=== PATIENT | male | born 1950 | race Caucasian/White ===

== ENCOUNTER 2017-05-02 15:27 | Outpatient (CLI) | payer MEDICARE ==
[2017-05-02] MEDS ORDERED: Iopamidol 370 76% 100 ML VIAL ONE (16:03)
--- NOTE | 2017-05-02 17:13 | CT ---
CT OF THE NECK SOFT TISSUES WITH CONTRAST 05/02/17 COMPARISON: None. HISTORY: Left neck mass and scratchy throat for three weeks. Oral ulceration. TECHNIQUE: Multiple contiguous axial images were obtained in a CT of the neck with contrast. Sagittal and coron al reformats were performed. FINDINGS: There is soft tissue fullness of the palatine tonsils, left greater than right. This soft tissue pro minence appears to touch the uvula. The left parapharyngeal space is slightly displaced laterally. T here are mildly enlarged round left zone 2 lymph nodes in the neck. The largest measures 1.7 cm in g reatest dimension and is slightly decreased in density compared to the others. No enlarged right cer vical lymph nodes are seen. Postsurgical changes are seen from left carotid endarterectomy. Moderate atherosclerotic disease is seen surrounding the right carotid bifurcation with greater than 50% stenosis of the proximal internal sales engineer al carotid artery on the right. Soft tissue swelling is seen in the posterior aspect of the right nasopharynx with opacification of the right ethmoid air cells. The left ethmoid air cells and left nasopharynx are unremarkable. There is mucosal thickening in the right maxillary sinus. The other paranasal sinuses are well aerated. T he mastoid air cells are well aerated. No mucosal abnormality is seen in the subglottic region. The thyroid is unremarkable. The salivary glands are symmetric without focal abnormality. IMPRESSION: 1. Left cervical adenopathy. 2. Soft tissue fullness in the region of the palatine tonsils. Correlate with physical examinat ion. 3. Soft tissue density in the posterior right nasopharynx with opacification of the right masto id air cells. A mass in this location cannot be excluded. Correlate with direct visualization. POS: [facility]
== END 2017-05-02 15:28 | disposition home or self-care (01) ==
LOC: CT 15:27
PROVIDERS: ATTEND Specialist
DX: R22.1 Localized swelling, mass and lump, neck (principal); R59.0 Localized enlarged lymph nodes; J35.8 Other chronic diseases of tonsils and adenoids
CPT/HCPCS: 70491

== ENCOUNTER 2017-05-17 08:39 | Outpatient (CLI) | payer MEDICARE ==
--- NOTE | 2017-05-19 16:33 | PET ---
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 COMPARISON: CT neck soft tissues dated 05/02/17. TECHNIQUE: PET CT performed after the intravenous administration of 12.[address] performed for attenuation purposes only. FINDINGS: At the left palatine tonsil is a mass which is hypermetabolic with central ulceration. This has max SUV of 24.08. There are a total of four (4) abnormal lymph nodes in the left neck. One lymph node in Level IIA has SUV max of 4.95 and measures 7.0 x 12.0 mm. There are two separate lymph nodes in Level IIB which a re abnormal, which are closely approximated. These have a SUV max of 6.78. The more anterior of the lymph nodes measures 1.1 x 1.0 cm and the more posterior lymph node measures 0.9 x 1.0 cm. There is another abnormal Level IIA lymph node with partial loss of the fatty hilum measuring 1.7 x 1.3 cm wi th SUV max 8.45. There is some encephalomalacia in the left HSE MANAGER territory with decreased metabolism. No evidence for distal hypermetabolic metastatic disease. No evidence for contralateral cervical esther nopathy. There is extensive mucosal sinus disease right ethmoids with some high density material which may re present fungal disease versus inspissated secretions. Moderate atherosclerotic plaque of the aorta. Appendix is normal. No dilated loops of large or small bowel. IMPRESSION: 1. FDG-avid malignancy left palatine tonsil with left cervical Level IIA and IIB metastatic lymph n odes, a total of four lymph nodes. Measurements and SUV values are given above. 2. 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 POS: [facility]
== END 2017-05-17 08:40 | disposition home or self-care (01) ==
LOC: PET 08:39
PROVIDERS: ATTEND Radiology Radiation Oncology
DX: C09.8 Malignant neoplasm of overlapping sites of tonsil (principal)
CPT/HCPCS: 78815; A9552

== ENCOUNTER 2017-08-25 08:00 | Outpatient (CLI) | payer MEDICARE ==
--- NOTE | 2017-08-25 09:47 | CT ---
CT NECK WITH CONTRAST: Date: 08/25/17 HISTORY: 66-year-old male with left tonsillar cancer, status post chemotherapy. Restaging. COMPARISON: None. FINDINGS: No evidence of osteonecrosis. The nonspecific mild asymmetric effacement of the left side of the orop haryngeal airway. Otherwise, no evidence of recurrent neoplasm in the region of the palatine tonsils. No other abnormality of pharyngeal mucosal space. Heavy atherosclerotic calcification of right proxi mal internal carotid artery and carotid bulb. Multiple surgical clips in the left carotid space. The retropharyngeal, posterior cervical, submandibular, parotid, directory clerk, and perivertebral space are unremarkable. There is no cervical lymphadenopathy. IMPRESSION: 1. No convincing evidence of recurrent or residual malignant neoplasm. 2. Carotid atherosclertosis. 3. status post neck surgery, either carotid endarterectomy or lymph node dissection. POS: [facility]
[2017-08-25] MEDS ORDERED: Iopamidol 370 76% 100 ML VIAL ONE (13:39)
== END 2017-08-25 08:01 | disposition home or self-care (01) ==
LOC: CT 08:00
PROVIDERS: ATTEND Radiology Radiation Oncology
DX: C09.8 Malignant neoplasm of overlapping sites of tonsil (principal); I65.29 Occlusion and stenosis of unspecified carotid artery
CPT/HCPCS: 70491

== ENCOUNTER 2017-12-31 12:56 | Outpatient (CLI) | payer MEDICARE ==
--- NOTE | 2017-12-31 13:47 | RAD ---
PA AND LATERAL CHEST: HISTORY: Chest pain. FINDINGS: Heart size is within normal limits. There are postop sternotomy changes. The lungs are clear of inf iltrates. Arthritic changes of the spine are noted. IMPRESSION: No active intrathoracic disease. POS: [facility]
== END 2017-12-31 12:57 | disposition home or self-care (01) ==
LOC: RAD 12:56
PROVIDERS: ATTEND Thoracic Surgery (Cardiothoracic Vascular Surgery)
DX: I25.110 Atherosclerotic heart disease of native coronary artery with unstable angina pectoris (principal)
CPT/HCPCS: 71046

== ENCOUNTER 2018-02-12 15:55 | Inpatient (IN) | payer MEDICARE ==
[2018-02-12 16:25] LABS: Hemoglobin 10.5 g/dL (14.0-18.0); Mean Corpuscular HGB CONC 33.9 g/dL (32.0-36.0); Mean Corpuscular Volume 91.3 fL (78.0-98.0); Mean Platelet Volume 6.6 fL (7.4-10.4); Platelet Count 299 thou/uL (130-400); RBC Distribution Width 11.4 % (11.5-14.5); White Blood Cell (WBC) Count 13.5 thou/uL (4.8-10.8)
[2018-02-12 16:45] LABS: ALT (SGPT) 86 U/L (8-55); AST (SGOT) 92 U/L (5-34); Albumin 3.1 g/dL (3.4-4.8); Alkaline Phosphatase 233 U/L (40-150); Anion Gap 13 mmol/L (10-20); BUN (Urea Nitrogen) 62 mg/dL (8.4-25.7); Bilirubin, Total 0.5 mg/dL (0.2-1.2); Calc. Creatinine Clearance 0 mL/min (70-130); Carbon Dioxide 32 mmol/L (23-31); Chloride 97 mmol/L (98-107); Estimated GFR-MDRD 33; Globulin 3.7 g/dL (2.4-3.5); Glucose 120 mg/dL (80-115); Potassium 4.3 mmol/L (3.5-5.1); Protein, Total 6.8 g/dL (5.8-8.1); Sodium 138 mmol/L (136-145)
[2018-02-12 16:49] LABS: CKMB 0.7 ng/mL (0-6.6); Troponin I 0.024 ng/mL (< 0.028)
[2018-02-12 16:50] LABS: Eosinophils 7 % (0-10); Lymphocytes 6 % (21-51); MDiff Complete? YES; Monocytes 11 % (0-10); Neutrophil 74 % (42-75); Ovalocytes SLIGHT = 2-5 cells (100X) (0-1/hpf); PLT Morphology Comment Appears Adequate; Polychromasia SLIGHT = 2-3 cells (100X) (0-2/hpf)
[2018-02-12 16:51] LABS: Calcium 15.9 mg/dL (7.8-10.44)
[2018-02-12 17:36] LABS: Bilirubin Negative (Negative); Blood, Urine Negative (Negative); Clarity CLEAR (Clear); Glucose, Urine (Dipstick) Negative (Negative); Leukocyte Small (Negative); Nitrite Negative (Negative); Protein, Urine (Dipstick) Negative (Neg-Trace); Specific Gravity, Urine 1.017 (1.002-1.036); Urobilinogen 0.2 mg/dL (0.2-1.0)
[2018-02-12 17:38] LABS: Bacteria/HPF None Seen HPF (None Seen); Hyaline Casts/LPF 0-3 HYALINE CAST LPF (0-3 Hyaline); Pathc Cast-AUWi Flag 0.72 (0-2.49); Squamous Epithelial 0-3 HPF (0-3)
[2018-02-12 17:52] LABS: RBC/HPF 0-3 HPF (0-3)
[2018-02-12 17:53] LABS: Crystals/HPF 1+ CA OXALATE HPF (Negative)
[2018-02-12] MEDS ORDERED: Sodium Chloride 0.9% 0 ML ONE (18:00)
[2018-02-12] MEDS ORDERED: cefTRIAXone\\ROCEPHIN 1 GM VIAL ONE (18:00)
--- NOTE | 2018-02-12 18:20 | CT ---
NONCONTRAST CT HEAD: 02/12/18 HISTORY: Altered mental status. COMPARISON: None available. FINDINGS: There is encephalomalacia seen within the left parieto-occipital lobe which may represent remote area of infarction. Small area of encephalomalacia is seen within the left frontal lobe superiorly, also likely related to prior ischemic event. There is no evidence of an acute cortical infarction, hemorrh age, mass effect or midline shift. There is mild ex vacuo dilatation of the occipital horn left later al ventricle. Mild cerebral volume loss is noted. There is minimal mucosal thickening in each maxillary antrum, right sphenoid sinus, and a few ethmoid al air cells bilaterally. The mastoid air cells are clear. calvarial structures are intact. IMPRESSION: 1. No acute intracranial abnormality is demonstrated. 2. Areas of encephalomalacia in the left frontal lobe as well as involving the left parieto-occi pital lobe which are likely related to remote areas of infarction. 3. Mild sinus disease. POS: [facility]
--- NOTE | 2018-02-12 18:35 | RAD ---
CHEST ONE VIEW: 02/12/18 HISTORY: Weakness. COMPARISON: Chest radiograph 12/31/17. FINDINGS: There is a new moderate sized layering right pleural effusion. Heart size is mildly enlarged. Mild pu lmonary venous congestion. Compressive atelectasis right lung base. IMPRESSION: Large right new pleural effusion. POS: [facility]
[2018-02-12] MEDS ORDERED: Sodium Chloride 0.9% 1,000 ML IV SCH (20:36)
[2018-02-12 22:37] LABS: Calcium 14.9 mg/dL (7.8-10.44)
[2018-02-13 00:04] LABS: Anion Gap 15 mmol/L (10-20); BUN (Urea Nitrogen) 60 mg/dL (8.4-25.7); Calc. Creatinine Clearance 42 mL/min (70-130); Carbon Dioxide 26 mmol/L (23-31); Chloride 99 mmol/L (98-107); Estimated GFR-MDRD 35; Glucose 121 mg/dL (80-115); Sodium 136 mmol/L (136-145)
[2018-02-13] MEDS: Sodium Chloride 0.9% 1,000 ML IV SCH ×6 (02:00→22:55)
[2018-02-13] MEDS ORDERED: Ondansetron HCl/PF 4 MG/2 ML Vial IVP PRN (03:05)
[2018-02-13] MEDS ORDERED: Calcium Carbonate 500 MG ChewTAB PO PRN (03:05)
[2018-02-13] MEDS ORDERED: Bisacodyl 10 MG SUPP PR PRN (03:05)
[2018-02-13] MEDS ORDERED: Mag-Al 1200 mg/1200 mg/30 ML UDCUP PO PRN (03:05)
[2018-02-13] MEDS ORDERED: Ondansetron ODT 4 MG TAB PO PRN (03:05)
[2018-02-13] MEDS ORDERED: Nitroglycerin 0.4 MG TAB (25 Tab Bottle) PO PRN (03:17)
[2018-02-13] MEDS ORDERED: hydrALAZINE 20 MG/ML VIAL SLOW IVP PRN (03:18)
[2018-02-13] MEDS ORDERED: Calcitonin,Salmon,Synthetic 200 UNITS/ML SC SCH (04:00)
[2018-02-13 05:42] LABS: Albumin 2.7 g/dL (3.4-4.8); Anion Gap 13 mmol/L (10-20); BUN (Urea Nitrogen) 59 mg/dL (8.4-25.7); BUN/Creatinine Ratio 32.24; Calc. Creatinine Clearance 44 mL/min (70-130); Carbon Dioxide 29 mmol/L (23-31); Chloride 101 mmol/L (98-107); Estimated GFR-MDRD 37; Glucose 90 mg/dL (80-115); Phosphorus 3.8 mg/dL (2.3-4.7); Potassium 4.1 mmol/L (3.5-5.1); Sodium 139 mmol/L (136-145)
[2018-02-13 05:44] LABS: Calcium 14.8 mg/dL (7.8-10.44)
[2018-02-13 05:47] LABS: LDH 419 U/L (125-220); Lipase 11 U/L (8-78)
[2018-02-13 06:05] LABS: Thyroid Stimulating Hormone 0.8303 uIU/mL (0.35-4.94); Vitamin D, 25 Hydroxy 34.3 ng/ml (> 30.0)
[2018-02-13 06:46] LABS: Vitamin B12 Greater than 2000 pg/mL (211-911)
--- NOTE | 2018-02-13 09:00 | HP ---
DATE OF ADMISSION: 02/12/2018 The patient was seen and examined on 02/12/2018. PRIMARY CARE PHYSICIAN: Shun Cunningham M.D. PRIMARY DIRECTOR ACUTE: Dr. Pinzon. PRIMARY ONCOLOGIST: Dr. Mederos. CHIEF COMPLAINT: Generalized weakness and loss of appetite. HISTORY OF PRESENT ILLNESS: The patient is a 67-year-old white male with a tonsillar cancer, diagnos ed last year; coronary artery disease, status post non-ST elevation [place], last admission; hypertension; hyperlipidemia; and peripheral vascular disease; was brought in to the emergency room by family with above complaints. The patient was evaluated by his PCP 3 days ago for similar complaint. 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 He completed radiation and chemotherapy. He was evaluated by Dr. Mederos 2 months ago. Over the past 2 months, the patient has been progressively declining. He has lost approximately 3 pounds in the last week. His weakness got worse over the last 24 hours to the extent that he was unable to get up from the commode. He gets short of breath on mild to moderate exertion. He had some diarrhea th at has resolved. No vomiting reported. PAST MEDICAL HISTORY: 1. Tonsillar cancer, invasive poorly differentiated, diagnosed last year, completed chemotherapy and radiation. 2. Coronary artery disease, status post non-ST elevation [place] as well as CABG. 3. Peripheral vascular disease. 4. Hypertension. 5. Hyperlipidemia. 6. Left carotid artery stenosis, status post angioplasty. 7. Former smoker. PAST SURGICAL HISTORY: 1. Hernia repair. 2. Bilateral lower extremity angioplasty. 3. Coronary artery bypass grafting. 4. Left carotid endarterectomy. ALLERGIES: No known drug allergies. CURRENT HOME MEDICATIONS: Aspirin 81 mg daily, Coreg 6.25 mg b.i.d., vitamin B12 of 1000 mcg daily, iron daily, lisinopril 5 mg at bedtime. The patient also takes Aleve on a daily basis which helps hi m to sleep. SOCIAL HISTORY: The patient currently lives at home with his . He is retired from [employer]. He is a former smoker. No alcohol or drug use. He makes his own decisions with the help of his family. FULL CODE. FAMILY HISTORY: Mother with coronary artery disease. REVIEW OF SYSTEMS: The following complete review of systems was negative, unless otherwise mentioned in the HPI or below: Constitutional: Weight loss or gain, ability to conduct usual activities. Sk in: Rash, itching. Eyes: Double vision, pain. ENT/Mouth: Nose bleeding, neck stiffness, pain, te nderness. Cardiovascular: Palpitations, dyspnea on exertion, orthopnea. Respiratory: Shortness of breath, wheezing, cough, hemoptysis, fever or night sweats. Gastrointestinal: Poor appetite, abdom inal pain, heartburn, nausea, vomiting, constipation, or diarrhea. Genitourinary: Urgency, frequenc y, dysuria, nocturia. Musculoskeletal: Pain, swelling. Neurologic/Psychiatric: Anxiety, depressio n. Allergy/Immunologic: Skin rash, bleeding tendency. PHYSICAL EXAMINATION: VITAL SIGNS: In the emergency room, temperature 98.5, respirations 16, pulse 94, blood pressure 145/ 79 with O2 saturation 100% on room air. GENERAL: A 67-year-old male, ill-appearing with generalized weakness. HEENT: Head atraumatic, normocephalic. Sclerae are anicteric. Dry mucous membranes. No oral lesio n. NECK: Supple, no JVD appreciated. No carotid bruit. LUNGS: Showed diminished air entry at right base with scattered rhonchi. Lungs were symmetrical. N o wheezing appreciated. HEART: S1, S2 present. Regular rate and rhythm. No murmur, rubs, or gallops appreciated. ABDOMEN: Soft, bowel sounds present. No rebound, guarding, no costovertebral angle tenderness. EXTREMITIES: No edema or calf tenderness. NEUROLOGIC: Grossly nonfocal, moves all four extremities. PSYCHIATRIC: Alert, awake, oriented x3. Slow to respond. PERIPHERAL VASCULAR: Radial pulses palpable bilaterally. MUSCULOSKELETAL: No joint swelling or tenderness. LABORATORY AND X-RAY FINDINGS: 1. CT scan of the brain was negative for acute findings. 2. Chest x-ray by my review showed large right-sided new pleural effusion. 3. Calcium of 15.9 with creatinine 2.0, BUN 62. His creatinine in June was 1.11. 4. Alkaline phosphatase 233, AST 92, ALT 86, albumin 3.1. BNP 137. Sodium 138, potassium 4.3, chlo ride 97, bicarbonate 32. 5. WBC was 13.5 with hemoglobin 10.5, hematocrit 31, platelet 299 without significant left shift. 6. EKG by my review showed sinus rhythm with nonspecific ST-T wave changes in the lateral leads. IMPRESSION: 1. Generalized weakness, multifactorial. 2. Severe hypercalcemia. 3. Acute kidney injury on chronic kidney disease, stage 2. 4. Dehydration. 5. Abnormal liver function tests of unclear etiology. 6. Moderate protein calorie malnutrition. 7. Coronary artery disease, status post coronary artery bypass grafting and myocardial infarction in the past. 8. Peripheral vascular disease. 9. Hypertension. 10. New right-sided pleural effusion. 11. Former smoker. 12. Hyperlipidemia. 13. Pyuria, rule out urinary tract infection. PLAN: The patient will be monitored on the telemetry unit. We will continue aggressive IV hydration for hypercalcemia. We will repeat labs to confirm hypercalcemia. We will check phosphorus and para thyroid hormone level. We will consult Oncology and Nephrology. We will consult dietitian for poor appetite. He was advised to discontinue nonsteroidal anti-inflammatory drugs. Echocardiogram will b e obtained. We will also get right upper quadrant ultrasound due to abnormal liver function tests. We will check cortisol, TSH, vitamin B12, folic acid. Check LDH in a.m. PT, OT will be consulted. If the patient does not respond to IV hydration, we will consider zoledronic acid. Plan of care was discussed with the patient and the family at the bedside. They stated understanding .
[2018-02-13] MEDS: Carvedilol 6.25 MG TAB PO SCH ×2 (09:11→16:34)
[2018-02-13] MEDS: Folic Acid 1 MG TAB PO SCH ×2 (09:11→20:19)
[2018-02-13] MEDS: Famotidine 20 MG TAB PO SCH (09:11)
[2018-02-13] MEDS: Senokot S 8.6-50 MG TAB PO SCH ×2 (09:12→20:19)
[2018-02-13] MEDS: Polyethylene Glycol 3350 17 GM Packet PO SCH ×2 (09:12→20:19)
--- NOTE | 2018-02-13 10:51 | ULT ---
RIGHT UPPER QUADRANT ULTRASOUND: History: Abnormal liver function test. There is a history of esophageal cancer. FINDINGS: Gallbladder is poorly distended. There are numerous echogenic foci seen along the gallbladder which c ould represent polyps or nonshadowing gallstones. There is echogenic sludge/gravel within the gallbla dder. Gallbladder wall is mildly prominent, accentuated by the mild contraction of the gallbladder. Common bile duct is normal caliber measured at 3 mm. The liver is mildly heterogeneous. There are two hypoechoic nodular masses seen in the liver, one in the right lobe measuring 1 to 1.5 cm and another in the left lobe measuring approximately 1.5 cm. Small amount of ascites is seen along the liver margin. There is a right pleural effusion identified. The right kidney measures 11.6 cm in length and appears unremarkable. The pancreas is obscured. IMPRESSION: 1. Numerous gallbladder polyps and/or nonshadowing gallstones along the gallbladder wall. The gallbla dder is mildly contracted. Dense sludge/gravel is seen layering dependently in the gallbladder. 2. The liver is heterogenous. There are at least two hypoechoic masses seen which are concerning for metastatic lesions. Recommend further evaluation of the abdomen with CT scan with and without contras t. POS: [facility]
--- NOTE | 2018-02-13 11:04 | ULT ---
RENAL SONOGRAM: 02/13/2018 HISTORY: Acute renal insufficiency. FINDINGS: The kidneys demonstrate a normal sonographic appearance bilaterally without evidence of a renal mass, a renal calculus, or hydronephrosis. The right kidney measures 11.6 cm x 5.4 cm with the left kidne y measuring 11.1 cm x 6.9 cm. The urinary bladder is incompletely distended but has a normal sonographic appearance. Color-flow ev aluation does demonstrate ureteral jets bilaterally on color-flow evaluation. The prostate gland is slightly heterogeneous and mildly prominent. IMPRESSION: Normal appearing bilateral kidneys without evidence of hydronephrosis. POS: [facility]
[2018-02-13] MEDS ORDERED: Lidocaine 1% (PF) 30 ML VIAL ONE (11:22)
[2018-02-13 11:54] LABS: Anion Gap 12 mmol/L (10-20); BUN (Urea Nitrogen) 55 mg/dL (8.4-25.7); Calc. Creatinine Clearance 42 mL/min (70-130); Carbon Dioxide 27 mmol/L (23-31); Estimated GFR-MDRD 35; Glucose 113 mg/dL (80-115); Potassium 4.1 mmol/L (3.5-5.1); Sodium 139 mmol/L (136-145)
--- NOTE | 2018-02-13 11:58 | CON ---
DATE OF CONSULTATION: 02/13/2018 HISTORY OF PRESENT ILLNESS: Mr. Villalobos is a 67-year-old white male who was admitted for generalized w eakness and decreased appetite. He is complaining of these signs and symptoms for the last 3 weeks. He did see his PCP. He was noted to be anemic/low iron and was given supplemental iron. Due to the persistent generalized malaise and weakness the patient was admitted for further management. During the initial evaluation, he was noted to have acute kidney injury with hypercalcemia. Her initial ca lcium was noted to be more than 15. He received calcitonin. He also is receiving normal saline at 2 00 mL per hour. We are now being consulted for further management of his acute kidney injury. REVIEW OF SYSTEMS: Positive for generalized malaise. No nausea, decreased appetite. No joint pains , no syncopal episode, no productive cough, no fever or chills, no shortness of breath, no gross tracie turia, no dysuria, no urinary frequency. Decreased energy level. No new skin rash, no diplopia, no headache, no dysuria, no urine frequency. MEDICATIONS: Status post calcitonin, aspirin 81 mg every day, Tums 1000 mg p.r.n., Coreg 6.25 mg b.i .d., Pepcid 20 mg once a day, Folvite 1 mg p.o. b.i.d., Zofran 4 mg IV q.6 hours, normal saline at 20 0 mL an hour. PAST MEDICAL HISTORY: Shows history of coronary artery disease, tonsillar cancer, invasive poorly di fferentiated, diagnosed last year, status post chemotherapy and radiation, peripheral vascular diseas e, hypertension, hyperlipidemia. History of left carotid artery stenosis. PAST SURGICAL HISTORY: 1. Status post tonsillar biopsy. 2. Status post hernia repair. 3. Status post bilateral lower extremity angioplasty. 4. Status post angioplasty of left carotid artery stenosis. 5. Status post cardiac catheterization. 6. Status post CABG. ALLERGIES: None. TRAUMA: None. IMMUNIZATIONS: Up to date. HOSPITALIZATIONS: Please see past medical history. SOCIAL HISTORY: The patient is , retired production maintenance technician. One child. He lives in [facility]. He used to smoke heavily, 2 packs per day for about 30 years. Moderate alcohol drinker, but no a lcohol in the last 3 weeks. Education: High school. No IV drug abuse. No blood transfusion. FAMILY HISTORY: No family history of ESRD. PHYSICAL EXAMINATION: VITAL SIGNS: Blood pressure 180/89, heart rate 68, respiratory rate 18, temperature 97.7, pulse ox 9 5%. GENERAL: Noted to be awake, alert, comfortable, not in overt distress. SKIN: Adequate turgor. HEENT: He has pinkish conjunctivae, anicteric sclerae. NECK: No neck mass, no carotid bruits, no JVD. CHEST: No deformities. LUNGS: Clear breath sounds, no wheezing, no crackles. HEART: Normal sinus rhythm. No murmur, no gallops or rubs. ABDOMEN: Globular, soft, nontender, no masses. EXTREMITIES: No edema, no deformities. LABORATORY: 02/12/2018 - White count 13.5, hemoglobin 10.5. Sodium 139, potassium 4.1, chloride 101 , carbon dioxide 29, BUN 59, creatinine 1.83, calcium of 14.8, phosphorus 3.8, albumin 2.7, PTH is 8. 2. TSH 0.8. Further review of his serum calcium shows 02/12/2018 15.9. Urinalysis; specific gravity 1.017, positive for calcium oxalate, WBCs 7-10, RBCs, 0-3, no protein. Chest x-ray of 02/12/2018 shows right new pleural effusion. CT scan of the brain, no acute intracranial abnormality. Renal ultrasound pending. ASSESSMENT AND PLAN: 1. Acute kidney injury - this could be a hemodynamically mediated renal dysfunction in a background of decreased p.o. intake and decreased appetite. He has also been receiving lisinopril at home. The plan is aggressive volume repletion with this patient. Hold off lisinopril. No indication for any dialytic intervention. 2. Hypercalcemia. With the decrease PTH I am concerned of malignancy related hypercalcemia, especia lly in a background of tonsillar carcinoma. Hematology has been consulted. Please note the patient is status post calcitonin. No significant improvement in the hypercalcemia, consider zoledronic acid 4 mg IV over 15 minutes. I would at least check a PTH related protein with this patient, 125 hydrox yvitamin and 25 hydroxyvitamin D. 3. Acute kidney injury. The acute kidney injury hopefully will improve over time with aggressive volume repletion. Overall, prognosis remains guarded.
[2018-02-13 12:11] LABS: Chloride 104 mmol/L (98-107)
[2018-02-13 12:40] LABS: Fluid, Triglycerides 28 mg/dL (Not Available); Pleural Fluid, Amylase Less than 30 U/L (Not Available); Pleural Fluid, Glucose 93 mg/dL; Pleural Fluid, LDH 419 U/L (Not Available); Pleural Fluid, Protein 3.5 g/dL
[2018-02-13 13:14] LABS: BF Color Yellow; Body Fluid Source PLEURAL FLUID; Clarity Hazy (Clear); Tube # EDTA; WBC/NonHematic-Auto 766 /cumm
[2018-02-13 13:15] LABS: BF RBC Count - Manual 3475 /cumm
--- NOTE | 2018-02-13 13:27 | CON ---
DATE OF CONSULTATION: 02/13/2018 HISTORY: This is a 67-year-old gentleman who presented to the hospital with marked weakness. He saw Dr. Mederos, his oncologist, 2 weeks ago who said his cancer was apparently well controlled. He rec eived chemo and radiation for a tonsillar cancer. He denies any chest pain, though his said he is coughing, but no shortness of breath, fever or c hills. X-ray shows a large right pleural effusion. He has smoked in the past, quit smoking at the time when he had his coronary bypass graft surgery don e several years ago. Denies any previous history of TB, pneumonia or bronchitis. PAST MEDICAL HISTORY: Coronary artery disease, peripheral vascular disease, hypertension, history of tonsillar cancer, squamous cell, radiation and chemo. PAST SURGICAL HISTORY: Coronary bypass graft, left carotid endarterectomy, radiation and chemo to hi s left tonsillar area. Apparently some kind of a lower extremity vascular disease. HOME MEDICATIONS: His medicine from home includes Coreg 6.25, B12, aspirin, Zestril 5. SOCIAL HISTORY: He owned a business. REVIEW OF SYSTEMS: Otherwise, pertinent for significant weight loss. PHYSICAL EXAMINATION: GENERAL: He is in no distress. VITAL SIGNS: Blood pressure is 180/80, temperature 97, sats 100%, respiratory rate of 18. CHEST: Chest revealed decreased breath sounds in the right lung. Left lung unremarkable. CARDIAC: Normal S1, S2, no gallops. ABDOMEN: Soft. No masses. LABORATORY: Creatinine 1.83, calcium is 14.8. White count 13,000, hemoglobin and hematocrit 10 and 31, platelet count is normal. IMPRESSION: 1. Marked hypercalcemia. 2. Renal failure. 3. Squamous cell carcinoma. 4. Right pleural effusion. PLAN: Aggressive hydration. A diagnostic tap is being made, further recommendation after above. We will follow. This is a consultation note, 70 minutes, 50% spent in direct patient care.
[2018-02-13 13:30] LABS: BF Segmented Neutrophils 37 %; Cell Count Non Hematic 28 %; Eosinophils 22 %; Lymphocytes 12 %
--- NOTE | 2018-02-13 13:33 | OP ---
DATE OF PROCEDURE: 02/13/2018 SURGEON: Dr. Stan Cline PROCEDURE: Thoracentesis. PROCEDURE IN DETAIL: After informed consent, the patient is supine in bed. The right posterior thor ax was cleaned with chlorhexidine and 1% Xylocaine infiltrated into the right 9th intercostal space a nd midscapular and pleural cavity was entered, 20 mL of turbid yellow fluid was removed. Thereafter, using an 8 Malagasy catheter, a total of 2000 mL 2 liters was removed without difficulty. He did coug h during the procedure. There appears to be some additional fluid, but the procedure was terminated because of his coughing. Fluid will be sent for appropriate studies including cytology and culture.
--- NOTE | 2018-02-13 13:42 | RAD ---
1 VIEW CHEST: Date: 02/13/18 COMPARISON: 02/12/18. HISTORY: Status post thoracentesis. FINDINGS: Improved aeration of the right lung. Small amount of pleural and parenchymal changes in the right marycarmen g base do remain. Stable aeration of the left lung. Sternotomy wires are again noted. Stable configur ation of the cardiac silhouette. No definite pneumothorax. IMPRESSION: Improved aeration of the right lung. Residual pleural and parenchymal changes do remain. No pneumotho rax. POS: [facility]
[2018-02-13 14:30] LABS: Reference Lab Name LABCORP
[2018-02-13 14:31] LABS: Ref Lab Test Ordered PTH RELATED PEPTIDE
[2018-02-13] MEDS: Heparin 5,000 UNITS/ML VIAL SC SCH (20:20)
--- NOTE | 2018-02-13 23:47 | CON ---
DATE OF CONSULTATION: 02/13/2018 REASON FOR CONSULTATION: Hypercalcemia. HISTORY OF PRESENT ILLNESS: Mr. 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 He was treated with radiation and chemotherapy, which was completed in 06/2017. There was no evidence of disease on endoscopy in November by Dr. Costa. He presented to his primary care 2 weeks ago with acute onset of bilateral lower extremity weakness with numbness and tingling. He also had trouble eating and lost approximately 20 pounds. CBC done at his primary care's office on 2017 showed a white count of 8.6 with a hemoglobin of 9.8 and platelet count 226 ,000. He had a serum iron of 21. He was started on IV iron. He presented to my clinic day before yesterday for workup for his anemia. He was alert and oriented, but continued to have difficulty ambulating. He had numbness and tingling that started his foot and extended up to his mid thigh bilaterally. The CBC showed a hemoglobin of 9.6. His chemistry provided from his primary care 2 weeks prior did show no elevation of calcium. He was given a B12 injection and instructed to follow up for possible CT scans of his spine. Yesterday they called our office, he was more confused and was instructed to come to the emergency room for further evaluation. A chest x-ray performed showed a large right pleural effusion. Brain CT showed no acute process. Dr. Cline was consulted and performed a thoracentesis with removal of 2000 mL of turbid yellow fluid and was sent for cytology and culture. The patient's calcium on admission was 14.8. He was given calcitonin and started on IV fluids as PTH is 8.2. His liver enzymes were mildly elevated. He had an abdominal ultrasound performed which showed a gallbladder polyps and sludge. His liver was heterogeneous with 2 hypoechoic masses that were concerning for metastatic lesions. His kidney function was compromised with a creatinine of 2.04. He has received IV fluids. Dr. Francois is managing his kidney function. He does feel somewhat better since arrival. PAST MEDICAL HISTORY: 1. Squamous cell carcinoma of the left tonsil, status post chemoradiation in . 2. Hypertension. 3. Hyperlipidemia. 4. Coronary artery disease. 5. Peripheral vascular disease. 6. Carotid stenosis. 7. Chronic tobacco use. 8. Questionable CVA in 2016. PAST SURGICAL HISTORY: 1. Hernia repair. 2. Carotid endarterectomy. 3. Bilateral angioplasty. 4. Coronary artery bypass grafting. ALLERGIES: No known drug allergies. HOME MEDICATIONS: 1. Aspirin 81 mg daily. 2. Coreg 6.25 mg b.i.d. 3. B12 daily. 4. Iron b.i.d. 5. Lisinopril 5 mg daily. FAMILY HISTORY: No known history of malignancy. SOCIAL HISTORY: He is and has 3 children, lives with his spouse. He is a former smoker, quit in 2014. No alcohol or illicit drug use. REVIEW OF SYSTEMS: Constitutional: No fever, chills, night sweats. Eyes: No blurred or double vision. ENT: No pain, hoarseness, sore throat, dysphagia. Cardiovascular: No chest pain, palpitations, syncope. Respiratory: No shortness of breath, dyspnea on exertion. Gastrointestinal: Positive for nausea, no vomiting, constipation or abdominal pain. Genitourinary: No dysuria or hematuria. Musculoskeletal: Positive for back pain and bilateral lower extremity weakness. Skin: No rash. Hematologic: No bleeding, bruising or clotting. Neurologic: Positive for weakness, numbness and tingling. No headache or seizure disorder. Psychiatric: No anxiety or depression. PHYSICAL EXAMINATION: VITAL SIGNS: Temperature is 98.2, pulse is 83, respiratory rate 20, blood pressure is 170/84. GENERAL: Well-developed, well-nourished male, in no acute distress. HEENT: Normocephalic, atraumatic. Pupils are equal and reactive to light. NECK: Supple. CARDIOVASCULAR: Regular rate and rhythm. LUNGS: Clear. ABDOMEN: Soft, nontender, bowel sounds are positive. EXTREMITIES: No clubbing, cyanosis or edema. SKIN: No rash. HEMATOLOGIC: No petechia or purpura. NEUROLOGICAL: Nonfocal. PSYCHIATRIC: The patient is alert and oriented and appropriate. PERTINENT LABORATORY AND X-RAYS: Current WBCs are 13.5, hemoglobin 10.5, hematocrit 31, platelet count is 299,000, 74% neutrophils, 6% lymphocytes, 11% monocytes. Sodium is 136, potassium 4.0, chloride 99, CO2 is 26, BUN is 60, creatinine 1.92, calcium is 14.7, phosphorus 3.7, bilirubin is 0.5, AST is 92, ALT is 86, alkaline phosphatase is 233, CK-MB is 0.7, troponin is 0.024, BNP is 137, serum total protein is 6.8, albumin 3.1, globulin 3.7. PTH is 8.2. Urine is negative for bacteria. ASSESSMENT: 1. Hypercalcemia. 2. Right pleural effusion. 3. Acute kidney injury. 4. History of squamous cell carcinoma of the left tonsil. DISCUSSION: The patient is on IV fluids. Calcitonin has been given. We will consider Zometa in few days if his calcium does not improve. We will await cytology on the pleural fluid. The patient needs a CT scan of his chest, abdomen, and pelvis once his kidneys have improved. The case was discussed with Dr. Francis who is currently salesperson corsets this weekend. Thank you for the consult. FELTON
[2018-02-14] MEDS: Sodium Chloride 0.9% 1,000 ML IV SCH ×4 (04:27→21:02)
[2018-02-14 05:12] LABS: Albumin 2.4 g/dL (3.4-4.8); Anion Gap 12 mmol/L (10-20); BUN (Urea Nitrogen) 56 mg/dL (8.4-25.7); BUN/Creatinine Ratio 30.27; Calc. Creatinine Clearance 44 mL/min (70-130); Carbon Dioxide 25 mmol/L (23-31); Chloride 107 mmol/L (98-107); Estimated GFR-MDRD 37; Glucose 87 mg/dL (80-115); Phosphorus 3.5 mg/dL (2.3-4.7); Potassium 3.7 mmol/L (3.5-5.1); Sodium 140 mmol/L (136-145)
[2018-02-14 05:43] LABS: Band 6 % (5-11); Eosinophils 1 % (0-10); Hemoglobin 8.7 g/dL (14.0-18.0); Hypochromia SLIGHT = 6-15 cells (100X) (0-5/hpf); Lymphocytes 1 % (21-51); MDiff Complete? YES; Mean Corpuscular HGB CONC 33.9 g/dL (32.0-36.0); Mean Corpuscular Hemoglobin 31.2 pg (27.0-31.0); Mean Corpuscular Volume 92.3 fL (78.0-98.0); Mean Platelet Volume 6.6 fL (7.4-10.4); Monocytes 11 % (0-10); Neutrophil 81 % (42-75); PLT Morphology Comment Appears Adequate; Platelet Count 225 thou/uL (130-400); RBC Distribution Width 11.5 % (11.5-14.5); Red Blood Cell (RBC) Count 2.78 mill/uL (4.70-6.10); White Blood Cell (WBC) Count 11.7 thou/uL (4.8-10.8)
[2018-02-14] MEDS: Senokot S 8.6-50 MG TAB PO SCH ×2 (09:24→21:02)
[2018-02-14] MEDS: Folic Acid 1 MG TAB PO SCH ×2 (09:24→21:02)
[2018-02-14] MEDS: Famotidine 20 MG TAB PO SCH (09:24)
[2018-02-14] MEDS: Carvedilol 6.25 MG TAB PO SCH ×2 (09:24→18:38)
[2018-02-14] MEDS: Heparin 5,000 UNITS/ML VIAL SC SCH ×2 (09:25→21:01)
[2018-02-14] MEDS: Polyethylene Glycol 3350 17 GM Packet PO SCH (09:28)
--- NOTE | 2018-02-14 11:29 | PRG ---
DATE OF SERVICE: 02/12/2018 SERVICE: Renal Medicine. SUBJECTIVE: Mr. Villalobos is a 67-year-old white male who was seen for his acute kidney injury as well a s hypercalcemia. He has received calcitonin and currently undergoing IV hydration. Renal function h as remained stable in the last 24 hours. He is continuing to receive normal saline. In the interim, he had thoracentesis done with 2 liters of fluid removed. He was evaluated by Dr. Sanchez in. Cytology was sent. No complaints of chest pain or shortness of breath. OBJECTIVE: VITAL SIGNS: Blood pressure is 168/74, heart rate 85, respiratory rate 22, temperature 98.8, pulse o x 94%. GENERAL: Noted to be awake, alert, comfortable, not in distress. SKIN: Adequate turgor. HEENT: Pinkish conjunctivae, anicteric sclerae. NECK: No neck mass, no carotid bruits, no JVD. CHEST: No deformities. LUNGS: Decreased breath sounds. HEART: Normal sinus rhythm. No murmur, no gallops, no rubs. ABDOMEN: Globular, soft, nontender, no masses. EXTREMITIES: No edema, no deformities. MEDICATIONS: Medications of 02/14/2018 was reviewed. LABORATORY DATA: Laboratories of 02/14/2018, sodium 140, potassium 3.7, chloride 107, carbon dioxide 25, BUN 56, creatinine 1.85, GFR 37 mL per minute. Calcium is 13, phosphorus 3.5, albumin 2.4. White count 11.7, hemoglobin 8.7. ASSESSMENT AND PLAN: 1. Hypercalcemia -- most likely related to his underlying malignancy. Being worked up for possible mets. 2. Acute kidney injury. This most likely is a hemodynamically mediated renal dysfunction. Currentl y receiving normal saline 200 mL per hour to help improve the hypercalcemia as well as improve the re nal perfusion. He is off his diuretics. 3. Tonsillar carcinoma -- Oncology consulted. Continue supportive care.
--- NOTE | 2018-02-14 11:57 | EKG ---
Test Reason : Blood Pressure : / mmHG Vent. Rate : 094 BPM Atrial Rate : 094 BPM P-R Int : 132 ms QRS Dur : 082 ms QT Int : 332 ms P-R-T Axes : 000 027 -01 degrees QTc Int : 415 ms Normal sinus rhythm Cannot rule out Inferior infarct , age undetermined Abnormal ECG Confirmed by RAFA HUTCHISN ([id number]), technical editor FERN VÁZQUEZ ([id number]) on 02/14/2018 11:57:30 AM Referred By: CUONG Confirmed By:RAFA HUTCHINS
--- NOTE | 2018-02-14 17:40 | PRG ---
DATE OF SERVICE: 02/14/2018 SUBJECTIVE: This morning, he is confused, agitated, less short of breath. His echo showed that his EF was normal. Pleural effusion was an exudate. PHYSICAL EXAMINATION: VITAL SIGNS: Blood pressure is 160/74, sats are 98% on room air, respiration 22, temperature 98. CHEST: Decreased breath sounds in right. Left lung unremarkable. CARDIAC: Normal S1 and S2. No gallops. ABDOMEN: Soft. LABORATORY DATA: Calcium is 13.1. BUN and creatinine are 56 and 1.85. IMPRESSION: 1. Hypercalcemia. 2. Right pleural effusion, awaiting cytology. 3. Head and neck cancer. PLAN: The question whether the hypercalcemia needs to be treated aggressively more so . Puljuana charlton will follow, concerned about his psychosis.
[2018-02-14] MEDS ORDERED: Acetaminophen 325 MG TAB PO SCH (18:45)
[2018-02-15] MEDS: Polyethylene Glycol 3350 17 GM Packet PO SCH ×3 (01:24→21:09)
[2018-02-15] MEDS: Sodium Chloride 0.9% 1,000 ML IV SCH ×6 (02:32→12:54)
[2018-02-15] MEDS: Acetaminophen 500 MG TAB PO PRN ×2 (09:06→21:05)
[2018-02-15] MEDS: Heparin 5,000 UNITS/ML VIAL SC SCH ×2 (09:06→21:05)
[2018-02-15] MEDS: Folic Acid 1 MG TAB PO SCH ×2 (09:06→21:05)
[2018-02-15] MEDS: Famotidine 20 MG TAB PO SCH (09:06)
[2018-02-15] MEDS: Carvedilol 6.25 MG TAB PO SCH ×2 (09:06→17:59)
[2018-02-15] MEDS: Senokot S 8.6-50 MG TAB PO SCH ×2 (09:08→21:05)
[2018-02-15 10:38] LABS: Anion Gap 13 mmol/L (10-20); BUN (Urea Nitrogen) 49 mg/dL (8.4-25.7); Calc. Creatinine Clearance 41 mL/min (70-130); Carbon Dioxide 23 mmol/L (23-31); Chloride 108 mmol/L (98-107); Estimated GFR-MDRD 33; Glucose 102 mg/dL (80-115); Potassium 3.5 mmol/L (3.5-5.1); Sodium 140 mmol/L (136-145)
[2018-02-15 10:50] LABS: Calcium 12.9 mg/dL (7.8-10.44)
[2018-02-15] MEDS ORDERED: Zoledronic Acid 3 MG in Sodium Chloride 0.9% 100 ML IVPB SCH (11:45)
[2018-02-15] MEDS: Albumin 25% 25 GM/100 ML BOT IVPB SCH ×2 (12:51→17:59)
--- NOTE | 2018-02-15 12:55 | PRG ---
DATE OF SERVICE: 02/15/2018 SUBJECTIVE: Mr. Villalobos is a 67-year-old white male with known history of tonsillar carcinoma and was admitted for acute kidney injury with hypercalcemia. He received calcitonin. However, serum calcium is still noted to be elevated, but did improve. Most recent calcium is now 12.9. His renal functio n remains unimproved. He most likely has seen a hemodynamically mediated renal dysfunction secondary to the hypercalcemia. He has been receiving normal saline at 200 mL per hour. His urine output caleb ewhat decreased. My plan is to decrease the normal saline to 150 mL per hour. I have decided to pro ceed with Zometa and adjusted for the renal dose. He did have a significant pleural effusion and a t horacentesis has been done where it was sent for cytology. Oncology still is following. No new comp laints today. The patient is still sleepy. OBJECTIVE: VITAL SIGNS: Blood pressure is 167/81, heart rate 91, respiratory rate 16, temperature 99.5, pulse o x 93%. GENERAL: Noted to be sleepy, but arousable, comfortable, not in overt distress SKIN: Adequate turgor. HEENT: He has slightly pale conjunctivae, anicteric sclerae. NECK: No neck mass, no carotid bruits, no JVD. CHEST: No deformities. LUNGS: Decreased breath sounds. HEART: Normal sinus rhythm. No murmur, no gallops, no rubs. ABDOMEN: Globular, soft, nontender. EXTREMITIES: No edema. MEDICATIONS: Of 02/15/2018 was reviewed. LABORATORY DATA: Of 02/14/2018, white count 11.7, hemoglobin 8.7. On 02/15/2018, sodium 140, potass ium 3.5, chloride 108, carbon dioxide 23, BUN 49, creatinine 2.0. Calcium is 12.9. On 02/14/2018, a lbumin 2.4. ASSESSMENT AND PLAN: 1. Acute kidney injury, consider hemodynamically mediated renal dysfunction secondary to the hyperca lcemia. Urine output has been decreasing. We will decrease normal saline to 150 mL per hour. We wi ll also add salt poor albumin 25 grams IV q.6 hours with this patient. 2. Hypercalcemia, most recent calcium is still 12.9 - that is fully resolved. Start Zometa 3 mg IV to run over 15 minutes. This is adjusted for renal dosing. 3. Tonsillar carcinoma, status post radiation and chemotherapy ? - most likely the source of the hyp ercalcemia. The plan is to work him up for metastatic lesion. Oncology is following. Overall, prognosis remains guarded.
--- NOTE | 2018-02-15 14:34 | PRG ---
DATE OF SERVICE: 02/15/2018 PHYSICAL EXAMINATION: VITAL SIGNS: This morning, his sats are 93% on room air, respiration 16, blood pressure is 167/81, t emperature 99. GENERAL APPEARANCE: Still confused. CHEST: Decreased breath sounds, no wheezing. CARDIAC: Normal S1, S2, no gallops. ABDOMEN: Soft. No masses. LABORATORY DATA: Creatinine is 2. Calcium was decreased to 12.9. IMPRESSION: 1. Hypercalcemia, probably secondary to metastatic disease. 2. Renal failure, improving. 3. Right pleural effusion. PLAN: Awaiting cytology. Continue supportive care. Await cytology. We will follow.
--- NOTE | 2018-02-15 15:16 | PDOC.PN ---
- Subjective Encounter Start Date: 02/15/18 Encounter Start Time: 13:10 Pt a little slower today than yesterday, speech a little more slured. less agitated overnight, no F/C, no N/V/d/c. Cr up, UOP down, albumin, increased IV fluids and zometa added by Dr Francois with nephrology Family at bedside and updated all systems reviewed adn neg x as above - Objective Resuscitation Status: Resuscitation Status FULL:Full Resuscitation Vital Signs & Weight: Vital Signs (12 hours) Temp Pulse Resp BP BP Pulse Ox 02/15/18 09:06 167/81 H 02/15/18 07:05 99.5 F 91 16 93 L 02/15/18 07:00 99.5 F 91 16 167/81 H 93 L 02/15/18 04:00 98.4 F 111 H 13 177/85 H 94 L Weight Admit Weight 179 lb 6.4 oz Weight 180 lb 3.2 oz I&O: 02/14/18 02/15/18 02/16/18 06:59 06:59 06:59 Intake Total 5416 2400 Output Total 1800 750 Balance 3616 1650 Result Diagrams: 02/14/18 04:39 02/15/18 10:00 Radiology Reviewed by me: Yes Phys Exam - Physical Examination Constitutional: NAD HEENT: PERRLA, moist MMs, sclera anicteric, oral pharynx no lesions Neck: no nodes, no JVD, supple, full ROM Respiratory: no wheezing, no rales, no rhonchi, clear to auscultation bilateral Cardiovascular: RRR, no significant murmur, no rub Gastrointestinal: soft, non-tender, no distention, positive bowel sounds Musculoskeletal: pulses present, edema present Neurological: non-focal, normal sensation, moves all 4 limbs Lymphatic: no nodes Psychiatric: normal affect, A&O x 3 Skin: no rash, normal turgor, cap refill <2 seconds Dx/Plan (1) Hypercalcemia Code(s): E83.52 - HYPERCALCEMIA Status: Acute Comment: down barely to 12.9. increased IVF and albumin plus zometa added (2) History of malignant neoplasm of tonsil Code(s): Z85.818 - PRSNL HX OF MALIG NEOPLM OF SITE OF LIP, ORAL CAV, & PHARYNX Status: Chronic Comment: suspect paraneoplastic process. PET planned (3) LIZETH (acute kidney injury) Code(s): N17.9 - ACUTE KIDNEY FAILURE, UNSPECIFIED Status: Acute Comment: Cr up to 2.00 (4) CAD (coronary artery disease) Code(s): I25.10 - ATHSCL HEART DISEASE OF [place] CORONARY ARTERY W/O ANG PCTRS Status: Chronic Qualifiers: Coronary Disease-Associated Artery/Lesion type: [place] artery [place] vs. transplanted heart: [place] heart Associated angina: without angina Qualified Code(s): I25.10 - Atherosclerotic heart disease of [place] coronary artery without angina pectoris (5) Carotid stenosis, left Code(s): I65.22 - OCCLUSION AND STENOSIS OF LEFT CAROTID ARTERY Status: Chronic Comment: s/p angioplasty, stable (6) HLD (hyperlipidemia) Code(s): E78.5 - HYPERLIPIDEMIA, UNSPECIFIED Status: Chronic Comment: Lipitor 40mg HS (7) HTN (hypertension) Code(s): I10 - ESSENTIAL (PRIMARY) HYPERTENSION Status: Chronic Qualifiers: Hypertension type: essential hypertension Qualified Code(s): I10 - Essential (primary) hypertension Comment: stable, (8) PAD (peripheral artery disease) Code(s): I73.9 - PERIPHERAL VASCULAR DISEASE, UNSPECIFIED Status: Chronic Comment: s/p angioplasty in past, stable - Plan cont current plan of care, plan discussed w/ family, psychologist social, respiratory therapy * .
[2018-02-15] MEDS: Cefdinir 300 MG CAP PO SCH (21:05)
[2018-02-16] MEDS: Albumin 25% 25 GM/100 ML BOT IVPB SCH ×4 (00:48→18:15)
[2018-02-16] MEDS: Sodium Chloride 0.9% 1,000 ML IV SCH ×2 (01:02→12:57)
[2018-02-16 05:47] LABS: ALT (SGPT) 42 U/L (8-55); AST (SGOT) 59 U/L (5-34); Albumin 3.1 g/dL (3.4-4.8); Alkaline Phosphatase 177 U/L (40-150); Anion Gap 13 mmol/L (10-20); BUN (Urea Nitrogen) 49 mg/dL (8.4-25.7); Bilirubin, Total 0.6 mg/dL (0.2-1.2); Calc. Creatinine Clearance 36 mL/min (70-130); Carbon Dioxide 23 mmol/L (23-31); Chloride 108 mmol/L (98-107); Estimated GFR-MDRD 29; Glucose 81 mg/dL (80-115); Protein, Total 5.1 g/dL (5.8-8.1); Sodium 141 mmol/L (136-145)
[2018-02-16 05:54] LABS: #Eosinphils 0.2 thou/uL (0.0-0.7); #Lymphocytes 0.3 thou/uL (1.20-3.40); #Neutrophils 8.2 thou/uL (1.40-6.50); %Basophils 0.2 % (0.0-1.0); %Eosinophils 2.4 % (0.0-10.0); %Lymphocytes 3.5 % (21.0-51.0); %Monocytes 9.8 % (0.0-10.0); %Neutrophils 84.1 % (42.0-75.0); Hemoglobin 7.5 g/dL (14.0-18.0); Mean Corpuscular HGB CONC 33.6 g/dL (32.0-36.0); Mean Corpuscular Hemoglobin 30.9 pg (27.0-31.0); Mean Corpuscular Volume 92.2 fL (78.0-98.0); Mean Platelet Volume 7.3 fL (7.4-10.4); Platelet Count 187 thou/uL (130-400); RBC Distribution Width 11.6 % (11.5-14.5); Red Blood Cell (RBC) Count 2.42 mill/uL (4.70-6.10); White Blood Cell (WBC) Count 9.7 thou/uL (4.8-10.8)
[2018-02-16 05:57] LABS: Calcium 13.2 mg/dL (7.8-10.44); Magnesium 0.9 mg/dL (1.6-2.6)
[2018-02-16] MEDS ORDERED: Magnesium Sulfate 2 GM, Admixture Fee 1 EACH in Sodium Chloride 0.9% 100 ML IVPB SCH (08:15)
--- NOTE | 2018-02-16 08:58 | PRG ---
DATE OF SERVICE: 02/16/2018 SUBJECTIVE: Mr. Villalobos is a 67-year-old white male who has history of tonsillar carcinoma, status pos t radiation therapy, status post chemotherapy and was seen for his acute kidney injury. He was also noted to be significantly hypercalcemic. Initially volume repletion was given as well as calcitonin. Some improvement of the calcium was noted. Yesterday we initiated Zometa at 3 mg IV x1 dose. Valdivia pinky, this morning, calcium still remains unimproved. It is actually a little higher at 13.2 and yest erday this was 12.9. In addition, renal function is worsening. The patient was also complaining of some mild shortness of breath. For this reason, we will disconti nue the IV fluid with this patient. A repeat chest x-ray has been done. PHYSICAL EXAMINATION: VITAL SIGNS: Blood pressure 156/79, heart rate 100, respiratory rate 24, temperature 99.5, pulse ox 93%. GENERAL: Noted to be awake, supine, comfortable, not in overt distress SKIN: Adequate turgor. HEENT: Slightly pale conjunctivae, anicteric sclerae. NECK: No neck mass, no carotid bruits, no JVD. CHEST: No deformities. LUNGS: Decreased breath sounds. HEART: Normal sinus rhythm. No murmur, no gallops, no rubs. ABDOMEN: Globular, soft, nontender. EXTREMITIES: Trace edema. MEDICATIONS: 02/16/2018 - Reviewed. LABORATORY DATA: 02/16/2018 - Sodium 141, potassium 3, chloride 108, carbon dioxide 23, BUN 49, crea tinine 2.26, GFR 29 mL per minute, glucose 81, calcium 13.2, AST is 59, ALT 42, albumin 3.1. Chest x-ray currently pending. Pleural fluid cytology pending. ASSESSMENT AND PLAN: 1. Acute kidney injury - unimproved renal function in spite of aggressive volume repletion. We felt that this also was aggravated by his hypercalcemia. Due to complaints of shortness of breath and de creased urine output we will place the patient's IV fluid to Hep-Lock. There may be a superimposed a cute tubular necrosis with this patient. I reviewed the renal ultrasound a few days ago and there is no evidence of obstruction. Continue supportive care. He is currently stage 4 chronic renal failur e. 2. Anemia; p.r.n. blood transfusion. 3. Hypercalcemia - unimproved. Please note he is status post calcitonin. He was given Zometa 3 mg IV x1 dose yesterday. 4. Pleural effusion - currently awaiting cytology. The concern with this patient is with a history of cancer, hypercalcemia that he may have underlying metastatic disease. Overall, prognosis remains guarded. Recheck base met and CBC in a.m.
[2018-02-16] MEDS: Heparin 5,000 UNITS/ML VIAL SC SCH ×2 (09:21→20:47)
[2018-02-16] MEDS: Potassium Chloride 20 MEQ in Premix Bag 1 BAG IVPB SCH ×2 (09:24→12:56)
[2018-02-16] MEDS: Cefdinir 300 MG CAP PO SCH ×2 (09:25→20:46)
[2018-02-16] MEDS: Carvedilol 6.25 MG TAB PO SCH ×2 (09:25→18:14)
[2018-02-16] MEDS: Acetaminophen 500 MG TAB PO PRN (09:25)
[2018-02-16] MEDS: Polyethylene Glycol 3350 17 GM Packet PO SCH ×2 (09:25→20:46)
[2018-02-16] MEDS: Folic Acid 1 MG TAB PO SCH ×2 (09:25→20:47)
[2018-02-16] MEDS: Senokot S 8.6-50 MG TAB PO SCH ×2 (09:25→20:46)
[2018-02-16] MEDS: Famotidine 20 MG TAB PO SCH (09:25)
--- NOTE | 2018-02-16 10:06 | RAD ---
CHEST ONE VIEW: History: Dyspnea. Pleural fluid. Comparison: 02-13-18 FINDINGS: Cardiac silhouette is magnified and more obscured on the right by increasing right pleural fluid and basilar atelectasis. Pulmonary vasculature is more engorged. Mediastinum remains midline. No evidence of pneumothorax. IMPRESSION: Worsening pulmonary vascular congestion and right pleural fluid. POS: [facility]
--- NOTE | 2018-02-16 10:41 | PRG ---
DATE OF SERVICE: 02/16/2018 This morning he is better, less short of breath, less encephalopathic. PHYSICAL EXAMINATION: VITAL SIGNS: Sats are 90% on room air, blood pressure is 156/79, temperature 99, respiration 24. CHEST: Chest reveals decreased breath sounds in the right lung. Left lung unremarkable. CARDIAC: Normal S1, S2, no gallops. ABDOMEN: Soft, no masses. LABORATORY DATA: Creatinine 2.6. His calcium is 13.2, H&H is 7 and 23. IMPRESSION: 1. Right pleural effusion, exudate. 2. Hypercalcemia. 3. Renal failure. PLAN: Awaiting cytology results. Pleural effusion appears to be larger. If cytology is negative, c onsider thoracoscopy and pleural biopsy. We will follow.
[2018-02-16] MEDS ORDERED: Furosemide 40 MG/4 ML VIAL SLOW IVP SCH (11:30)
--- NOTE | 2018-02-16 14:04 | RAD ---
MODIFIED BARIUM SWALLOW WITH SPEECH THERPIST: Date: 01/27/18 HISTORY: 67-year-old male with history of unspecified dysphagia with feeding difficulties, with concern for as piration. FLUOROSCOPY TIME: 3.7 minutes with a dose of 1.276 Gy*cm^2. TECHNIQUE/FINDINGS: Patient was given numerous consistencies in the upright position. No evidence for aspiration. IMPRESSION: No evidence for aspiration. Please see speech therapy report for additional findings and recommendati ons. POS: [facility]
--- NOTE | 2018-02-16 15:09 | PDOC.PN ---
- Subjective Encounter Start Date: 02/16/18 Encounter Start Time: 15:08 Subjective: feels poorly,eating minimal.drinking ensure though -: weak and somnolent.care discussed w & sister at bedside - Objective Resuscitation Status: Resuscitation Status FULL:Full Resuscitation MAR Reviewed: Yes Vital Signs & Weight: Vital Signs (12 hours) Temp Pulse Pulse Pulse Resp BP BP 02/16/18 14:17 99 101 H 196/89 H 02/16/18 09:25 156/79 H 02/16/18 07:15 99.5 F 100 24 H 02/16/18 07:05 99.5 F 100 24 H 02/16/18 06:04 98.7 F 02/16/18 04:32 98.4 F 99 19 BP BP Pulse Ox 02/16/18 14:17 189/91 H 02/16/18 09:25 02/16/18 07:15 93 L 02/16/18 07:05 156/79 H 93 L 02/16/18 06:04 02/16/18 04:32 168/81 H 92 L Weight Admit Weight 179 lb 6.4 oz Weight 180 lb 9 oz I&O: 02/15/18 02/16/18 02/17/18 06:59 06:59 06:59 Intake Total 2400 1300 Output Total 750 750 Balance 1650 550 Result Diagrams: 02/16/18 04:44 02/16/18 04:44 Additional Labs: Microbiology 02/13/18 12:13 Pleural fluid Acid Fast Bacilli Smear - Final 02/12/18 17:17 Urine voided Urine Culture - Final NO GROWTH AT 36 HOURS 02/13/18 12:13 Pleural fluid Body Fluid Culture - Preliminary 02/12/18 17:52 Venous blood - Right Foot Blood Culture - Preliminary NO GROWTH AT 48 HOURS 02/12/18 17:38 Venous blood - Left Arm Blood Culture - Preliminary NO GROWTH AT 48 HOURS Laboratory Tests 02/12/18 02/12/18 02/12/18 16:19 16:19 22:06 Hgb 10.5 L Calcium 15.9 H* 14.9 H* AST 92 H ALT 86 H 02/13/18 02/13/18 02/14/18 04:24 11:16 04:39 Hgb Calcium 14.8 H* 14.0 H* 13.0 H* AST ALT 02/14/18 02/15/18 02/16/18 04:39 10:00 04:44 Hgb 8.7 L Calcium 12.9 H* 13.2 H* AST 59 H ALT 42 02/16/18 04:44 Hgb 7.5 L Calcium AST ALT labs reviewed Laboratory Tests 02/12/18 02/13/18 02/13/18 22:06 04:24 11:15 25-OH Vitamin D Total 34.3 38.0 TSH 3rd Generation 0.8303 PTH Intact 8.2 L Radiology Reviewed by me: Yes (CXR-pulm vascular congestion,Pleural effusion) Dx/Plan (1) LIZETH (acute kidney injury) Code(s): N17.9 - ACUTE KIDNEY FAILURE, UNSPECIFIED Status: Acute Comment: worsening (2) Hypercalcemia Code(s): E83.52 - HYPERCALCEMIA Status: Acute Comment: s/p calcitonin,IVF and Zometa X1.Discussed w Dr. guerra.PTH low. PTHrP pending.Vit D levels Normal (3) Hypomagnesemia Code(s): E83.42 - HYPOMAGNESEMIA Status: Acute (4) Hypokalemia Code(s): E87.6 - HYPOKALEMIA Status: Acute (5) Pleural effusion Code(s): J90 - PLEURAL EFFUSION, NOT ELSEWHERE CLASSIFIED Status: Acute Comment: s/p R Thoracentesis.Cx negative so far (6) History of malignant neoplasm of tonsil Code(s): Z85.818 - PRSNL HX OF MALIG NEOPLM OF SITE OF LIP, ORAL CAV, & PHARYNX Status: Chronic Comment: s/p Chemo and XRT ,finished in 06/2017. (7) Fever Code(s): R50.9 - FEVER, UNSPECIFIED Status: Acute Qualifiers: Fever type: unspecified Qualified Code(s): R50.9 - Fever, unspecified (8) S/P CABG x 3 Code(s): Z95.1 - PRESENCE OF AORTOCORONARY BYPASS GRAFT Status: Chronic (9) HLD (hyperlipidemia) Code(s): E78.5 - HYPERLIPIDEMIA, UNSPECIFIED Status: Chronic Comment: Lipitor 40mg HS (10) HTN (hypertension) Code(s): I10 - ESSENTIAL (PRIMARY) HYPERTENSION Status: Chronic Qualifiers: Hypertension type: essential hypertension Qualified Code(s): I10 - Essential (primary) hypertension Comment: stable, (11) PAD (peripheral artery disease) Code(s): I73.9 - PERIPHERAL VASCULAR DISEASE, UNSPECIFIED Status: Chronic Comment: s/p angioplasty in past, stable (12) Chronic diastolic CHF (congestive heart failure) Code(s): I50.32 - CHRONIC DIASTOLIC (CONGESTIVE) HEART FAILURE Status: Chronic - Plan plan discussed w/ family, continue antibiotics, PT/OT, respiratory therapy, incentive spirometry, out of bed/ambulate, DVT proph w/SCDs DC IVF given pulm edema. one dose lasix.ECHO shows esposito dysfunction. -: Omnicef added.repeat Blood and urine Cx.previous neg so far -: may need repeat thoracentesis for palliative reasons.follow Cx/pathology -: BP uncontrolled.Lisinopril held due to LIZETH.start Hydralazine & titrate -: am labs. NM bone scan today to r/o mets. * . poor prognosis Review of Systems - Review of Systems Other: can not be obtained reliably due to encephalopthy - Medications/Allergies Allergies/Adverse Reactions: Allergies Allergy/AdvReac Type Severity Reaction Status Date / Time No Known Allergies Allergy Verified 02/12/18 20:47 Medications: Current Medications Acetaminophen (Tylenol) 1,000 mg PO Q6H PRN PRN Reason: Headache/Fever or Pain Last Admin: 02/16/18 09:25 Dose: 1,000 mg Al Hydroxide/Mg Hydroxide (Maalox) 30 ml PO Q6H PRN PRN Reason: Heartburn or Indigestion Albumin Human (Albumin 25%) 25 gm IVPB Q6HR [facility] Stop: 02/18/18 12:01 Last Admin: 02/16/18 12:56 Dose: 25 gm Aspirin (Aspirin Chewable) 81 mg PO DAILY [facility] Last Admin: 02/16/18 09:25 Dose: 81 mg Bisacodyl (Dulcolax) 10 mg MS Q24H PRN PRN Reason: Constipation Carvedilol (Coreg) 6.25 mg PO BID-[facility] Last Admin: 02/16/18 09:25 Dose: 6.25 mg Cefdinir (Omnicef) 300 mg PO BID [facility] Last Admin: 02/16/18 09:25 Dose: 300 mg Famotidine (Pepcid) 20 mg PO DAILY [facility] Last Admin: 02/16/18 09:25 Dose: 20 mg Folic Acid (Folvite) 1 mg PO BID [facility] Last Admin: 02/16/18 09:25 Dose: 1 mg Heparin Sodium (Porcine) (Heparin) 5,000 units SC BID [facility] Last Admin: 02/16/18 09:21 Dose: Not Given Hydralazine HCl (Apresoline) 10 mg SLOW IVP Q4H PRN PRN Reason: SBP Greater Than 180 Sodium Chloride (Normal Saline 0.9%) 1,000 mls @ 100 mls/hr IV .Q10H [facility] Last Admin: 02/16/18 12:57 Dose: Not Given Nitroglycerin (Nitrostat) 0.4 mg PO Q5MIN PRN PRN Reason: Chest Pain Ondansetron HCl (Zofran Odt) 4 mg PO Q6H PRN PRN Reason: Nausea/Vomiting Ondansetron HCl (Zofran) 4 mg IVP Q6H PRN PRN Reason: Nausea/Vomiting Polyethylene Glycol (Miralax) 17 gm PO BID [facility] Last Admin: 02/16/18 09:25 Dose: 17 gm Senna/Docusate Sodium (Senokot S) 1 tab PO BID [facility] Last Admin: 02/16/18 09:25 Dose: 1 tab Sodium Chloride (Flush - Normal Saline) 10 ml IVF Q12HR [facility] Last Admin: 02/16/18 09:26 Dose: Not Given Sodium Chloride (Flush - Normal Saline) 10 ml IVF PRN PRN PRN Reason: Saline Flush
[2018-02-16] MEDS ORDERED: hydrALAZINE 25 MG TAB PO SCH (15:30)
[2018-02-16 16:30] LABS: Bilirubin Negative (Negative); Blood, Urine Trace (Negative); Clarity CLEAR (Clear); Glucose, Urine (Dipstick) Negative (Negative); Leukocyte Negative (Negative); Nitrite Negative (Negative); Protein, Urine (Dipstick) Negative (Neg-Trace); Specific Gravity, Urine 1.008 (1.002-1.036); Urobilinogen 0.2 mg/dL (0.2-1.0); pH, Urine 6.5 (5.0-9.0)
[2018-02-16 16:33] LABS: Bacteria/HPF None Seen HPF (None Seen); Hyaline Casts/LPF 0-3 HYALINE CAST LPF (0-3 Hyaline); Pathc Cast-AUWi Flag 0.29 (0-2.49); Squamous Epithelial 0-3 HPF (0-3); WBC/HPF 0-3 HPF (0-3)
[2018-02-16 16:34] LABS: Yeast-AUWi Flag 92.4 (0-25.0)
[2018-02-16 16:42] LABS: RBC/HPF 0-3 HPF (0-3)
[2018-02-16 16:43] LABS: Crystals/HPF RARE AMORPH URATES HPF (Negative); Yeast-All Forms None Seen HPF (None Seen)
[2018-02-16] MEDS: hydrALAZINE 25 MG TAB PO SCH (20:46)
[2018-02-17] MEDS: Albumin 25% 25 GM/100 ML BOT IVPB SCH ×3 (00:03→11:24)
[2018-02-17 05:51] LABS: Band 10 % (5-11); Eosinophils 2 % (0-10); Hemoglobin 8.8 g/dL (14.0-18.0); Lymphocytes 4 % (21-51); MDiff Complete? YES; Mean Corpuscular HGB CONC 34.6 g/dL (32.0-36.0); Mean Corpuscular Volume 89.7 fL (78.0-98.0); Mean Platelet Volume 6.7 fL (7.4-10.4); Metamyelocyte 1 % (0-0); Monocytes 5 % (0-10); Neutrophil 78 % (42-75); PLT Morphology Comment Appears Adequate; Platelet Count 186 thou/uL (130-400); RBC Distribution Width 12.2 % (11.5-14.5); Red Blood Cell (RBC) Count 2.82 mill/uL (4.70-6.10); White Blood Cell (WBC) Count 12.6 thou/uL (4.8-10.8)
[2018-02-17 05:55] LABS: Anion Gap 15 mmol/L (10-20); BUN (Urea Nitrogen) 49 mg/dL (8.4-25.7); Calc. Creatinine Clearance 36 mL/min (70-130); Carbon Dioxide 26 mmol/L (23-31); Chloride 105 mmol/L (98-107); Estimated GFR-MDRD 29; Glucose 96 mg/dL (80-115); Sodium 143 mmol/L (136-145)
[2018-02-17 05:57] LABS: Calcium 13.1 mg/dL (7.8-10.44)
[2018-02-17] MEDS: Carvedilol 6.25 MG TAB PO SCH ×2 (08:59→17:13)
[2018-02-17] MEDS: Famotidine 20 MG TAB PO SCH (08:59)
[2018-02-17] MEDS: Heparin 5,000 UNITS/ML VIAL SC SCH ×2 (08:59→20:44)
[2018-02-17] MEDS: hydrALAZINE 25 MG TAB PO SCH ×2 (08:59→21:00)
[2018-02-17] MEDS: Senokot S 8.6-50 MG TAB PO SCH ×2 (08:59→20:48)
[2018-02-17] MEDS: Folic Acid 1 MG TAB PO SCH ×2 (08:59→20:44)
[2018-02-17] MEDS: Cefdinir 300 MG CAP PO SCH (08:59)
[2018-02-17] MEDS: Polyethylene Glycol 3350 17 GM Packet PO SCH ×2 (09:00→20:46)
--- NOTE | 2018-02-17 10:00 | PRG ---
DATE OF SERVICE: 02/17/2018 This morning he remains encephalopathic. PHYSICAL EXAMINATION: VITAL SIGNS: Blood pressure 178/92, pulse 114, temperature 98. Pleural effusion is now showing squamous cell carcinoma. Oncology feels this is a head and neck meta static disease. His calcium is ____. He started getting Zometa. CHEST: Chest reveals decreased breath sounds, no wheezing. CARDIAC: Normal S1-S2. No gallops. ABDOMEN: Soft, no masses. IMPRESSION: 1. Recurrent right pleural effusion. 2. Metastatic squamous cell carcinoma. 3. Renal failure. 4. Hypercalcemia. PLAN: He may be redosed with Zometa as per Oncology. Otherwise, we are going to address his pleural effusion. I will follow.
[2018-02-17] MEDS: Potassium Chloride 20 MEQ in Premix Bag 1 BAG IVPB SCH ×2 (11:00→13:49)
[2018-02-17] MEDS ORDERED: Lorazepam 2 MG/ML VIAL SLOW IVP SCH (14:00)
[2018-02-17] MEDS ORDERED: Furosemide 40 MG/4 ML VIAL SLOW IVP SCH (14:45)
[2018-02-17] MEDS ORDERED: Propofol 1,000 MG/100 ML VIAL IV ONE (15:04)
[2018-02-17] MEDS ORDERED: Labetalol HCl 100 MG/20 ML VIAL SLOW IVP PRN (15:10)
[2018-02-17] MEDS ORDERED: Ventilator Sedation Protocol 1 EACH FS SCH (15:15)
[2018-02-17 15:28] LABS: Actual Bicarbonate (HCO3a) 23.7 mEq/L (22-28); Base Excess (BEa) 0.4 mEq/L (-2.0 to +3.0); CO2 Tension 33.3 mmHg (35.0-45.0); Hemoglobin (Hb) 9.1 g/dL (14.0-18.0); O2 Tension (PaO2) 67.4 mmHg (> 80.0); pH, Arterial 7.47 (7.35-7.45)
[2018-02-17 15:29] LABS: Calcium, Ionized 1.5 mmol/L (1.12-1.30); Puncture Site RRA
[2018-02-17 15:30] LABS: ALV-art Gradient 247.475 (0-20)
[2018-02-17] MEDS ORDERED: Propofol 1,000 MG/100 ML VIAL IV PRN (15:40)
[2018-02-17] MEDS ORDERED: Fentanyl CADD 250 ML IVPB SCH (15:40)
[2018-02-17] MEDS ORDERED: fentaNYL Citrate/PF 2,000 MCG in Sodium Chloride 0.9% 60 ML IV SCH (15:40)
[2018-02-17] MEDS ORDERED: Fentanyl BOLUS 250 ML IVPB PRN (15:40)
[2018-02-17] MEDS ORDERED: Propofol BOLUS 1,000 MG/100 ML VIAL IV PRN (15:40)
[2018-02-17] MEDS ORDERED: DISCONTINUE PREVIOUS NARCOTIC PAIN MEDICATIONS AND BENZODIAZEPINES FS SCH (15:40)
--- NOTE | 2018-02-17 16:20 | PDOC.PN ---
- Subjective Encounter Start Date: 02/17/18 Encounter Start Time: 16:17 (late entry/seen before code blue) Subjective: seen & examined earlier & was awake & alert -: had a code Blue later for dyspnea & hypoxia -: aspirated on water and become SOB.Intubated & transfered to CCU now - Objective Resuscitation Status: Resuscitation Status FULL:Full Resuscitation MAR Reviewed: Yes Vital Signs & Weight: Vital Signs (12 hours) Temp Pulse Resp BP BP Pulse Ox 02/17/18 14:59 120 H 02/17/18 12:36 97.6 F 106 H 24 H 167/70 H 91 L 02/17/18 08:59 114 H 178/92 H 02/17/18 08:54 98.3 F 114 H 24 H 178/92 H 92 L 02/17/18 08:30 98.4 F 114 H 22 H 92 L 02/17/18 05:02 117 H Weight Admit Weight 179 lb 6.4 oz Weight 181 lb 1.6 oz I&O: 02/16/18 02/17/18 02/18/18 06:59 06:59 06:59 Intake Total 1300 2620 Output Total 750 3500 Balance 550 -880 Result Diagrams: 02/17/18 05:10 02/17/18 05:10 Additional Labs: Microbiology 02/13/18 12:13 Pleural fluid Acid Fast Bacilli Smear - Final 02/12/18 17:17 Urine voided Urine Culture - Final NO GROWTH AT 36 HOURS 02/16/18 14:55 Urine fleming catheter Urine Culture - Preliminary NO GROWTH AT 24 HOURS 02/16/18 11:47 Venous blood - Left Arm Blood Culture - Preliminary Specimen has been received and culture in progress. No Growth to date. 02/16/18 11:40 Venous blood - Right Arm Blood Culture - Preliminary Specimen has been received and culture in progress. No Growth to date. 02/13/18 12:13 Pleural fluid Body Fluid Culture - Preliminary 02/12/18 17:52 Venous blood - Right Foot Blood Culture - Preliminary NO GROWTH AT 48 HOURS 02/12/18 17:38 Venous blood - Left Arm Blood Culture - Preliminary NO GROWTH AT 48 HOURS labs reviewed Phys Exam - Physical Examination Constitutional: NAD HEENT: PERRLA, sclera anicteric, oral pharynx no lesions dry mucosa Neck: no nodes, no JVD, supple, full ROM Respiratory: no wheezing, no rales, no rhonchi, clear to auscultation bilateral Cardiovascular: RRR, no significant murmur Gastrointestinal: soft, non-tender, no distention, positive bowel sounds Musculoskeletal: no edema, pulses present Neurological: non-focal, normal sensation, moves all 4 limbs Psychiatric: normal affect, A&O x 3 Skin: no rash Dx/Plan (1) Acute respiratory failure with hypoxia Code(s): J96.01 - ACUTE RESPIRATORY FAILURE WITH HYPOXIA Status: Acute (2) Aspiration pneumonia due to regurgitated food Code(s): J69.0 - PNEUMONITIS DUE TO INHALATION OF FOOD AND VOMIT Status: Acute (3) LIZETH (acute kidney injury) Code(s): N17.9 - ACUTE KIDNEY FAILURE, UNSPECIFIED Status: Acute Comment: worsening (4) Hypercalcemia Code(s): E83.52 - HYPERCALCEMIA Status: Acute Comment: s/p calcitonin,IVF and Zometa X1.Discussed w Dr. guerra.PTH low. PTHrP pending.Vit D levels Normal (5) Hypomagnesemia Code(s): E83.42 - HYPOMAGNESEMIA Status: Acute (6) Hypokalemia Code(s): E87.6 - HYPOKALEMIA Status: Acute (7) Pleural effusion Code(s): J90 - PLEURAL EFFUSION, NOT ELSEWHERE CLASSIFIED Status: Acute Comment: s/p R Thoracentesis.Cx negative so far.Pathology +ve for Metastatic Cancer (8) History of malignant neoplasm of tonsil Code(s): Z85.818 - PRSNL HX OF MALIG NEOPLM OF SITE OF LIP, ORAL CAV, & PHARYNX Status: Chronic Comment: s/p Chemo and XRT ,finished in 06/2017. (9) Fever Code(s): R50.9 - FEVER, UNSPECIFIED Status: Acute Qualifiers: Fever type: unspecified Qualified Code(s): R50.9 - Fever, unspecified (10) S/P CABG x 3 Code(s): Z95.1 - PRESENCE OF AORTOCORONARY BYPASS GRAFT Status: Chronic (11) HLD (hyperlipidemia) Code(s): E78.5 - HYPERLIPIDEMIA, UNSPECIFIED Status: Chronic Comment: Lipitor 40mg HS (12) HTN (hypertension) Code(s): I10 - ESSENTIAL (PRIMARY) HYPERTENSION Status: Chronic Qualifiers: Hypertension type: essential hypertension Qualified Code(s): I10 - Essential (primary) hypertension Comment: stable, (13) PAD (peripheral artery disease) Code(s): I73.9 - PERIPHERAL VASCULAR DISEASE, UNSPECIFIED Status: Chronic Comment: s/p angioplasty in past, stable (14) Chronic diastolic CHF (congestive heart failure) Code(s): I50.32 - CHRONIC DIASTOLIC (CONGESTIVE) HEART FAILURE Status: Chronic - Plan plan discussed w/ family, continue antibiotics, PT/OT, respiratory therapy, incentive spirometry, DVT proph w/SCDs CCU trasnsfer. empiric IV ABx.plan discussed w family -: discussed w Oncology.may benefir from rx for mets. -: Renal Fx and Ca worse again . IVF on hold d/t fluid overload. -: replace Potassium & magnesium.recheck.CCU lyte protocol -: poor prognosis.. discussed with family.cont supportive care * . Review of Systems - Review of Systems Constitutional: weakness, malaise. negative: fever, chills, sweats, other Respiratory: Cough Cardiovascular: negative: chest pain, palpitations, orthopnea, paroxysmal nocturnal dyspnea, edema, light headedness, other Gastrointestinal: Nausea Other: can not be reliably obtained due to some somnolence - Medications/Allergies Allergies/Adverse Reactions: Allergies Allergy/AdvReac Type Severity Reaction Status Date / Time No Known Allergies Allergy Verified 02/12/18 20:47 Medications: Current Medications Acetaminophen (Tylenol) 1,000 mg PO Q6H PRN PRN Reason: Headache/Fever or Pain Last Admin: 02/16/18 09:25 Dose: 1,000 mg Al Hydroxide/Mg Hydroxide (Maalox) 30 ml PO Q6H PRN PRN Reason: Heartburn or Indigestion Albuterol/Ipratropium (Duoneb) 3 ml NEB [id number] [facility] Aspirin (Aspirin Chewable) 81 mg PO DAILY [facility] Last Admin: 02/17/18 08:59 Dose: 81 mg Bisacodyl (Dulcolax) 10 mg IN Q24H PRN PRN Reason: Constipation Carvedilol (Coreg) 6.25 mg PO BID-[facility] Last Admin: 02/17/18 08:59 Dose: 6.25 mg Famotidine (Pepcid) 20 mg PO DAILY [facility] Last Admin: 02/17/18 08:59 Dose: 20 mg Folic Acid (Folvite) 1 mg PO BID [facility] Last Admin: 02/17/18 08:59 Dose: 1 mg Furosemide (Lasix) 40 mg SLOW IVP NOW [facility] Stop: 02/17/18 16:45 Heparin Sodium (Porcine) (Heparin) 5,000 units SC BID [facility] Last Admin: 02/17/18 08:59 Dose: 5,000 units Hydralazine HCl (Apresoline) 10 mg SLOW IVP Q4H PRN PRN Reason: SBP Greater Than 180 Last Admin: 02/17/18 05:02 Dose: 10 mg Hydralazine HCl (Apresoline) 25 mg PO BID [facility] Last Admin: 02/17/18 08:59 Dose: 25 mg Sodium Chloride (1/2 Normal Saline) 1,000 mls @ 75 mls/hr IV .[id number] [facility] Ceftriaxone Sodium 1 gm/ (Sodium Chloride) 100 mls @ 200 mls/hr IVPB 1800 [facility] Fentanyl (Fentanyl Cadd) 250 mls @ 0 mls/hr IVPB INF [facility]; Titrate PRN Reason: Protocol Stop: 03/19/18 15:40 Fentanyl Citrate 2,000 mcg/ (Sodium Chloride) 100 mls @ 0 mls/hr IV INF [facility]; Per Protocol PRN Reason: Protocol Stop: 03/19/18 15:40 Fentanyl Citrate (Fentanyl Bolus) 250 mls @ 0 mls/hr IVPB PRN PRN; As Directed PRN Reason: Breakthrough pain/agitation Stop: 03/19/18 15:40 Magnesium Sulfate 2 gm/ Sodium (Chloride) 104 mls @ 100 mls/hr IVPB ONE [facility] Labetalol HCl (Normodyne) 10 mg SLOW IVP Q4H PRN PRN Reason: SBP Greater Than 180 Lorazepam (Ativan) 2 mg SLOW IVP Q1H PRN PRN Reason: Breakthrough agitation Stop: 03/19/18 15:40 Methylprednisolone Sodium Succinate (Solu-Medrol) 40 mg IVP BID [facility] Morphine Sulfate (Morphine Sulfate) 2 mg SLOW IVP Q1H PRN PRN Reason: BREAKTHROUGH PAIN/AGITATION Stop: 03/19/18 15:40 Nitroglycerin (Nitrostat) 0.4 mg PO Q5MIN PRN PRN Reason: Chest Pain Discontinue Previous Narcotic Pain Medications And Benzodiazepines 1 each FS .ONE [facility] Stop: 03/19/18 15:40 Ondansetron HCl (Zofran Odt) 4 mg PO Q6H PRN PRN Reason: Nausea/Vomiting Ondansetron HCl (Zofran) 4 mg IVP Q6H PRN PRN Reason: Nausea/Vomiting Polyethylene Glycol (Miralax) 17 gm PO BID [facility] Last Admin: 02/17/18 09:00 Dose: 17 gm Propofol (Diprivan) 1,000 mg IV INF PRN; Protocol PRN Reason: TO ACHIEVE GOAL RASS Stop: 03/19/18 15:40 Propofol (Diprivan Bolus) 20 mg IV Q5MIN PRN PRN Reason: BREAKTHROUGH AGITATION Stop: 03/19/18 15:40 Senna/Docusate Sodium (Senokot S) 1 tab PO BID [facility] Last Admin: 02/17/18 08:59 Dose: 1 tab Sodium Chloride (Flush - Normal Saline) 10 ml IVF Q12HR [facility] Last Admin: 02/17/18 09:00 Dose: 10 ml Sodium Chloride (Flush - Normal Saline) 10 ml IVF PRN PRN PRN Reason: Saline Flush
[2018-02-17] MEDS ORDERED: CCU Electrolyte Replacement 1 EACH FS ONE (16:31)
[2018-02-17] MEDS ORDERED: CCU ELECTROLYTE REPLACEMENT PROTOCOL FS PRN (16:39)
[2018-02-17] MEDS ORDERED: Potassium Chloride 20 MEQ TAB PO PRN (16:39)
[2018-02-17] MEDS ORDERED: Potassium Phosphate 15 MMOL in Sodium Chloride 0.9% 250 ML 250 ML IV PRN (16:39)
[2018-02-17] MEDS ORDERED: Potassium Chloride 40 MEQ in Premix Bag 1 BAG IVPB PRN (16:39)
[2018-02-17] MEDS ORDERED: Magnesium Oxide 400 MG TAB PO PRN ×2 (16:39)
[2018-02-17] MEDS ORDERED: Potassium Chloride 40 MEQ in Sodium Chloride 0.9% 250 ML 250 ML IVPB PRN (16:39)
[2018-02-17] MEDS ORDERED: Magnesium 2 GM/NS 0.9% 100 ML 2 GM in Premix Bag 1 BAG IVPB PRN (16:39)
[2018-02-17] MEDS ORDERED: Potassium Phosphate 9 MMOL in Sodium Chloride 0.9% 100 ML IVPB PRN (16:39)
[2018-02-17] MEDS ORDERED: Potassium Phosphate 12 MMOL in Sodium Chloride 0.9% 250 ML 250 ML IV PRN (16:39)
[2018-02-17] MEDS ORDERED: Magnesium Sulfate 2 GM in Sodium Chloride 0.9% 100 ML IVPB SCH (17:00)
--- NOTE | 2018-02-17 17:00 | RAD ---
FRONTAL RADIOGRAPH CHEST: 02/17/18 COMPARISON: 02/16/18 HISTORY: Congestive heart failure. FINDINGS: Endotracheal tube noted. Distal tip terminating in the region of the clavicular heads. Midline sterno laurel wires are present. There is stable prominence of the cardiac silhouette. No pneumothorax is evidence on either side. There is pulmonary vascular congestion with bilateral per ihilar interstitial prominence, right greater than left. There is right sided perihilar air space dis ease with persistent dense pleural and parenchymal opacity involving the inferior half of the right h emithorax. IMPRESSION: No significant interval change aside from interval intubation. POS: [facility]
--- NOTE | 2018-02-17 18:10 | PRG ---
DATE OF SERVICE: 02/17/2018 SUBJECTIVE: Mr. Villalobos is a 67-year-old white male, who was seen by the Renal Service for his acute k idney injury/hypercalcemia. He has been empirically volume repleted without significant improvement of the renal function. In addition, he has received calcitonin as well as Zometa. Calcium remains s till about the same. Early this morning, he developed acute respiratory failure. He was noted to diaz ve aspirated. He is now transferred to ICU currently intubated on ventilator support. OBJECTIVE: VITAL SIGNS: Blood pressure is 178/92, heart rate 85, respiratory rate 16, and pulse ox 96%. GENERAL: Sedated and intubated on ventilator support. SKIN: Adequate turgor. HEENT: Slightly pale conjunctivae, anicteric sclerae. NECK: No neck mass, no carotid bruits, no JVD. CHEST: No deformities. LUNGS: Decreased breath sounds. HEART: Normal sinus rhythm. No murmur, no gallops, no rubs. ABDOMEN: Globular, soft, nontender, no masses. EXTREMITIES: No edema, no deformities. IMAGING DATA: Chest x-ray of 02/17/2018, increased lung markings/CHF. LABORATORY DATA: On 02/17/2018 - white count 12.6, hemoglobin 8.8. Sodium 143, potassium 3, chlorid e 105, carbon dioxide 26, BUN 49, creatinine 2.29, calcium is 13.1. Pleural fluid cytology shows positive for malignancy cells consistent with metastatic carcinoma. ASSESSMENT AND PLAN: 1. Hypercalcemia, status post Zometa and calcitonin. We will evaluate tomorrow to see if he will ne ed further Zometa. 2. Acute respiratory failure secondary to possible aspiration/congestive heart failure. Currently i ntubated on ventilator support. We will give a 1 time dose of Lasix at 80 mg IV. We will then maint ain him on 40 mg IV q. 12 hours. 3. Anemia - Continue to observe. 4. Acute kidney injury. I suspect that this patient most likely have underlying acute tubular necro sis since he has been responsive with aggressive volume repletion. 5. Tonsillar carcinoma - most likely has metastatic lesion suggested by the cell cytology of the ple ural effusion. Oncology is following.
[2018-02-17] MEDS: cefTRIAXone\\ROCEPHIN 1 GM in Sodium Chloride 0.9% 100 ML IVPB SCH (18:30)
--- NOTE | 2018-02-17 18:35 | PRG ---
DATE OF SERVICE: 02/17/2018 Mr. Villalobos was drinking a liquid and coughed and suddenly developed respiratory distress. Code green and then a code blue was called. He still had spontaneous respirations, but was poorly responsive wi th an easily palpable pulse. I elected to intubate him. This was done successfully under direct vis ualization with a blade. Good color change was noted. Equal breath sounds and fogging of the endotr acheal tube was noted once he was mechanically ventilated. He never lost pulse during the entire patrica nt. His sats did drop in the 70s transiently. He has been transferred to Critical Care Unit for further care.
--- NOTE | 2018-02-17 20:31 | CON ---
DATE OF CONSULTATION: 02/17/2018 HISTORY OF PRESENT ILLNESS: A 67-year-old gentleman with a diagnosis of tonsillar cancer made about 1 year ago. He underwent radiation and chemotherapy. He was recently fatigued, felt to be dehydrate d and disoriented and brought to the hospital where found to have a calcium of 13 and a right pleural effusion. Thoracentesis of 2 liters revealed squamous cell carcinoma, malignancy in the pleural flu id. The fluid has now reaccumulated after about 5 days and the patient does have dyspnea. Mental st atus remains depressed due to elevated calcium levels. PAST HISTORY: Significant for coronary artery disease, having undergone coronary bypass grafting and he has also had previous left carotid endarterectomy and angioplasty of a right superficial femoral artery. He has had a remote hernia repair. MEDICATIONS: Prior to admission include Coreg, lisinopril, atorvastatin, and aspirin. SOCIAL HISTORY: The patient is a former smoker. PHYSICAL EXAMINATION: VITAL SIGNS: Heart rate 66, blood pressure 120/60. GENERAL: Ill-appearing gentleman, slightly pale and yellow tent to his skin. He is confused but shipley s make eye contact and try and speak, although not comprehending what he is trying to say. LUNGS: Anteriorly, has breath sounds bilaterally. CARDIAC: Regular rate and rhythm. No murmurs. ABDOMEN: Nontender. EXTREMITIES: No edema. Chest x-ray reviewed and has a right pleural effusion and I have discussed placement of a PleurX cath eter with the patient's family as well as discussed with Oncology and Pulmonary. Plan on this tomorr ow.
[2018-02-17] MEDS: methylPREDNISolone Sod Succ/PF 125 MG/2 ML VIAL IVP SCH (20:43)
[2018-02-17] MEDS: Lorazepam 2 MG/ML VIAL SLOW IVP PRN (20:43)
[2018-02-17] MEDS: Sodium Chloride 0.45% 1,000 ML IV SCH (21:50)
[2018-02-18] MEDS: Lorazepam 2 MG/ML VIAL SLOW IVP PRN (00:15)
[2018-02-18 05:32] LABS: Anion Gap 19 mmol/L (10-20); BUN (Urea Nitrogen) 55 mg/dL (8.4-25.7); Calc. Creatinine Clearance 34 mL/min (70-130); Calcium 11.6 mg/dL (7.8-10.44); Carbon Dioxide 21 mmol/L (23-31); Chloride 106 mmol/L (98-107); Estimated GFR-MDRD 27; Glucose 119 mg/dL (80-115); Potassium 3.4 mmol/L (3.5-5.1); Sodium 143 mmol/L (136-145)
[2018-02-18] MEDS: Furosemide 40 MG/4 ML VIAL SLOW IVP SCH ×2 (06:00→14:45)
[2018-02-18 06:14] LABS: Band 1 % (5-11); Hypochromia SLIGHT = 6-15 cells (100X) (0-5/hpf); MDiff Complete? YES; Mean Corpuscular HGB CONC 33.6 g/dL (32.0-36.0); Mean Corpuscular Hemoglobin 30.3 pg (27.0-31.0); Mean Platelet Volume 7.1 fL (7.4-10.4); Monocytes 5 % (0-10); Neutrophil 94 % (42-75); PLT Morphology Comment Appears Adequate; Platelet Count 169 thou/uL (130-400); RBC Distribution Width 12.5 % (11.5-14.5); Red Blood Cell (RBC) Count 2.63 mill/uL (4.70-6.10); White Blood Cell (WBC) Count 10.5 thou/uL (4.8-10.8)
[2018-02-18] MEDS ORDERED: Phenylephrine HCL 10 MG/ML VIAL ONE (06:27)
[2018-02-18] MEDS ORDERED: Fentanyl 250 MCG/5 ML VIAL ONE (06:27)
[2018-02-18 06:41] LABS: Actual Bicarbonate (HCO3a) 25.4 mEq/L (22-28); Base Excess (BEa) 2.3 mEq/L (-2.0 to +3.0); CO2 Tension 32.8 mmHg (35.0-45.0); Calcium, Ionized 1.4 mmol/L (1.12-1.30); Hemoglobin (Hb) 8.2 g/dL (14.0-18.0); O2 Tension (PaO2) 98.9 mmHg (> 80.0); Puncture Site RR; pH, Arterial 7.51 (7.35-7.45)
[2018-02-18] MEDS ORDERED: Lidocaine 1% (PF) 30 ML VIAL ONE (06:54)
--- NOTE | 2018-02-18 08:13 | PRG ---
DATE OF SERVICE: 02/17/2018 SUBJECTIVE: Griselda was scheduled to go for bone scan when apparently he choked on some water. Dr. Hinton works with me was there in room, intubated him and transferred over here. Stat chest x-ray shows unchanged x-ray right pleural effusion. Left lung is otherwise unremarkable. He is presently agitated on the vent. OBJECTIVE: VITAL SIGNS: Blood pressure 200/100, pulse 100, respiratory rate 20. He is being sedated with Diprivan. NEUROLOGIC: He is unresponsive. CHEST: Decreased breath sounds, bilateral rhonchi. CARDIAC:normal s1 and s2. ABDOMEN: Soft. LABORATORY DATA: His calcium was 13.1. Creatinine 2.29. White count 12,000, H &H 8 and 25. IMPRESSION: 1. Respiratory failure, status post aspiration. 2. Hypercalcemia. 3. Metastatic squamous cell carcinoma. PLAN: 1. The patient is scheduled for a bone scan, which probably will be hold today. 2. Scheduled for right pleural catheter to be inserted by tomorrow. This may also be on hold. I have started empiric steroids, neb treatments, supportive care. I will discuss with his . Prognosis is guarded. One-half hour critical care time. [facility]
--- NOTE | 2018-02-18 08:49 | RAD ---
CHEST ONE VIEW: HISTORY: Dyspnea. Followup. COMPARISON: 02/17/2018 FINDINGS: The cardiac silhouette is magnified and partially obscured by dense right basilar infiltrate and pleu ral fluid. The mediastinum remains midline with postoperative changes. Endotracheal catheter remain s in place. Nasogastric tube now descends to the stomach. No evidence of pneumothorax. IMPRESSION: 1. Interval placement, nasogastric tube. 2. Right basilar infiltrate, pleural fluid, and other findings are otherwise stable. POS: [facility]
--- NOTE | 2018-02-18 09:45 | PRG ---
DATE OF SERVICE: 02/18/2018 This morning, status post small bore chest tube on the right side for recurrent right pleural effusio n. Unfortunately, the x-ray now shows a left-sided pleural effusion. PHYSICAL EXAMINATION: VITAL SIGNS: Pulse is 60, blood pressure is 140/77, sats are 96% on room air, respiration rate 18. His has made him a DNR. More than likely he has got metastatic disease. NEURO: Neurologically he is sedated. CHEST: Chest reveals decreased breath sounds, no wheezing. CARDIAC: Normal S1, S2. No gallops. ABDOMEN: Soft, no masses. LABORATORY: PO2 is 98, pCO2 of 32%, 5 on a rate of 14. His calcium has decreased to 9.6, glucose 11 9, creatinine 2.3. IMPRESSION: 1. Renal failure. 2. Respiratory failure. 3. Bilateral pleural effusion. 4. Metastatic squamous cell carcinoma. PLAN: Empiric antibiotics, neb treatments, supportive care, diuretics. We will start nutrition. He is a DNR. We will wean as tolerated. Comfort care. One-half hour critical care time.
--- NOTE | 2018-02-18 10:15 | OP ---
DATE OF PROCEDURE: 02/18/2018 PREOPERATIVE DIAGNOSIS: Malignant right effusion. POSTOPERATIVE DIAGNOSIS: Malignant right effusion. PROCEDURE: Right PleurX catheter. SURGEON: Aguila Bassett M.D. ANESTHESIA: 1% lidocaine with IV sedation. PROCEDURE: After prepping and draping the right anterior lateral chest, lidocaine was infiltrated an d a needle was inserted into the pleura, the anterior axillary line and clear fluid was obtained and the Angiocath advanced. A wire was placed, but would only advance about 4 inches in. Stopping the v entilation did not seem to help with this. Following this, the peel-away sheath was placed and then the PleurX catheter advanced through the PleurX sheath after it had been placed through its tunnel. 500 mL of clear fluid was then removed. Wounds were closed and dressing applied.
--- NOTE | 2018-02-18 10:22 | RAD ---
UPRIGHT CHEST ONE VIEW: History: 67-year-old male with history of respiratory insuffiency, right sided pleural catheter. FINDINGS: Post underlying sternotomy. Endotracheal tube in position. There is an NG tube in place with the tip extending into the region of the stomach. Right sided pleural catheter with some persistent parenchym al changes in the right lower lobe and right costophrenic angle blunting. There is some left sided va scular congestion and left sided pleural effusion. IMPRESSION: Placement of a right lower chest pleural catheter with some decrease in the amount of pleural density with some persistent prominent confluent parenchymal change in the right lower lobe and right costop hrenic angle blunting. Progressive left vascular congestion with some interstitial edema and pleural effusion changes. Continued short term follow up. POS: ANNE
[2018-02-18] MEDS: Carvedilol 6.25 MG TAB PO SCH ×2 (10:26→18:18)
[2018-02-18] MEDS: methylPREDNISolone Sod Succ/PF 125 MG/2 ML VIAL IVP SCH ×2 (10:27→20:25)
[2018-02-18] MEDS: Folic Acid 1 MG TAB PO SCH ×2 (10:27→20:25)
[2018-02-18] MEDS: Famotidine 20 MG TAB PO SCH (10:27)
[2018-02-18] MEDS: hydrALAZINE 25 MG TAB PO SCH ×2 (10:27→20:25)
[2018-02-18] MEDS: Heparin 5,000 UNITS/ML VIAL SC SCH ×2 (10:27→20:25)
[2018-02-18] MEDS: Polyethylene Glycol 3350 17 GM Packet PO SCH ×2 (10:28→19:51)
[2018-02-18] MEDS: Senokot S 8.6-50 MG TAB PO SCH ×2 (10:28→19:51)
[2018-02-18] MEDS: Sodium Chloride 0.45% 1,000 ML IV SCH (10:29)
--- NOTE | 2018-02-18 12:10 | PRG ---
DATE OF SERVICE: 02/18/2018 RENAL MEDICINE SUBJECTIVE: Mr. Villalobos is a 67-year-old white male who was seen for his hypercalcemia and acute kidne y injury. This patient most likely has a superimposed acute tubular necrosis. He remains ____ in sp ite of volume repletion. Yesterday, he went into acute respiratory failure from possible aspiration. He has recurrence of his pleural effusion and a chest tube has been placed by Dr. Bassett. His x-ray this morning has further worsened with development of a right pleural fluid and infiltrate. His hyp ercalcemia slightly improved. I have started him on diuretics yesterday. OBJECTIVE: VITAL SIGNS: Blood pressure is 130/57, heart rate is 71, respiratory rate 24, O2 sat is 98%. GENERAL: The patient is sedated, intubated, on ventilator support. SKIN: Adequate turgor. HEENT: He has slightly pale conjunctivae, anicteric sclerae. NECK: No neck mass, no carotid bruits, no JVD. CHEST: No deformities. Positive for chest tube. LUNGS: Decreased breath sounds. HEART: Normal sinus rhythm. No murmurs, no gallops, no rubs. ABDOMEN: Globular, soft, nontender, no masses. EXTREMITIES: No edema, no deformities. MEDICATIONS: Medications of 02/18/2018 reviewed. LABORATORY DATA: Laboratories of 02/18/2018; white count 8.5, hemoglobin 10. Sodium 143, potassium 3.4, chloride 106, carbon dioxide 21, BUN ____, creatinine 2.39, calcium is 11.6, glucose 119, magnes ium 2.0. ASSESSMENT AND PLAN: 1. Acute kidney injury - most likely from superimposed acute tubular necrosis. Continue supportive care, continue diuretics. 2. Congestive heart failure - IV Lasix 40 mg IV q.12 hours. 3. Hypercalcemia secondary to metastatic carcinoma, slightly improved calcium at 11.6. Patient is s tatus post Zometa and calcitonin treatment. 4. 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 Continue supportive care. Please note the patient's family has requested DNR. They might contemplat e hospice.
--- NOTE | 2018-02-18 14:24 | PDOC.PN ---
- Subjective Encounter Start Date: 02/18/18 Encounter Start Time: 14:22 Subjective: remains intubated.care discussed w sister at bedside.qs answered -: Changed to DNR per family wishes. -: s/p r Pleural catheter today.off of sedation - Objective Resuscitation Status: Resuscitation Status DNR:Do Not Resuscitate MAR Reviewed: Yes Vital Signs & Weight: Vital Signs (12 hours) Temp Pulse Resp BP Pulse Ox 02/18/18 14:04 70 119/53 L 02/18/18 14:00 21 H 02/18/18 12:00 96.5 F L 18 02/18/18 10:59 67 157/73 H 02/18/18 10:27 66 148/80 H 02/18/18 10:26 148/80 H 02/18/18 10:00 16 02/18/18 08:30 97.5 F L 63 18 96 02/18/18 07:14 66 129/61 02/18/18 07:00 97.5 F L 02/18/18 06:00 16 02/18/18 04:13 82 02/18/18 04:00 99.3 F 18 Weight Admit Weight 179 lb 7.3 oz Weight 180 lb 8.937 oz Most Recent Monitor Data Heart Rate from ECG 67 NIBP 119/53 NIBP BP-Mean 75 Respiration from ECG 18 SpO2 96 I&O: 02/17/18 02/18/18 02/19/18 06:59 06:59 06:59 Intake Total 2620 1138 120 Output Total 3500 900 1210 Balance -880 238 -1090 Result Diagrams: 02/18/18 04:56 02/18/18 04:56 Additional Labs: Microbiology 02/13/18 12:13 Pleural fluid Acid Fast Bacilli Smear - Final 02/12/18 17:52 Venous blood - Right Foot Blood Culture - Final NO GROWTH IN 5 DAYS 02/12/18 17:38 Venous blood - Left Arm Blood Culture - Final NO GROWTH IN 5 DAYS 02/12/18 17:17 Urine voided Urine Culture - Final NO GROWTH AT 36 HOURS 02/16/18 14:55 Urine fleming catheter Urine Culture - Preliminary NO GROWTH AT 24 HOURS 02/16/18 11:47 Venous blood - Left Arm Blood Culture - Preliminary Specimen has been received and culture in progress. No Growth to date. 02/16/18 11:40 Venous blood - Right Arm Blood Culture - Preliminary Specimen has been received and culture in progress. No Growth to date. 02/13/18 12:13 Pleural fluid Body Fluid Culture - Preliminary Laboratory Tests 02/12/18 02/12/18 02/13/18 16:19 22:06 04:24 Calcium 15.9 H* 14.9 H* 14.8 H* 02/13/18 02/14/18 02/15/18 11:16 04:39 10:00 Calcium 14.0 H* 13.0 H* 12.9 H* 02/16/18 02/17/18 02/18/18 04:44 05:10 04:56 Calcium 13.2 H* 13.1 H* 11.6 H labs reviewed Phys Exam - Physical Examination Constitutional: NAD HEENT: PERRLA, moist MMs, sclera anicteric, oral pharynx no lesions Neck: no nodes, no JVD, supple, full ROM Respiratory: no wheezing, no rales, no rhonchi reduced at bases Cardiovascular: RRR, no significant murmur Gastrointestinal: soft, non-tender, no distention, positive bowel sounds Musculoskeletal: no edema, pulses present Neurological: non-focal, normal sensation, moves all 4 limbs Psychiatric: normal affect, A&O x 3 Skin: no rash Dx/Plan (1) Acute respiratory failure with hypoxia Code(s): J96.01 - ACUTE RESPIRATORY FAILURE WITH HYPOXIA Status: Acute (2) Aspiration pneumonia due to regurgitated food Code(s): J69.0 - PNEUMONITIS DUE TO INHALATION OF FOOD AND VOMIT Status: Acute (3) LIZETH (acute kidney injury) Code(s): N17.9 - ACUTE KIDNEY FAILURE, UNSPECIFIED Status: Acute Comment: worsening (4) Hypercalcemia Code(s): E83.52 - HYPERCALCEMIA Status: Acute Comment: s/p calcitonin,IVF and Zometa X1.Discussed w Dr. guerra.PTH low. PTHrP pending.Vit D levels Normal (5) Hypomagnesemia Code(s): E83.42 - HYPOMAGNESEMIA Status: Acute (6) Hypokalemia Code(s): E87.6 - HYPOKALEMIA Status: Acute (7) Pleural effusion Code(s): J90 - PLEURAL EFFUSION, NOT ELSEWHERE CLASSIFIED Status: Acute Comment: s/p R Thoracentesis.Cx negative so far.Pathology +ve for Metastatic Cancer (8) History of malignant neoplasm of tonsil Code(s): Z85.818 - PRSNL HX OF MALIG NEOPLM OF SITE OF LIP, ORAL CAV, & PHARYNX Status: Chronic Comment: s/p Chemo and XRT ,finished in 06/2017. (9) Fever Code(s): R50.9 - FEVER, UNSPECIFIED Status: Acute Qualifiers: Fever type: unspecified Qualified Code(s): R50.9 - Fever, unspecified (10) S/P CABG x 3 Code(s): Z95.1 - PRESENCE OF AORTOCORONARY BYPASS GRAFT Status: Chronic (11) HLD (hyperlipidemia) Code(s): E78.5 - HYPERLIPIDEMIA, UNSPECIFIED Status: Chronic Comment: Lipitor 40mg HS (12) HTN (hypertension) Code(s): I10 - ESSENTIAL (PRIMARY) HYPERTENSION Status: Chronic Qualifiers: Hypertension type: essential hypertension Qualified Code(s): I10 - Essential (primary) hypertension Comment: stable, (13) PAD (peripheral artery disease) Code(s): I73.9 - PERIPHERAL VASCULAR DISEASE, UNSPECIFIED Status: Chronic Comment: s/p angioplasty in past, stable (14) Chronic diastolic CHF (congestive heart failure) Code(s): I50.32 - CHRONIC DIASTOLIC (CONGESTIVE) HEART FAILURE Status: Chronic - Plan plan discussed w/ family, DVT proph w/SCDs supportive car eat this point as prison prognosis seems poor -: cont lasix for now -: s/p R sided pleurX .now w Left pleural effusion -: cont empiric IV ABx for possible asp PNA. -: vent support.am labs * .calcium much better for now.monitor * renal Fx monitoring.avoid any nephrotoxins Review of Systems - Review of Systems Other: can not be obtained due to intubated ,sedated status - Medications/Allergies Allergies/Adverse Reactions: Allergies Allergy/AdvReac Type Severity Reaction Status Date / Time No Known Allergies Allergy Verified 02/12/18 20:47 Medications: Current Medications Acetaminophen (Tylenol) 1,000 mg PO Q6H PRN PRN Reason: Headache/Fever or Pain Last Admin: 02/16/18 09:25 Dose: 1,000 mg Al Hydroxide/Mg Hydroxide (Maalox) 30 ml PO Q6H PRN PRN Reason: Heartburn or Indigestion Albuterol/Ipratropium (Duoneb) 3 ml NEB [id number] [facility] Last Admin: 02/18/18 13:59 Dose: 3 ml Aspirin (Aspirin Chewable) 81 mg PO DAILY [facility] Last Admin: 02/18/18 10:26 Dose: 81 mg Bisacodyl (Dulcolax) 10 mg WV Q24H PRN PRN Reason: Constipation Carvedilol (Coreg) 6.25 mg PO BID-WM [facility] Last Admin: 02/18/18 10:26 Dose: 6.25 mg Famotidine (Pepcid) 20 mg PO DAILY [facility] Last Admin: 02/18/18 10:27 Dose: 20 mg Folic Acid (Folvite) 1 mg PO BID [facility] Last Admin: 02/18/18 10:27 Dose: 1 mg Furosemide (Lasix) 40 mg SLOW IVP 0600,1400 [facility] Last Admin: 02/18/18 06:00 Dose: 40 mg Heparin Sodium (Porcine) (Heparin) 5,000 units SC BID [facility] Last Admin: 02/18/18 10:27 Dose: 5,000 units Hydralazine HCl (Apresoline) 10 mg SLOW IVP Q4H PRN PRN Reason: SBP Greater Than 180 Last Admin: 02/17/18 05:02 Dose: 10 mg Hydralazine HCl (Apresoline) 25 mg PO BID [facility] Last Admin: 02/18/18 10:27 Dose: 25 mg Sodium Chloride (1/2 Normal Saline) 1,000 mls @ 75 mls/hr IV .[id number] [facility] Last Admin: 02/18/18 10:29 Dose: Not Given Ceftriaxone Sodium 1 gm/ (Sodium Chloride) 100 mls @ 200 mls/hr IVPB 1800 [facility] Last Admin: 02/17/18 18:30 Dose: 100 mls Fentanyl (Fentanyl Cadd) 250 mls @ 0 mls/hr IVPB INF [facility]; Titrate PRN Reason: Protocol Stop: 03/19/18 15:40 Fentanyl Citrate 2,000 mcg/ (Sodium Chloride) 100 mls @ 0 mls/hr IV INF [facility]; Per Protocol PRN Reason: Protocol Stop: 03/19/18 15:40 Fentanyl Citrate (Fentanyl Bolus) 250 mls @ 0 mls/hr IVPB PRN PRN; As Directed PRN Reason: Breakthrough pain/agitation Stop: 03/19/18 15:40 Potassium Chloride 40 meq/ (Sodium Chloride) 270 mls @ 135 mls/hr IVPB ASDIR PRN PRN Reason: FOR SERUM K+ 2.5 - 3.5 Potassium Chloride 40 meq/ (Device) 100 mls @ 50 mls/hr IVPB ASDIR PRN PRN Reason: FOR SERUM K+ 2.5 - 3.5 Magnesium Sulfate 1 gm/ Sodium (Chloride) 102 mls @ 102 mls/hr IV PRN PRN PRN Reason: MAG LEVEL 1.4 - 2.0 Magnesium Sulfate 2 gm/ Device 100 mls @ 100 mls/hr IVPB ASDIR PRN PRN Reason: MAGNESIUM < 1.4 Potassium Phosphate 9 mmol/ (Sodium Chloride) 103 mls @ 25.75 mls/hr IVPB ASDIR PRN PRN Reason: Phosphate 1.0-1.8 Potassium Phosphate 12 mmol/ (Sodium Chloride) 254 mls @ 63.5 mls/hr IV ASDIR PRN PRN Reason: Serum phosphate 0.5-0.9 Potassium Phosphate 15 mmol/ (Sodium Chloride) 255 mls @ 63.75 mls/hr IV ASDIR PRN PRN Reason: Serum Phos < 0.5 Labetalol HCl (Normodyne) 10 mg SLOW IVP Q4H PRN PRN Reason: SBP Greater Than 180 Lorazepam (Ativan) 2 mg SLOW IVP Q1H PRN PRN Reason: Breakthrough agitation Stop: 03/19/18 15:40 Last Admin: 02/18/18 00:15 Dose: 2 mg Magnesium Oxide (Magnesium Oxide) 400 mg PO BIDPRN PRN PRN Reason: FOR SERUM MAG 1.4 - 2.0 Magnesium Oxide (Magnesium Oxide) 800 mg PO PRN PRN PRN Reason: FOR SERUM MAG < 1.4 Methylprednisolone Sodium Succinate (Solu-Medrol) 40 mg IVP BID SHANTHI Last Admin: 02/18/18 10:27 Dose: 40 mg Miscellaneous Medication (Phos-Nak) 1 pkt PO TIDPRN PRN PRN Reason: FOR PHOS LEVEL 1.0 - 1.8 Miscellaneous Medication (Phos-Nak) 2 pkt PO TIDPRN PRN PRN Reason: FOR PHOS LEVEL 0.5 - 1.0 Morphine Sulfate (Morphine Sulfate) 2 mg SLOW IVP Q1H PRN PRN Reason: BREAKTHROUGH PAIN/AGITATION Stop: 03/19/18 15:40 Nitroglycerin (Nitrostat) 0.4 mg PO Q5MIN PRN PRN Reason: Chest Pain Discontinue Previous Narcotic Pain Medications And Benzodiazepines 1 each FS .ONE SHANTHI Stop: 03/19/18 15:40 Ccu Electrolyte (Replacement Protocol) 0 each FS PRN PRN PRN Reason: FOR ELECTROLYTE REPLACEMENT Ondansetron HCl (Zofran Odt) 4 mg PO Q6H PRN PRN Reason: Nausea/Vomiting Ondansetron HCl (Zofran) 4 mg IVP Q6H PRN PRN Reason: Nausea/Vomiting Polyethylene Glycol (Miralax) 17 gm PO BID [facility] Last Admin: 02/18/18 10:28 Dose: Not Given Potassium Chloride (K-Dur) 40 meq PO ASDIR PRN PRN Reason: FOR SERUM K+ 2.5 - 3.5 Potassium Chloride (Klor-Con) 40 meq PER TUBE ASDIR PRN PRN Reason: FOR SERUM K+ 2.5-3.5 Last Admin: 02/18/18 10:35 Dose: 40 meq Propofol (Diprivan) 1,000 mg IV INF PRN; Protocol PRN Reason: TO ACHIEVE GOAL RASS Stop: 03/19/18 15:40 Last Admin: 02/17/18 20:48 Dose: 1,000 mg Propofol (Diprivan Bolus) 20 mg IV Q5MIN PRN PRN Reason: BREAKTHROUGH AGITATION Stop: 03/19/18 15:40 Senna/Docusate Sodium (Senokot S) 1 tab PO BID [facility] Last Admin: 02/18/18 10:28 Dose: Not Given Sodium Chloride (Flush - Normal Saline) 10 ml IVF Q12HR [facility] Last Admin: 02/18/18 10:28 Dose: 10 ml Sodium Chloride (Flush - Normal Saline) 10 ml IVF PRN PRN PRN Reason: Saline Flush
[2018-02-18] MEDS: cefTRIAXone\\ROCEPHIN 1 GM in Sodium Chloride 0.9% 100 ML IVPB SCH (18:18)
[2018-02-19] MEDS: Furosemide 40 MG/4 ML VIAL SLOW IVP SCH ×2 (05:35→13:26)
[2018-02-19] MEDS: Sodium Chloride 0.45% 1,000 ML IV SCH ×2 (05:36→18:49)
[2018-02-19 05:49] LABS: Anion Gap 18 mmol/L (10-20); BUN (Urea Nitrogen) 68 mg/dL (8.4-25.7); Calc. Creatinine Clearance 34 mL/min (70-130); Calcium 9.9 mg/dL (7.8-10.44); Carbon Dioxide 22 mmol/L (23-31); Chloride 105 mmol/L (98-107); Estimated GFR-MDRD 27; Glucose 138 mg/dL (80-115); Magnesium 1.9 mg/dL (1.6-2.6); Potassium 3.2 mmol/L (3.5-5.1); Sodium 142 mmol/L (136-145)
[2018-02-19 06:04] LABS: Band 13 % (5-11); Hemoglobin 8.3 g/dL (14.0-18.0); Lymphocytes 7 % (21-51); MDiff Complete? YES; Mean Corpuscular HGB CONC 33.4 g/dL (32.0-36.0); Mean Corpuscular Hemoglobin 30.1 pg (27.0-31.0); Mean Platelet Volume 7.2 fL (7.4-10.4); Monocytes 5 % (0-10); Neutrophil 75 % (42-75); Platelet Count 194 thou/uL (130-400); RBC Distribution Width 12.4 % (11.5-14.5); Red Blood Cell (RBC) Count 2.75 mill/uL (4.70-6.10); White Blood Cell (WBC) Count 8.5 thou/uL (4.8-10.8)
[2018-02-19 06:57] LABS: Actual Bicarbonate (HCO3a) 23.7 mEq/L (22-28); Base Excess (BEa) 1.3 mEq/L (-2.0 to +3.0); CO2 Tension 29.2 mmHg (35.0-45.0); Calcium, Ionized 1.3 mmol/L (1.12-1.30); Hemoglobin (Hb) 8.3 g/dL (14.0-18.0); O2 Tension (PaO2) 80.2 mmHg (> 80.0); Puncture Site RB; pH, Arterial 7.53 (7.35-7.45)
[2018-02-19] MEDS ORDERED: DC Sedation Protocol FS ONE (07:55)
[2018-02-19] MEDS: Polyethylene Glycol 3350 17 GM Packet PO SCH ×2 (08:28→21:00)
[2018-02-19] MEDS: Senokot S 8.6-50 MG TAB PO SCH ×2 (08:28→20:59)
[2018-02-19] MEDS: Heparin 5,000 UNITS/ML VIAL SC SCH ×2 (09:23→20:58)
[2018-02-19] MEDS: methylPREDNISolone Sod Succ/PF 125 MG/2 ML VIAL IVP SCH ×2 (09:23→20:59)
[2018-02-19] MEDS: hydrALAZINE 25 MG TAB PO SCH ×2 (09:23→20:59)
[2018-02-19] MEDS: Folic Acid 1 MG TAB PO SCH ×2 (09:24→20:59)
[2018-02-19] MEDS: Famotidine 20 MG TAB PO SCH (09:24)
[2018-02-19] MEDS: Carvedilol 6.25 MG TAB PO SCH ×2 (09:24→17:58)
--- NOTE | 2018-02-19 09:24 | RAD ---
PORTABLE CHEST: Date: 02-19-18 Provided Clinical History: Respiratory insufficiency. FINDINGS: Comparison 02-18-18 Significant interval change with respect to the prior examination is not apparent. IMPRESSION: As above. POS: ANNE
--- NOTE | 2018-02-19 09:34 | PRG ---
DATE OF SERVICE: 02/19/2018 SERVICE: Renal Medicine. SUBJECTIVE: Mr. Villalobos is a 67-year-old white male who was seen by the Renal Service for his acute ki dney injury with concomitant hypercalcemia. He has been empirically volume depleted without improvem ent of the renal function. However, renal function has been stabilizing in the last few days. He mo st likely has superimposed acute tubular necrosis. He was also hypercalcemic and received calcitonin and Zometa. Finally, the serum calcium is now down to normal. He is still confused. The patient h as been extubated. During the interim, he went into acute respiratory failure secondary to an aspira tion. He also had a right chest tube placed and has undergone a thoracentesis. No new complaints today. PHYSICAL EXAMINATION: VITAL SIGNS: Blood pressure 138/59, heart rate 79, respiratory rate is 20, pulse ox 95%. GENERAL: Awake, alert, comfortable, somewhat confused. SKIN: Adequate turgor. HEENT: He has pinkish conjunctivae, anicteric sclerae. NECK: No neck mass, no carotid bruits, no JVD. CHEST: No deformities. LUNGS: Decreased breath sounds. Positive for right chest tube. HEART: Normal sinus rhythm. No murmur, gallops, no rubs. ABDOMEN: Globular, soft, nontender, no masses. EXTREMITIES: No edema, no deformities. MEDICATIONS: Of 02/19/2018 was reviewed. LABORATORY DATA: Of 02/19/2018, white count 8.5, hemoglobin 8.3. Sodium 142, potassium 3.2, chlorid e 105, carbon dioxide 22, BUN 60, creatinine 2.42, glucose 128, calcium 9.9. ASSESSMENT AND PLAN: 1. Hypercalcemia, resolved, status post Zometa/calcitonin secondary to underlying malignancy. 2. T onsillar carcinoma - metastatic lesion - evidence of lung cancer on the lungs. 3. Acute renal failure - most likely superimposed acute tubular necrosis. Patient has been diuresed due to the congestive heart failure. So far, creatinine is holding steady. No indication for any d ialytic intervention. 4. Metastatic lung cancer - we will await Oncology input.
--- NOTE | 2018-02-19 10:28 | PRG ---
DATE OF SERVICE: 02/19/2018 SUBJECTIVE: He is off all sedation, awake, alert, responsive, no distress. OBJECTIVE: VITAL SIGNS: Blood pressure 150/60, pulse 77, sats are 98%. His I's and O's over the last 24 hours have been good GENERAL: Neurologically, he is awake, alert, moves all 4 extremities. CHEST: With decreased breath sounds, minimal rhonchi. CARDIAC: Normal S1, S2, no gallops. ABDOMEN: Soft. NEUROLOGIC: Unremarkable. LABORATORY DATA: White count 8000, H&H is 8 and 24, platelet count is 194. PO2 is 80, pCO2 is 29, pH 7.53. Creatinine is 2.4, BUN is 68. IMPRESSION: Multiorgan failure, renal failure, respiratory failure, bilateral pleural effusion, metastatic cancer. PLAN: He will be extubated today. We are going to try and drain some fluid from his right chest where he has a tunneled catheter. I am going to continue empiric antibiotics. PT and supportive care. He is a DNR. Regarding his left-sided pleural effusion , contine observation consider drainage at a later time.,if it incresesis One-half hour critical care time. [place]
--- NOTE | 2018-02-19 15:11 | PDOC.PN ---
- Subjective Encounter Start Date: 02/19/18 Encounter Start Time: 15:10 Subjective: feels much better. extubated this morning.family at bedside -: denies any discomfort - Objective Resuscitation Status: Resuscitation Status DNR:Do Not Resuscitate MAR Reviewed: Yes Vital Signs & Weight: Vital Signs (12 hours) Temp Pulse Resp BP Pulse Ox 02/19/18 13:44 97 02/19/18 13:41 71 16 97 02/19/18 12:00 97 F L 02/19/18 11:23 95 02/19/18 09:24 153/62 H 02/19/18 09:23 67 153/62 H 02/19/18 08:00 97.6 F 67 15 96 02/19/18 07:27 67 150/60 H 98 02/19/18 06:00 13 02/19/18 04:00 98.5 F 12 02/19/18 03:58 80 Weight Admit Weight 179 lb 7.3 oz Weight 178 lb 2.136 oz Most Recent Monitor Data Heart Rate from ECG 81 NIBP 135/58 NIBP BP-Mean 73 Respiration from ECG 22 SpO2 94 I&O: 02/18/18 02/19/18 02/20/18 06:59 06:59 06:59 Intake Total 1138 2553 400 Output Total 900 2745 1405 Balance 238 192 -1005 Result Diagrams: 02/19/18 04:55 02/19/18 04:55 Additional Labs: Microbiology 02/13/18 12:13 Pleural fluid Body Fluid Culture - Final 02/13/18 12:13 Pleural fluid Acid Fast Bacilli Smear - Final 02/12/18 17:52 Venous blood - Right Foot Blood Culture - Final NO GROWTH IN 5 DAYS 02/12/18 17:38 Venous blood - Left Arm Blood Culture - Final NO GROWTH IN 5 DAYS 02/12/18 17:17 Urine voided Urine Culture - Final NO GROWTH AT 36 HOURS 02/16/18 11:47 Venous blood - Left Arm Blood Culture - Preliminary NO GROWTH AT 48 HOURS 02/16/18 11:40 Venous blood - Right Arm Blood Culture - Preliminary NO GROWTH AT 48 HOURS labs reviewed Phys Exam - Physical Examination Constitutional: NAD pale HEENT: PERRLA, moist MMs, sclera anicteric, oral pharynx no lesions Neck: no nodes, no JVD, supple, full ROM Respiratory: no wheezing, no rales, no rhonchi Cardiovascular: RRR, no significant murmur Gastrointestinal: soft, non-tender, no distention, positive bowel sounds Musculoskeletal: no edema, pulses present Neurological: non-focal, normal sensation, moves all 4 limbs Psychiatric: normal affect, A&O x 3 Deviation from normal: some confusion Skin: no rash Dx/Plan (1) Acute respiratory failure with hypoxia Code(s): J96.01 - ACUTE RESPIRATORY FAILURE WITH HYPOXIA Status: Acute Comment: improved.on IV Abx,IV steroids (2) Aspiration pneumonia due to regurgitated food Code(s): J69.0 - PNEUMONITIS DUE TO INHALATION OF FOOD AND VOMIT Status: Acute Comment: on Rocephin (3) LIZETH (acute kidney injury) Code(s): N17.9 - ACUTE KIDNEY FAILURE, UNSPECIFIED Status: Acute Comment: stable (4) Hypercalcemia Code(s): E83.52 - HYPERCALCEMIA Status: Acute Comment: s/p calcitonin,IVF and Zometa X1.Discussed w Dr. guerra.PTH low. PTHrP normal.Vit D levels Normal (5) Hypomagnesemia Code(s): E83.42 - HYPOMAGNESEMIA Status: Acute (6) Hypokalemia Code(s): E87.6 - HYPOKALEMIA Status: Acute (7) Pleural effusion Code(s): J90 - PLEURAL EFFUSION, NOT ELSEWHERE CLASSIFIED Status: Acute Comment: s/p R Thoracentesis.Cx negative so far.Pathology +ve for Metastatic Cancer (8) History of malignant neoplasm of tonsil Code(s): Z85.818 - PRSNL HX OF MALIG NEOPLM OF SITE OF LIP, ORAL CAV, & PHARYNX Status: Chronic Comment: s/p Chemo and XRT ,finished in 06/2017. (9) Fever Code(s): R50.9 - FEVER, UNSPECIFIED Status: Acute Qualifiers: Fever type: unspecified Qualified Code(s): R50.9 - Fever, unspecified (10) S/P CABG x 3 Code(s): Z95.1 - PRESENCE OF AORTOCORONARY BYPASS GRAFT Status: Chronic (11) HLD (hyperlipidemia) Code(s): E78.5 - HYPERLIPIDEMIA, UNSPECIFIED Status: Chronic Comment: Lipitor 40mg HS (12) HTN (hypertension) Code(s): I10 - ESSENTIAL (PRIMARY) HYPERTENSION Status: Chronic Qualifiers: Hypertension type: essential hypertension Qualified Code(s): I10 - Essential (primary) hypertension Comment: stable, (13) PAD (peripheral artery disease) Code(s): I73.9 - PERIPHERAL VASCULAR DISEASE, UNSPECIFIED Status: Chronic Comment: s/p angioplasty in past, stable (14) Chronic diastolic CHF (congestive heart failure) Code(s): I50.32 - CHRONIC DIASTOLIC (CONGESTIVE) HEART FAILURE Status: Chronic - Plan continue antibiotics, PT/OT, DVT proph w/SCDs clinically better.calcium levels better. PTHrp NL? Bone mets -: ? PET vs Bone Scan.Oncology to decide -: renal Fx stable.On lasix per nephro,IVF per CTS -: s/p pleural X catheter R side.Daily CXR -: weaned off of vent.cont supportive care. * . Review of Systems - Review of Systems Constitutional: weakness, malaise. negative: fever, chills, sweats, other Respiratory: Cough Cardiovascular: negative: chest pain, palpitations, orthopnea, paroxysmal nocturnal dyspnea, edema, light headedness, other Gastrointestinal: negative: Nausea, Vomiting, Abdominal Pain, Diarrhea, Constipation, Melena, Hematochezia, Other Genitourinary: negative: Dysuria, Frequency, Incontinence, Hematuria, Retention , Other Musculoskeletal: negative: Neck Pain, Shoulder Pain, Arm Pain, Back Pain, Hand Pain, Leg Pain, Foot Pain, Other Neurological: negative: Weakness, Numbness, Incoordination, Change in Speech, Confusion, Seizures, Other - Medications/Allergies Allergies/Adverse Reactions: Allergies Allergy/AdvReac Type Severity Reaction Status Date / Time No Known Allergies Allergy Verified 02/12/18 20:47 Medications: Current Medications Acetaminophen (Tylenol) 1,000 mg PO Q6H PRN PRN Reason: Headache/Fever or Pain Last Admin: 02/16/18 09:25 Dose: 1,000 mg Al Hydroxide/Mg Hydroxide (Maalox) 30 ml PO Q6H PRN PRN Reason: Heartburn or Indigestion Albuterol/Ipratropium (Duoneb) 3 ml NEB [id number] [facility] Last Admin: 02/19/18 13:41 Dose: 3 ml Aspirin (Aspirin Chewable) 81 mg PO DAILY [facility] Last Admin: 02/19/18 09:24 Dose: 81 mg Bisacodyl (Dulcolax) 10 mg HI Q24H PRN PRN Reason: Constipation Carvedilol (Coreg) 6.25 mg PO BID-[facility] Last Admin: 02/19/18 09:24 Dose: 6.25 mg Famotidine (Pepcid) 20 mg PO DAILY [facility] Last Admin: 02/19/18 09:24 Dose: 20 mg Folic Acid (Folvite) 1 mg PO BID [facility] Last Admin: 02/19/18 09:24 Dose: 1 mg Furosemide (Lasix) 40 mg SLOW IVP 0600,1400 [facility] Last Admin: 02/19/18 13:26 Dose: 40 mg Heparin Sodium (Porcine) (Heparin) 5,000 units SC BID [facility] Last Admin: 02/19/18 09:23 Dose: 5,000 units Hydralazine HCl (Apresoline) 10 mg SLOW IVP Q4H PRN PRN Reason: SBP Greater Than 180 Last Admin: 02/17/18 05:02 Dose: 10 mg Hydralazine HCl (Apresoline) 25 mg PO BID [facility] Last Admin: 02/19/18 09:23 Dose: 25 mg Sodium Chloride (1/2 Normal Saline) 1,000 mls @ 75 mls/hr IV .[id number] [facility] Last Admin: 02/19/18 05:36 Dose: 1,000 mls Ceftriaxone Sodium 1 gm/ (Sodium Chloride) 100 mls @ 200 mls/hr IVPB 1800 [facility] Last Admin: 02/18/18 18:18 Dose: 100 mls Potassium Chloride 40 meq/ (Sodium Chloride) 270 mls @ 135 mls/hr IVPB ASDIR PRN PRN Reason: FOR SERUM K+ 2.5 - 3.5 Potassium Chloride 40 meq/ (Device) 100 mls @ 50 mls/hr IVPB ASDIR PRN PRN Reason: FOR SERUM K+ 2.5 - 3.5 Magnesium Sulfate 1 gm/ Sodium (Chloride) 102 mls @ 102 mls/hr IV PRN PRN PRN Reason: MAG LEVEL 1.4 - 2.0 Magnesium Sulfate 2 gm/ Device 100 mls @ 100 mls/hr IVPB ASDIR PRN PRN Reason: MAGNESIUM < 1.4 Potassium Phosphate 9 mmol/ (Sodium Chloride) 103 mls @ 25.75 mls/hr IVPB ASDIR PRN PRN Reason: Phosphate 1.0-1.8 Potassium Phosphate 12 mmol/ (Sodium Chloride) 254 mls @ 63.5 mls/hr IV ASDIR PRN PRN Reason: Serum phosphate 0.5-0.9 Potassium Phosphate 15 mmol/ (Sodium Chloride) 255 mls @ 63.75 mls/hr IV ASDIR PRN PRN Reason: Serum Phos < 0.5 Labetalol HCl (Normodyne) 10 mg SLOW IVP Q4H PRN PRN Reason: SBP Greater Than 180 Magnesium Oxide (Magnesium Oxide) 400 mg PO BIDPRN PRN PRN Reason: FOR SERUM MAG 1.4 - 2.0 Magnesium Oxide (Magnesium Oxide) 800 mg PO PRN PRN PRN Reason: FOR SERUM MAG < 1.4 Methylprednisolone Sodium Succinate (Solu-Medrol) 40 mg IVP BID [facility] Last Admin: 02/19/18 09:23 Dose: 40 mg Miscellaneous Medication (Phos-Nak) 1 pkt PO TIDPRN PRN PRN Reason: FOR PHOS LEVEL 1.0 - 1.8 Miscellaneous Medication (Phos-Nak) 2 pkt PO TIDPRN PRN PRN Reason: FOR PHOS LEVEL 0.5 - 1.0 Nitroglycerin (Nitrostat) 0.4 mg PO Q5MIN PRN PRN Reason: Chest Pain Discontinue Previous Narcotic Pain Medications And Benzodiazepines 1 each FS .ONE [facility] Stop: 03/19/18 15:40 Ccu Electrolyte (Replacement Protocol) 0 each FS PRN PRN PRN Reason: FOR ELECTROLYTE REPLACEMENT Ondansetron HCl (Zofran Odt) 4 mg PO Q6H PRN PRN Reason: Nausea/Vomiting Ondansetron HCl (Zofran) 4 mg IVP Q6H PRN PRN Reason: Nausea/Vomiting Polyethylene Glycol (Miralax) 17 gm PO BID [facility] Last Admin: 02/19/18 08:28 Dose: Not Given Potassium Chloride (K-Dur) 40 meq PO ASDIR PRN PRN Reason: FOR SERUM K+ 2.5 - 3.5 Potassium Chloride (Klor-Con) 40 meq PER TUBE ASDIR PRN PRN Reason: FOR SERUM K+ 2.5-3.5 Last Admin: 02/19/18 09:40 Dose: 40 meq Senna/Docusate Sodium (Senokot S) 1 tab PO BID [facility] Last Admin: 02/19/18 08:28 Dose: Not Given Sodium Chloride (Flush - Normal Saline) 10 ml IVF Q12HR [facility] Last Admin: 02/19/18 09:23 Dose: 10 ml Sodium Chloride (Flush - Normal Saline) 10 ml IVF PRN PRN PRN Reason: Saline Flush
[2018-02-19] MEDS: cefTRIAXone\\ROCEPHIN 1 GM in Sodium Chloride 0.9% 100 ML IVPB SCH (17:59)
[2018-02-20 04:26] LABS: Band 6 % (5-11); Lymphocytes 2 % (21-51); MDiff Complete? YES; Mean Corpuscular HGB CONC 34.6 g/dL (32.0-36.0); Mean Corpuscular Hemoglobin 30.9 pg (27.0-31.0); Mean Corpuscular Volume 89.2 fL (78.0-98.0); Mean Platelet Volume 7.3 fL (7.4-10.4); Monocytes 4 % (0-10); Neutrophil 88 % (42-75); Platelet Count 203 thou/uL (130-400); RBC Distribution Width 12.2 % (11.5-14.5); Red Blood Cell (RBC) Count 2.93 mill/uL (4.70-6.10); White Blood Cell (WBC) Count 11.7 thou/uL (4.8-10.8)
[2018-02-20 04:30] LABS: Anion Gap 18 mmol/L (10-20); BUN (Urea Nitrogen) 83 mg/dL (8.4-25.7); Calc. Creatinine Clearance 34 mL/min (70-130); Calcium 9.8 mg/dL (7.8-10.44); Carbon Dioxide 25 mmol/L (23-31); Chloride 101 mmol/L (98-107); Estimated GFR-MDRD 27; Glucose 126 mg/dL (80-115); Magnesium 1.6 mg/dL (1.6-2.6); Potassium 3.1 mmol/L (3.5-5.1); Sodium 141 mmol/L (136-145)
[2018-02-20] MEDS: Furosemide 40 MG/4 ML VIAL SLOW IVP SCH (05:34)
[2018-02-20] MEDS: Carvedilol 6.25 MG TAB PO SCH ×2 (08:07→17:00)
[2018-02-20] MEDS: Folic Acid 1 MG TAB PO SCH ×2 (08:08→21:51)
[2018-02-20] MEDS: Heparin 5,000 UNITS/ML VIAL SC SCH ×2 (08:08→21:51)
[2018-02-20] MEDS: Famotidine 20 MG TAB PO SCH (08:08)
[2018-02-20] MEDS: Senokot S 8.6-50 MG TAB PO SCH ×2 (08:09→21:51)
[2018-02-20] MEDS: hydrALAZINE 25 MG TAB PO SCH ×2 (08:09→21:52)
[2018-02-20] MEDS: Polyethylene Glycol 3350 17 GM Packet PO SCH ×2 (08:10→21:54)
[2018-02-20] MEDS: methylPREDNISolone Sod Succ/PF 125 MG/2 ML VIAL IVP SCH ×2 (08:10→21:52)
--- NOTE | 2018-02-20 09:41 | PRG ---
DATE OF SERVICE: 02/20/2018 SUBJECTIVE: This morning, he is awake, alert, and responsive. His chest x-ray shows this morning th at the left-sided effusion to have resolved and his right-sided effusion is much better. OBJECTIVE: GENERAL: He is awake, alert, though still confused. VITAL SIGNS: Pulse 108, blood pressure 117/70, sats 100% on 2 liters. CHEST: Decreased breath sounds bilaterally. CARDIAC: Normal S1 and S2. No gallops. ABDOMEN: Soft. LABORATORY DATA: Creatinine is 2.37, BUN 83. H and H is 9 and 26. Calcium is 9.8. IMPRESSION: 1. Metastatic squamous cell carcinoma. 2. Hypercalcemia. 3. Renal failure. PLAN: The patient is much improved. He will be transferred out of the ICU to an unmonitored bed. He is a DNR. Further disposition as per Oncology.
--- NOTE | 2018-02-20 09:43 | PRG ---
DATE OF SERVICE: 02/20/2018 RENAL MEDICINE SUBJECTIVE: Mr. Villalobos is a 67-year-old white male who was seen by the Renal Service for his acute ki dney injury/hypercalcemia. Hypercalcemia much improved after initiation of calcitonin and Zometa. I n addition, renal function is stabilizing. He was found also to have had an aspiration and was intub ated. He is now currently extubated. Due to the CHF on x-ray, he is currently receiving diuretics. He seems to be doing stable. Oncology is following. Awaiting for resolution of the acute renal dys function. I feel that this patient may most likely have some degree of ATN. No other complaints. PHYSICAL EXAMINATION: VITAL SIGNS: Blood pressure 123/72, heart rate 83, respiratory rate 18, pulse ox 97%, heart rate 80. GENERAL: Awake, alert, supine, comfortable, not in distress. SKIN: Adequate turgor. HEENT: Slightly pale conjunctivae, anicteric sclerae. NECK: No neck mass, no carotid bruits, no JVD. CHEST: No deformities. LUNGS: Decreased breath sounds. HEART: Normal sinus rhythm. No murmurs, no gallops, no rubs. ABDOMEN: Globular, soft, nontender, no masses. EXTREMITIES: No edema. MEDICATIONS: Medications of 02/20/2018 was reviewed. LABORATORY DATA: Laboratories of 02/20/2018; white count 11.7, hemoglobin 9, hematocrit 26.1, sodium 141, potassium 3.1, chloride 101, carbon dioxide 25, BUN 83, creatinine 2.37, calcium 9.8, magnesium 1.6. ASSESSMENT AND PLAN: 1. Hypercalcemia, much improved - actually calcium is now normal. He is status post calcitonin/Zome ta. 2. Acute kidney injury, stabilizing renal function. He is diuresing well. We will adjust Lasix fro m 40 mg IV q.12 to once a day. No indication for any dialytic intervention. 3. Mild hypokalemia, p.r.n. potassium replacement. 4. Borderline anemia. Continue to observe. 5. Metastatic lung cancer - continue supportive care. Oncology is following.
--- NOTE | 2018-02-20 09:49 | RAD ---
CHEST 1 VIEW: Date: 02/20/18 HISTORY: Ventilated patient. COMPARISON: Chest radiograph from prior day. FINDINGS: The right thoracostomy tube is similar. Layering right effusion is present. Left lung relative clear. No large pneumothorax. The endotracheal tube and the enteric tube have been removed. IMPRESSION: Interval extubation and removal of the enteric tube without complication. POS: [facility]
[2018-02-20 11:05] VITALS: BMI 23.6
[2018-02-20] MEDS: Sodium Chloride 0.45% 1,000 ML IV SCH (11:17)
--- NOTE | 2018-02-20 13:06 | PDOC.PN ---
- Subjective Encounter Start Date: 02/20/18 Encounter Start Time: 13:05 Subjective: feels much better. awake and alert and sat in chair for over 2 hours -: no overnight events - Objective Resuscitation Status: Resuscitation Status DNR:Do Not Resuscitate MAR Reviewed: Yes Vital Signs & Weight: Vital Signs (12 hours) Temp Pulse Resp BP Pulse Ox 02/20/18 08:41 77 18 02/20/18 08:09 83 123/72 02/20/18 08:07 123/72 02/20/18 07:35 97.6 F 02/20/18 04:00 97.9 F 02/20/18 01:31 95 Weight Admit Weight 179 lb 7.3 oz Weight 174 lb 2.643 oz Most Recent Monitor Data Heart Rate from ECG 78 NIBP 133/58 NIBP BP-Mean 76 Respiration from ECG 18 SpO2 93 I&O: 02/19/18 02/20/18 02/21/18 06:59 06:59 06:59 Intake Total 2553 2245 540 Output Total 9170 4751 4262 [facility]547 [id number] Result Diagrams: 02/20/18 03:30 02/20/18 03:30 Additional Labs: Microbiology 02/16/18 14:55 Urine fleming catheter Urine Culture - Final NO GROWTH AT 48 HOURS 02/13/18 12:13 Pleural fluid Body Fluid Culture - Final 02/13/18 12:13 Pleural fluid Acid Fast Bacilli Smear - Final 02/12/18 17:52 Venous blood - Right Foot Blood Culture - Final NO GROWTH IN 5 DAYS 02/12/18 17:38 Venous blood - Left Arm Blood Culture - Final NO GROWTH IN 5 DAYS 02/12/18 17:17 Urine voided Urine Culture - Final NO GROWTH AT 36 HOURS 02/16/18 11:47 Venous blood - Left Arm Blood Culture - Preliminary NO GROWTH AT 48 HOURS 02/16/18 11:40 Venous blood - Right Arm Blood Culture - Preliminary NO GROWTH AT 48 HOURS Laboratory Tests 02/12/18 02/12/18 02/13/18 16:19 22:06 11:16 Creatinine 2.04 H 1.92 H Calcium 15.9 H* 14.0 H* 02/14/18 02/15/18 02/16/18 04:39 10:00 04:44 Creatinine 1.85 H 2.00 H Calcium 12.9 H* 13.2 H* 02/17/18 02/18/18 02/19/18 05:10 04:56 04:55 Creatinine 2.29 H 2.39 H 2.42 H Calcium 13.1 H* 11.6 H 9.9 02/20/18 03:30 Creatinine 2.37 H Calcium 9.8 labs reviewed Phys Exam - Physical Examination Constitutional: NAD HEENT: PERRLA, moist MMs, sclera anicteric, oral pharynx no lesions Neck: no nodes, no JVD, supple, full ROM Respiratory: no wheezing, no rales, no rhonchi, clear to auscultation bilateral Cardiovascular: RRR, no significant murmur, no rub Gastrointestinal: soft, non-tender Musculoskeletal: no edema, pulses present Neurological: non-focal, normal sensation, moves all 4 limbs Psychiatric: normal affect, A&O x 3 Skin: no rash Dx/Plan (1) Acute respiratory failure with hypoxia Code(s): J96.01 - ACUTE RESPIRATORY FAILURE WITH HYPOXIA Status: Acute Comment: improved.on IV Abx,IV steroids.extubated (2) Aspiration pneumonia due to regurgitated food Code(s): J69.0 - PNEUMONITIS DUE TO INHALATION OF FOOD AND VOMIT Status: Acute Comment: on Rocephin (3) LIZETH (acute kidney injury) Code(s): N17.9 - ACUTE KIDNEY FAILURE, UNSPECIFIED Status: Acute Comment: stable (4) Hypercalcemia Code(s): E83.52 - HYPERCALCEMIA Status: Acute Comment: s/p calcitonin,IVF and Zometa X1.Discussed w Dr. guerra.PTH low. PTHrP normal.Vit D levels Normal (5) Hypomagnesemia Code(s): E83.42 - HYPOMAGNESEMIA Status: Acute (6) Hypokalemia Code(s): E87.6 - HYPOKALEMIA Status: Acute (7) Pleural effusion Code(s): J90 - PLEURAL EFFUSION, NOT ELSEWHERE CLASSIFIED Status: Acute Comment: s/p R Thoracentesis.Cx negative so far.Pathology +ve for Metastatic Cancer (8) History of malignant neoplasm of tonsil Code(s): Z85.818 - PRSNL HX OF MALIG NEOPLM OF SITE OF LIP, ORAL CAV, & PHARYNX Status: Chronic Comment: s/p Chemo and XRT ,finished in 06/2017. (9) Fever Code(s): R50.9 - FEVER, UNSPECIFIED Status: Acute Qualifiers: Fever type: unspecified Qualified Code(s): R50.9 - Fever, unspecified (10) S/P CABG x 3 Code(s): Z95.1 - PRESENCE OF AORTOCORONARY BYPASS GRAFT Status: Chronic (11) HLD (hyperlipidemia) Code(s): E78.5 - HYPERLIPIDEMIA, UNSPECIFIED Status: Chronic Comment: Lipitor 40mg HS (12) HTN (hypertension) Code(s): I10 - ESSENTIAL (PRIMARY) HYPERTENSION Status: Chronic Qualifiers: Hypertension type: essential hypertension Qualified Code(s): I10 - Essential (primary) hypertension Comment: stable, (13) PAD (peripheral artery disease) Code(s): I73.9 - PERIPHERAL VASCULAR DISEASE, UNSPECIFIED Status: Chronic Comment: s/p angioplasty in past, stable (14) Chronic diastolic CHF (congestive heart failure) Code(s): I50.32 - CHRONIC DIASTOLIC (CONGESTIVE) HEART FAILURE Status: Chronic - Plan plan discussed w/ family, respiratory therapy, incentive spirometry, DVT proph w /SCDs clinically better. add IS.cont Steroids ,Empiric Abx. -: calcium NL.Cr improving. On IVF-will stop. cont lasix -: strict I/Os.daily labs -: OK to trasnfer Out of CCU. -: stable B/L Pleural effusions.cont lasix * .OP work up for metastases * HD stable. * rehab eval Review of Systems - Review of Systems Constitutional: negative: fever, chills, sweats, weakness, malaise, other ENT: negative: Ear Pain, Ear Discharge, Nose Pain, Nose Discharge, Nose Congestion, Mouth Pain, Mouth Swelling, Throat Pain, Throat Swelling, Other Respiratory: negative: Cough, Dry, Shortness of Breath, Hemoptysis, SOB with Excertion, Pleuritic Pain, Sputum, Wheezing Cardiovascular: negative: chest pain, palpitations, orthopnea, paroxysmal nocturnal dyspnea, edema, light headedness, other Gastrointestinal: negative: Nausea, Vomiting, Abdominal Pain, Diarrhea, Constipation, Melena, Hematochezia, Other Genitourinary: negative: Dysuria, Frequency, Incontinence, Hematuria, Retention , Other Musculoskeletal: negative: Neck Pain, Shoulder Pain, Arm Pain, Back Pain, Hand Pain, Leg Pain, Foot Pain, Other Skin: negative: Rash, Lesions, Adelfo, Bruising, Other Neurological: negative: Weakness, Numbness, Incoordination, Change in Speech, Confusion, Seizures, Other - Medications/Allergies Allergies/Adverse Reactions: Allergies Allergy/AdvReac Type Severity Reaction Status Date / Time No Known Allergies Allergy Verified 02/12/18 20:47 Medications: Current Medications Acetaminophen (Tylenol) 1,000 mg PO Q6H PRN PRN Reason: Headache/Fever or Pain Last Admin: 02/16/18 09:25 Dose: 1,000 mg Al Hydroxide/Mg Hydroxide (Maalox) 30 ml PO Q6H PRN PRN Reason: Heartburn or Indigestion Albuterol/Ipratropium (Duoneb) 3 ml NEB [id number] [facility] Last Admin: 02/20/18 08:41 Dose: 3 ml Aspirin (Aspirin Chewable) 81 mg PO DAILY [facility] Last Admin: 02/20/18 08:08 Dose: 81 mg Bisacodyl (Dulcolax) 10 mg MS Q24H PRN PRN Reason: Constipation Carvedilol (Coreg) 6.25 mg PO BID-[facility] Last Admin: 02/20/18 08:07 Dose: 6.25 mg Famotidine (Pepcid) 20 mg PO DAILY [facility] Last Admin: 02/20/18 08:08 Dose: 20 mg Folic Acid (Folvite) 1 mg PO BID [facility] Last Admin: 02/20/18 08:08 Dose: 1 mg Furosemide (Lasix) 40 mg SLOW IVP DAILY [facility] Heparin Sodium (Porcine) (Heparin) 5,000 units SC BID [facility] Last Admin: 02/20/18 08:08 Dose: 5,000 units Hydralazine HCl (Apresoline) 10 mg SLOW IVP Q4H PRN PRN Reason: SBP Greater Than 180 Last Admin: 02/17/18 05:02 Dose: 10 mg Hydralazine HCl (Apresoline) 25 mg PO BID [facility] Last Admin: 02/20/18 08:09 Dose: 25 mg Sodium Chloride (1/2 Normal Saline) 1,000 mls @ 75 mls/hr IV .[id number] [facility] Last Admin: 02/20/18 11:17 Dose: 1,000 mls Potassium Chloride 40 meq/ (Sodium Chloride) 270 mls @ 135 mls/hr IVPB ASDIR PRN PRN Reason: FOR SERUM K+ 2.5 - 3.5 Potassium Chloride 40 meq/ (Device) 100 mls @ 50 mls/hr IVPB ASDIR PRN PRN Reason: FOR SERUM K+ 2.5 - 3.5 Magnesium Sulfate 1 gm/ Sodium (Chloride) 102 mls @ 102 mls/hr IV PRN PRN PRN Reason: MAG LEVEL 1.4 - 2.0 Magnesium Sulfate 2 gm/ Device 100 mls @ 100 mls/hr IVPB ASDIR PRN PRN Reason: MAGNESIUM < 1.4 Potassium Phosphate 9 mmol/ (Sodium Chloride) 103 mls @ 25.75 mls/hr IVPB ASDIR PRN PRN Reason: Phosphate 1.0-1.8 Potassium Phosphate 12 mmol/ (Sodium Chloride) 254 mls @ 63.5 mls/hr IV ASDIR PRN PRN Reason: Serum phosphate 0.5-0.9 Potassium Phosphate 15 mmol/ (Sodium Chloride) 255 mls @ 63.75 mls/hr IV ASDIR PRN PRN Reason: Serum Phos < 0.5 Labetalol HCl (Normodyne) 10 mg SLOW IVP Q4H PRN PRN Reason: SBP Greater Than 180 Magnesium Oxide (Magnesium Oxide) 400 mg PO BIDPRN PRN PRN Reason: FOR SERUM MAG 1.4 - 2.0 Magnesium Oxide (Magnesium Oxide) 800 mg PO PRN PRN PRN Reason: FOR SERUM MAG < 1.4 Methylprednisolone Sodium Succinate (Solu-Medrol) 40 mg IVP BID [facility] Last Admin: 02/20/18 08:10 Dose: 40 mg Miscellaneous Medication (Phos-Nak) 1 pkt PO TIDPRN PRN PRN Reason: FOR PHOS LEVEL 1.0 - 1.8 Miscellaneous Medication (Phos-Nak) 2 pkt PO TIDPRN PRN PRN Reason: FOR PHOS LEVEL 0.5 - 1.0 Nitroglycerin (Nitrostat) 0.4 mg PO Q5MIN PRN PRN Reason: Chest Pain Discontinue Previous Narcotic Pain Medications And Benzodiazepines 1 each FS .ONE [facility] Stop: 03/19/18 15:40 Ccu Electrolyte (Replacement Protocol) 0 each FS PRN PRN PRN Reason: FOR ELECTROLYTE REPLACEMENT Ondansetron HCl (Zofran Odt) 4 mg PO Q6H PRN PRN Reason: Nausea/Vomiting Ondansetron HCl (Zofran) 4 mg IVP Q6H PRN PRN Reason: Nausea/Vomiting Polyethylene Glycol (Miralax) 17 gm PO BID [facility] Last Admin: 02/20/18 08:10 Dose: 17 gm Potassium Chloride (K-Dur) 40 meq PO ASDIR PRN PRN Reason: FOR SERUM K+ 2.5 - 3.5 Potassium Chloride (Klor-Con) 40 meq PER TUBE ASDIR PRN PRN Reason: FOR SERUM K+ 2.5-3.5 Last Admin: 02/19/18 09:40 Dose: 40 meq Senna/Docusate Sodium (Senokot S) 1 tab PO BID [facility] Last Admin: 02/20/18 08:09 Dose: 1 tab Sodium Chloride (Flush - Normal Saline) 10 ml IVF Q12HR [facility] Last Admin: 02/20/18 08:10 Dose: 10 ml Sodium Chloride (Flush - Normal Saline) 10 ml IVF PRN PRN PRN Reason: Saline Flush
[2018-02-20] MEDS: Acetaminophen 500 MG TAB PO PRN (16:01)
[2018-02-20] MEDS: Melatonin 3 MG TAB PO PRN (21:51)
[2018-02-21] MEDS ORDERED: ALPRAZolam 0.25 MG TAB PO SCH (00:45)
[2018-02-21 05:22] LABS: Anion Gap 19 mmol/L (10-20); BUN (Urea Nitrogen) 77 mg/dL (8.4-25.7); Calc. Creatinine Clearance 38 mL/min (70-130); Calcium 8.7 mg/dL (7.8-10.44); Carbon Dioxide 22 mmol/L (23-31); Chloride 103 mmol/L (98-107); Estimated GFR-MDRD 32; Glucose 101 mg/dL (80-115); Magnesium 1.9 mg/dL (1.6-2.6); Potassium 3.3 mmol/L (3.5-5.1); Sodium 141 mmol/L (136-145)
[2018-02-21 08:06] LABS: Band 6 % (5-11); Hemoglobin 8.8 g/dL (14.0-18.0); Lymphocytes 3 % (21-51); MDiff Complete? YES; Mean Corpuscular HGB CONC 34.2 g/dL (32.0-36.0); Mean Corpuscular Hemoglobin 30.5 pg (27.0-31.0); Mean Platelet Volume 7.2 fL (7.4-10.4); Monocytes 9 % (0-10); Neutrophil 82 % (42-75); Platelet Count 192 thou/uL (130-400); RBC Distribution Width 12.1 % (11.5-14.5); White Blood Cell (WBC) Count 11.4 thou/uL (4.8-10.8)
[2018-02-21] MEDS: hydrALAZINE 25 MG TAB PO SCH ×2 (10:21→21:34)
[2018-02-21] MEDS: Folic Acid 1 MG TAB PO SCH ×2 (10:21→21:35)
[2018-02-21] MEDS: Famotidine 20 MG TAB PO SCH (10:21)
[2018-02-21] MEDS: Carvedilol 6.25 MG TAB PO SCH ×2 (10:22→18:40)
[2018-02-21] MEDS: Heparin 5,000 UNITS/ML VIAL SC SCH ×2 (10:24→21:35)
[2018-02-21] MEDS: Senokot S 8.6-50 MG TAB PO SCH ×2 (10:24→21:35)
[2018-02-21] MEDS: Furosemide 40 MG/4 ML VIAL SLOW IVP SCH (10:25)
[2018-02-21] MEDS: methylPREDNISolone Sod Succ/PF 125 MG/2 ML VIAL IVP SCH (10:25)
[2018-02-21] MEDS: Polyethylene Glycol 3350 17 GM Packet PO SCH ×2 (10:29→21:35)
--- NOTE | 2018-02-21 12:45 | PDOC.PN ---
- Subjective Encounter Start Date: 02/21/18 Encounter Start Time: 12:38 Subjective: feels better but was agitated last night ,better no -: no chest pain/SOB. very weak -: had good BM today and yesterday - Objective Resuscitation Status: Resuscitation Status DNR:Do Not Resuscitate MAR Reviewed: Yes Vital Signs & Weight: Vital Signs (12 hours) Temp Pulse Resp BP BP Pulse Ox 02/21/18 11:30 97.8 F 83 16 117/62 92 L 02/21/18 10:22 148/70 H 02/21/18 10:21 79 148/70 H 02/21/18 08:00 97.8 F 83 16 91 L 02/21/18 07:44 94 L 02/21/18 07:42 78 20 94 L 02/21/18 07:40 97.7 F 79 16 148/70 H 91 L Weight Admit Weight 179 lb 7.3 oz Weight 174 lb 2.643 oz Most Recent Monitor Data Heart Rate from ECG 88 NIBP 122/62 NIBP BP-Mean 77 Respiration from ECG 16 SpO2 94 I&O: 02/20/18 02/21/18 02/22/18 06:59 06:59 06:59 Intake Total 2245 1352 360 Output Total 8389 6603 Balance -8700 -4678 360 Result Diagrams: 02/21/18 04:37 02/21/18 04:37 Additional Labs: Microbiology 02/16/18 14:55 Urine fleming catheter Urine Culture - Final NO GROWTH AT 48 HOURS 02/13/18 12:13 Pleural fluid Body Fluid Culture - Final 02/13/18 12:13 Pleural fluid Acid Fast Bacilli Smear - Final 02/12/18 17:52 Venous blood - Right Foot Blood Culture - Final NO GROWTH IN 5 DAYS 02/12/18 17:38 Venous blood - Left Arm Blood Culture - Final NO GROWTH IN 5 DAYS 02/12/18 17:17 Urine voided Urine Culture - Final NO GROWTH AT 36 HOURS 02/16/18 11:47 Venous blood - Left Arm Blood Culture - Preliminary NO GROWTH AT 48 HOURS 02/16/18 11:40 Venous blood - Right Arm Blood Culture - Preliminary NO GROWTH AT 48 HOURS Laboratory Tests 02/12/18 02/12/18 02/13/18 16:19 22:06 11:16 Calcium 15.9 H* 14.9 H* 14.0 H* 07/29/18 07/30/18 07/31/18 10:00 04:44 05:10 Calcium 12.9 H* 13.2 H* 13.1 H* 02/18/18 02/19/18 02/20/18 04:56 04:55 03:30 Calcium 11.6 H 9.9 9.8 02/21/18 04:37 Calcium 8.7 labs reviewed Phys Exam - Physical Examination Constitutional: NAD pale HEENT: PERRLA, moist MMs, sclera anicteric, oral pharynx no lesions Neck: no nodes, no JVD, supple, full ROM Respiratory: no wheezing, no rales, no rhonchi, clear to auscultation bilateral Cardiovascular: RRR, no significant murmur Gastrointestinal: soft, non-tender, no distention, positive bowel sounds Musculoskeletal: no edema, pulses present Neurological: non-focal, normal sensation, moves all 4 limbs Psychiatric: normal affect, A&O x 3 Skin: no rash Dx/Plan (1) Aspiration pneumonia due to regurgitated food Code(s): J69.0 - PNEUMONITIS DUE TO INHALATION OF FOOD AND VOMIT Status: Acute Comment: on Rocephin (2) LIZETH (acute kidney injury) Code(s): N17.9 - ACUTE KIDNEY FAILURE, UNSPECIFIED Status: Acute Comment: stable (3) Hypercalcemia Code(s): E83.52 - HYPERCALCEMIA Status: Acute Comment: s/p calcitonin,IVF and Zometa X1.Discussed w Dr. guerra.PTH low. PTHrP normal.Vit D levels Normal (4) Hypomagnesemia Code(s): E83.42 - HYPOMAGNESEMIA Status: Acute (5) Hypokalemia Code(s): E87.6 - HYPOKALEMIA Status: Acute (6) Pleural effusion Code(s): J90 - PLEURAL EFFUSION, NOT ELSEWHERE CLASSIFIED Status: Acute Comment: s/p R Thoracentesis.Cx negative so far.Pathology +ve for Metastatic Cancer (7) History of malignant neoplasm of tonsil Code(s): Z85.818 - PRSNL HX OF MALIG NEOPLM OF SITE OF LIP, ORAL CAV, & PHARYNX Status: Chronic Comment: s/p Chemo and XRT ,finished in 06/2017. (8) Fever Code(s): R50.9 - FEVER, UNSPECIFIED Status: Acute Qualifiers: Fever type: unspecified Qualified Code(s): R50.9 - Fever, unspecified (9) S/P CABG x 3 Code(s): Z95.1 - PRESENCE OF AORTOCORONARY BYPASS GRAFT Status: Chronic (10) HLD (hyperlipidemia) Code(s): E78.5 - HYPERLIPIDEMIA, UNSPECIFIED Status: Chronic Comment: Lipitor 40mg HS (11) HTN (hypertension) Code(s): I10 - ESSENTIAL (PRIMARY) HYPERTENSION Status: Chronic Qualifiers: Hypertension type: essential hypertension Qualified Code(s): I10 - Essential (primary) hypertension Comment: stable, (12) PAD (peripheral artery disease) Code(s): I73.9 - PERIPHERAL VASCULAR DISEASE, UNSPECIFIED Status: Chronic Comment: s/p angioplasty in past, stable (13) Chronic diastolic CHF (congestive heart failure) Code(s): I50.32 - CHRONIC DIASTOLIC (CONGESTIVE) HEART FAILURE Status: Chronic (14) Acute respiratory failure with hypoxia Code(s): J96.01 - ACUTE RESPIRATORY FAILURE WITH HYPOXIA Status: Resolved Comment: improved.s/p IV Abx,IV steroids.extubated - Plan PT/OT, respiratory therapy, incentive spirometry, out of bed/ambulate, DVT proph w/SCDs DC planning.Rehab eval in progress -: cont and taper steroids. -: Off of IVF. lasix IV .calcium improved.PTHrP WNL -: ? Bome mets.OP Bone scan Vs PET-oncology to follow. -: add prn hs trazodoone for insomnia/agitation renal Fx better.monitor am labs * . Review of Systems - Review of Systems Constitutional: weakness, malaise. negative: fever, chills, sweats, other ENT: negative: Ear Pain, Ear Discharge, Nose Pain, Nose Discharge, Nose Congestion, Mouth Pain, Mouth Swelling, Throat Pain, Throat Swelling, Other Respiratory: SOB with Excertion. negative: Cough, Dry, Shortness of Breath, Hemoptysis, Pleuritic Pain, Sputum, Wheezing Cardiovascular: negative: chest pain, palpitations, orthopnea, paroxysmal nocturnal dyspnea, edema, light headedness, other Gastrointestinal: negative: Nausea, Vomiting, Abdominal Pain, Diarrhea, Constipation, Melena, Hematochezia, Other Genitourinary: negative: Dysuria, Frequency, Incontinence, Hematuria, Retention , Other Musculoskeletal: negative: Neck Pain, Shoulder Pain, Arm Pain, Back Pain, Hand Pain, Leg Pain, Foot Pain, Other Skin: negative: Rash, Lesions, Adelfo, Bruising, Other Neurological: negative: Weakness, Numbness, Incoordination, Change in Speech, Confusion, Seizures, Other - Medications/Allergies Allergies/Adverse Reactions: Allergies Allergy/AdvReac Type Severity Reaction Status Date / Time No Known Allergies Allergy Verified 02/12/18 20:47 Medications: Current Medications Acetaminophen (Tylenol) 1,000 mg PO Q6H PRN PRN Reason: Headache/Fever or Pain Last Admin: 02/20/18 16:01 Dose: 1,000 mg Al Hydroxide/Mg Hydroxide (Maalox) 30 ml PO Q6H PRN PRN Reason: Heartburn or Indigestion Albuterol/Ipratropium (Duoneb) 3 ml NEB [id number] [facility] Last Admin: 02/21/18 07:42 Dose: 3 ml Alprazolam (Xanax) 0.25 mg PO TIDPRN PRN PRN Reason: Anxiety Aspirin (Aspirin Chewable) 81 mg PO DAILY [facility] Last Admin: 02/21/18 10:21 Dose: 81 mg Bisacodyl (Dulcolax) 10 mg [place] Q24H PRN PRN Reason: Constipation Carvedilol (Coreg) 6.25 mg PO BID-[facility] Last Admin: 02/21/18 10:22 Dose: 6.25 mg Famotidine (Pepcid) 20 mg PO DAILY [facility] Last Admin: 02/21/18 10:21 Dose: 20 mg Folic Acid (Folvite) 1 mg PO BID [facility] Last Admin: 02/21/18 10:21 Dose: 1 mg Furosemide (Lasix) 40 mg SLOW IVP DAILY [facility] Last Admin: 02/21/18 10:25 Dose: 40 mg Heparin Sodium (Porcine) (Heparin) 5,000 units SC BID [facility] Last Admin: 02/21/18 10:24 Dose: 5,000 units Hydralazine HCl (Apresoline) 10 mg SLOW IVP Q4H PRN PRN Reason: SBP Greater Than 180 Last Admin: 02/17/18 05:02 Dose: 10 mg Hydralazine HCl (Apresoline) 25 mg PO BID [facility] Last Admin: 02/21/18 10:21 Dose: 25 mg Potassium Chloride 40 meq/ (Sodium Chloride) 270 mls @ 135 mls/hr IVPB ASDIR PRN PRN Reason: FOR SERUM K+ 2.5 - 3.5 Potassium Chloride 40 meq/ (Device) 100 mls @ 50 mls/hr IVPB ASDIR PRN PRN Reason: FOR SERUM K+ 2.5 - 3.5 Magnesium Sulfate 1 gm/ Sodium (Chloride) 102 mls @ 102 mls/hr IV PRN PRN PRN Reason: MAG LEVEL 1.4 - 2.0 Magnesium Sulfate 2 gm/ Device 100 mls @ 100 mls/hr IVPB ASDIR PRN PRN Reason: MAGNESIUM < 1.4 Potassium Phosphate 9 mmol/ (Sodium Chloride) 103 mls @ 25.75 mls/hr IVPB ASDIR PRN PRN Reason: Phosphate 1.0-1.8 Potassium Phosphate 12 mmol/ (Sodium Chloride) 254 mls @ 63.5 mls/hr IV ASDIR PRN PRN Reason: Serum phosphate 0.5-0.9 Potassium Phosphate 15 mmol/ (Sodium Chloride) 255 mls @ 63.75 mls/hr IV ASDIR PRN PRN Reason: Serum Phos < 0.5 Labetalol HCl (Normodyne) 10 mg SLOW IVP Q4H PRN PRN Reason: SBP Greater Than 180 Magnesium Oxide (Magnesium Oxide) 400 mg PO BIDPRN PRN PRN Reason: FOR SERUM MAG 1.4 - 2.0 Magnesium Oxide (Magnesium Oxide) 800 mg PO PRN PRN PRN Reason: FOR SERUM MAG < 1.4 Melatonin (Melatonin) 3 mg PO HS PRN PRN Reason: Insomnia Last Admin: 02/20/18 21:51 Dose: 3 mg Methylprednisolone Sodium Succinate (Solu-Medrol) 40 mg IVP BID [facility] Last Admin: 02/21/18 10:25 Dose: 40 mg Miscellaneous Medication (Phos-Nak) 1 pkt PO TIDPRN PRN PRN Reason: FOR PHOS LEVEL 1.0 - 1.8 Miscellaneous Medication (Phos-Nak) 2 pkt PO TIDPRN PRN PRN Reason: FOR PHOS LEVEL 0.5 - 1.0 Nitroglycerin (Nitrostat) 0.4 mg PO Q5MIN PRN PRN Reason: Chest Pain Discontinue Previous Narcotic Pain Medications And Benzodiazepines 1 each FS .ONE [facility] Stop: 03/19/18 15:40 Ccu Electrolyte (Replacement Protocol) 0 each FS PRN PRN PRN Reason: FOR ELECTROLYTE REPLACEMENT Ondansetron HCl (Zofran Odt) 4 mg PO Q6H PRN PRN Reason: Nausea/Vomiting Ondansetron HCl (Zofran) 4 mg IVP Q6H PRN PRN Reason: Nausea/Vomiting Polyethylene Glycol (Miralax) 17 gm PO BID [facility] Last Admin: 02/21/18 10:29 Dose: 17 gm Potassium Chloride (K-Dur) 40 meq PO ASDIR PRN PRN Reason: FOR SERUM K+ 2.5 - 3.5 Potassium Chloride (Klor-Con) 40 meq PER TUBE ASDIR PRN PRN Reason: FOR SERUM K+ 2.5-3.5 Last Admin: 02/19/18 09:40 Dose: 40 meq Senna/Docusate Sodium (Senokot S) 1 tab PO BID [facility] Last Admin: 02/21/18 10:24 Dose: 1 tab Sodium Chloride (Flush - Normal Saline) 10 ml IVF Q12HR [facility] Last Admin: 02/21/18 10:47 Dose: 10 ml Sodium Chloride (Flush - Normal Saline) 10 ml IVF PRN PRN PRN Reason: Saline Flush Trazodone HCl (Desyrel) 50 mg PO HS PRN PRN Reason: Insomnia
--- NOTE | 2018-02-21 15:38 | PRG ---
DATE OF SERVICE: 02/21/2018 SUBJECTIVE: Griselda looks much better than last time I saw him (I intubated him). OBJECTIVE: GENERAL: He is awake, alert, conversing with family. He walked to the bathroom and back today accor ding to the . VITAL SIGNS: He is afebrile, heart rate is 80, respiratory rate is 20, oximetry is 92% on room air, and blood pressure 117/62. LUNGS: Clear. HEART: Regular rhythm. ABDOMEN: Soft. LABORATORY DATA: White count 11.4, hemoglobin 8.8, and platelets 192,000. Sodium 141, potassium 3.3 , chloride 103, bicarbonate 22, BUN 77, and creatinine 2.06, which is improved from 2.42 two days ago . Calcium is down to 8.7. IMPRESSION: 1. Hypercalcemia malignancy. 2. Malignant pleural effusion, status post placement of PleurX catheter. 3. Status post near respiratory arrest requiring intubation, associated with vomiting while he is en cephalopathic. PLAN: Continue with therapy. Placement in a skilled unit. I explained to the that she can rima in him when he starts feeling short of breath, but does not have to drain his pleural space every day .
[2018-02-21] MEDS: traZODone HCl 50 MG TAB PO PRN (21:35)
[2018-02-21] MEDS: ALPRAZolam 0.25 MG TAB PO PRN (21:35)
[2018-02-21] MEDS: Acetaminophen 500 MG TAB PO PRN (23:48)
[2018-02-21] MEDS: Melatonin 3 MG TAB PO PRN (23:48)
[2018-02-22 04:37] LABS: #Eosinphils 0.2 thou/uL (0.0-0.7); #Lymphocytes 0.4 thou/uL (1.20-3.40); #Monocytes 1.1 thou/uL (0.11-0.59); #Neutrophils 10.4 thou/uL (1.40-6.50); %Eosinophils 1.3 % (0.0-10.0); %Lymphocytes 3.3 % (21.0-51.0); %Monocytes 9.3 % (0.0-10.0); %Neutrophils 86.2 % (42.0-75.0); Hemoglobin 9.4 g/dL (14.0-18.0); Mean Corpuscular HGB CONC 32.9 g/dL (32.0-36.0); Mean Corpuscular Hemoglobin 31.2 pg (27.0-31.0); Mean Corpuscular Volume 94.8 fL (78.0-98.0); Mean Platelet Volume 7.1 fL (7.4-10.4); Platelet Count 185 thou/uL (130-400); RBC Distribution Width 12.4 % (11.5-14.5); Red Blood Cell (RBC) Count 3.02 mill/uL (4.70-6.10); White Blood Cell (WBC) Count 12.1 thou/uL (4.8-10.8)
[2018-02-22 04:59] LABS: Anion Gap 16 mmol/L (10-20); BUN (Urea Nitrogen) 76 mg/dL (8.4-25.7); Calc. Creatinine Clearance 41 mL/min (70-130); Calcium 8.9 mg/dL (7.8-10.44); Carbon Dioxide 28 mmol/L (23-31); Chloride 102 mmol/L (98-107); Estimated GFR-MDRD 35; Glucose 83 mg/dL (80-115); Magnesium 1.8 mg/dL (1.6-2.6); Sodium 143 mmol/L (136-145)
[2018-02-22] MEDS: Acetaminophen 500 MG TAB PO PRN ×2 (09:16→17:57)
[2018-02-22] MEDS: Famotidine 20 MG TAB PO SCH (09:20)
[2018-02-22] MEDS: ALPRAZolam 0.25 MG TAB PO PRN ×2 (09:20→20:54)
[2018-02-22] MEDS: Folic Acid 1 MG TAB PO SCH ×2 (09:21→20:55)
[2018-02-22] MEDS: hydrALAZINE 25 MG TAB PO SCH ×2 (09:21→21:07)
[2018-02-22] MEDS: Carvedilol 6.25 MG TAB PO SCH ×2 (09:21→17:57)
[2018-02-22] MEDS: Furosemide 40 MG/4 ML VIAL SLOW IVP SCH (09:29)
[2018-02-22] MEDS: Heparin 5,000 UNITS/ML VIAL SC SCH ×2 (09:30→21:06)
--- NOTE | 2018-02-22 10:04 | PRG ---
DATE OF SERVICE: 02/22/2018 RENAL MEDICINE SUBJECTIVE: Mr. Villalobos is a 67-year-old white male who was seen the Renal Service for his acute kidne y injury and hypercalcemia. He has received Zometa and calcitonin in the past. This has improved hi s calcium. He was found to have metastatic cancer - he had positive cytology from his pleural effusi on. He was noted to be more sleepy today. He was somewhat slightly jaundiced. No complaints of chest pain, shortness of breath. OBJECTIVE: VITAL SIGNS: Blood pressure 114/56, heart rate 82, respiratory rate 20, O2 sat 92%. GENERAL: Sleepy, but arousable, not in overt distress. SKIN: Adequate turgor. HEENT: Slightly pale conjunctivae, anicteric sclerae. NECK: No neck mass, no carotid bruits, no JVD. CHEST: No deformities. LUNGS: Clear breath sounds. HEART: Normal sinus rhythm. No murmurs, no gallops, no rubs. ABDOMEN: Globular, soft, nontender, no masses. EXTREMITIES: No edema. MEDICATIONS: Medications of 02/22/2018 was reviewed. LABORATORY DATA: Laboratories of 02/22/2018; white count 12.1, hemoglobin 9.4, sodium 143, potassium 3, chloride 102, carbon dioxide 28, BUN 76, creatinine 1.92, calcium 8.9, magnesium 1.8. ASSESSMENT AND PLAN: 1. Acute kidney injury - consider the possibility of acute tubular necrosis. Renal function has slo wly been improving. Most recent creatinine is 1.9. He is also on a diuretic regimen. He seems to b e tolerating the current diuretic regimen. Continue supportive care. No indication for any dialytic intervention. 2. Hypercalcemia, resolved. 3. 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 Oncology is following. 4. Drowsiness/sleepiness. Liver function tests and ammonia level will be checked today. 5. Mild hypokalemia, p.r.n. potassium replacement.
[2018-02-22 10:34] LABS: ALT (SGPT) 87 U/L (8-55); AST (SGOT) 65 U/L (5-34); Albumin 3.2 g/dL (3.4-4.8); Alkaline Phosphatase 184 U/L (40-150); Bilirubin, Direct 0.5 mg/dL (0.1-0.3); Protein, Total 5.5 g/dL (5.8-8.1)
--- NOTE | 2018-02-22 13:03 | PDOC.PN ---
- Subjective Encounter Start Date: 02/22/18 Encounter Start Time: 13:02 Subjective: confused.. reports agitation overnight. - Objective Resuscitation Status: Resuscitation Status DNR:Do Not Resuscitate MAR Reviewed: Yes Vital Signs & Weight: Vital Signs (12 hours) Temp Pulse Resp BP BP BP Pulse Ox 02/22/18 11:40 98.3 F 77 18 110/56 L 90 L 02/22/18 09:21 82 114/56 L 02/22/18 08:04 92 L 02/22/18 08:02 82 20 92 L 02/22/18 08:00 98.9 F 82 18 92 L 02/22/18 07:30 98.9 F 84 18 154/72 H 92 L Weight Admit Weight 179 lb 7.3 oz Weight 174 lb 2.643 oz Most Recent Monitor Data Heart Rate from ECG 88 NIBP 122/62 NIBP BP-Mean 77 Respiration from ECG 16 SpO2 94 I&O: 02/21/18 02/22/18 02/23/18 06:59 06:59 06:59 Intake Total 1352 360 Output Total 3825 200 Balance -2473 160 Result Diagrams: 02/22/18 04:10 02/22/18 04:10 Additional Labs: Laboratory Tests 02/14/18 02/15/18 02/16/18 04:39 10:00 04:44 Creatinine 2.00 H Calcium 13.0 H* 12.9 H* 13.2 H* 02/17/18 02/18/18 02/19/18 05:10 04:56 04:55 Creatinine 2.39 H 2.42 H Calcium 13.1 H* 11.6 H 9.9 02/20/18 02/21/18 02/22/18 03:30 04:37 04:10 Creatinine 2.06 H 1.92 H Calcium 9.8 8.7 8.9 labs reviewed Phys Exam - Physical Examination Constitutional: NAD HEENT: PERRLA, moist MMs, sclera anicteric, oral pharynx no lesions apperas jaundiced Neck: no nodes, no JVD, supple, full ROM Respiratory: no wheezing, no rales, no rhonchi, clear to auscultation bilateral Cardiovascular: RRR, no significant murmur Gastrointestinal: soft, non-tender, no distention, positive bowel sounds Musculoskeletal: no edema, pulses present Neurological: non-focal, normal sensation, moves all 4 limbs Deviation from normal: confused and then would reply appropriately & follows commands Skin: no rash Dx/Plan (1) Aspiration pneumonia due to regurgitated food Code(s): J69.0 - PNEUMONITIS DUE TO INHALATION OF FOOD AND VOMIT Status: Acute Comment: s/p Rocephin.tapering Solumedrol (2) LIZETH (acute kidney injury) Code(s): N17.9 - ACUTE KIDNEY FAILURE, UNSPECIFIED Status: Acute Comment: stable (3) Hypercalcemia Code(s): E83.52 - HYPERCALCEMIA Status: Acute Comment: s/p calcitonin,IVF and Zometa X1.Discussed w Dr. guerra.PTH low. PTHrP normal.Vit D levels Normal (4) Pleural effusion Code(s): J90 - PLEURAL EFFUSION, NOT ELSEWHERE CLASSIFIED Status: Acute Comment: s/p R Thoracentesis.Cx negative so far.Pathology +ve for Metastatic Cancer. R Pleurx cathter in place (5) History of malignant neoplasm of tonsil Code(s): Z85.818 - PRSNL HX OF MALIG NEOPLM OF SITE OF LIP, ORAL CAV, & PHARYNX Status: Chronic Comment: s/p Chemo and XRT ,finished in 06/2017. (6) Hypokalemia Code(s): E87.6 - HYPOKALEMIA Status: Resolved (7) Fever Code(s): R50.9 - FEVER, UNSPECIFIED Status: Resolved Qualifiers: Fever type: unspecified Qualified Code(s): R50.9 - Fever, unspecified (8) S/P CABG x 3 Code(s): Z95.1 - PRESENCE OF AORTOCORONARY BYPASS GRAFT Status: Chronic (9) HLD (hyperlipidemia) Code(s): E78.5 - HYPERLIPIDEMIA, UNSPECIFIED Status: Chronic Comment: Lipitor 40mg HS (10) HTN (hypertension) Code(s): I10 - ESSENTIAL (PRIMARY) HYPERTENSION Status: Chronic Qualifiers: Hypertension type: essential hypertension Qualified Code(s): I10 - Essential (primary) hypertension Comment: stable, (11) PAD (peripheral artery disease) Code(s): I73.9 - PERIPHERAL VASCULAR DISEASE, UNSPECIFIED Status: Chronic Comment: s/p angioplasty in past, stable (12) Chronic diastolic CHF (congestive heart failure) Code(s): I50.32 - CHRONIC DIASTOLIC (CONGESTIVE) HEART FAILURE Status: Chronic (13) Acute respiratory failure with hypoxia Code(s): J96.01 - ACUTE RESPIRATORY FAILURE WITH HYPOXIA Status: Resolved Comment: improved.s/p IV Abx,IV steroids.extubated (14) Hypomagnesemia Code(s): E83.42 - HYPOMAGNESEMIA Status: Resolved - Plan plan discussed w/ family, PT/OT, out of bed/ambulate, DVT proph w/SCDs Unknown reason for confusion.? Hospital induced delirium. -: check LFT & Ammonia as pt appaers jaundiced & US showed some liver lesions -: renal Fx improving.Ca NL. -: reduce lasix from IV to PO. Likley ATN.I/Os adequate -: am labs. supportive care. OP PET to look for mets * .Rehab when arranged. * cont OT,PT * check UA Review of Systems - Review of Systems Constitutional: negative: fever, chills, sweats, weakness, malaise, other ENT: negative: Ear Pain, Ear Discharge, Nose Pain, Nose Discharge, Nose Congestion, Mouth Pain, Mouth Swelling, Throat Pain, Throat Swelling, Other Cardiovascular: negative: chest pain, palpitations, orthopnea, paroxysmal nocturnal dyspnea, edema, light headedness, other Gastrointestinal: negative: Nausea, Vomiting, Abdominal Pain, Diarrhea, Constipation, Melena, Hematochezia, Other Genitourinary: negative: Dysuria, Frequency, Incontinence, Hematuria, Retention , Other Musculoskeletal: negative: Neck Pain, Shoulder Pain, Arm Pain, Back Pain, Hand Pain, Leg Pain, Foot Pain, Other Neurological: negative: Weakness, Numbness, Incoordination, Change in Speech, Confusion, Seizures, Other Other: can not be relaibly obtained due to confusion - Medications/Allergies Allergies/Adverse Reactions: Allergies Allergy/AdvReac Type Severity Reaction Status Date / Time No Known Allergies Allergy Verified 02/12/18 20:47 Medications: Current Medications Acetaminophen (Tylenol) 1,000 mg PO Q6H PRN PRN Reason: Headache/Fever or Pain Last Admin: 02/22/18 09:16 Dose: 1,000 mg Al Hydroxide/Mg Hydroxide (Maalox) 30 ml PO Q6H PRN PRN Reason: Heartburn or Indigestion Albuterol/Ipratropium (Duoneb) 3 ml NEB [id number] [facility] Last Admin: 02/22/18 08:02 Dose: 3 ml Alprazolam (Xanax) 0.25 mg PO TIDPRN PRN PRN Reason: Anxiety Last Admin: 02/22/18 09:20 Dose: 0.25 mg Aspirin (Aspirin Chewable) 81 mg PO DAILY [facility] Last Admin: 02/22/18 09:21 Dose: 81 mg Bisacodyl (Dulcolax) [address] Q24H PRN PRN Reason: Constipation Carvedilol (Coreg) 6.25 mg PO BID-[facility] Last Admin: 02/22/18 09:21 Dose: 6.25 mg Famotidine (Pepcid) 20 mg PO DAILY [facility] Last Admin: 02/22/18 09:20 Dose: 20 mg Folic Acid (Folvite) 1 mg PO BID [facility] Last Admin: 02/22/18 09:21 Dose: 1 mg Furosemide (Lasix) 40 mg PO DAILY-[facility] Heparin Sodium (Porcine) (Heparin) 5,000 units SC BID [facility] Last Admin: 02/22/18 09:30 Dose: 5,000 units Hydralazine HCl (Apresoline) 10 mg SLOW IVP Q4H PRN PRN Reason: SBP Greater Than 180 Last Admin: 02/17/18 05:02 Dose: 10 mg Hydralazine HCl (Apresoline) 25 mg PO BID [facility] Last Admin: 02/22/18 09:21 Dose: 25 mg Potassium Chloride 40 meq/ (Sodium Chloride) 270 mls @ 135 mls/hr IVPB ASDIR PRN PRN Reason: FOR SERUM K+ 2.5 - 3.5 Potassium Chloride 40 meq/ (Device) 100 mls @ 50 mls/hr IVPB ASDIR PRN PRN Reason: FOR SERUM K+ 2.5 - 3.5 Magnesium Sulfate 1 gm/ Sodium (Chloride) 102 mls @ 102 mls/hr IV PRN PRN PRN Reason: MAG LEVEL 1.4 - 2.0 Magnesium Sulfate 2 gm/ Device 100 mls @ 100 mls/hr IVPB ASDIR PRN PRN Reason: MAGNESIUM < 1.4 Potassium Phosphate 9 mmol/ (Sodium Chloride) 103 mls @ 25.75 mls/hr IVPB ASDIR PRN PRN Reason: Phosphate 1.0-1.8 Potassium Phosphate 12 mmol/ (Sodium Chloride) 254 mls @ 63.5 mls/hr IV ASDIR PRN PRN Reason: Serum phosphate 0.5-0.9 Potassium Phosphate 15 mmol/ (Sodium Chloride) 255 mls @ 63.75 mls/hr IV ASDIR PRN PRN Reason: Serum Phos < 0.5 Labetalol HCl (Normodyne) 10 mg SLOW IVP Q4H PRN PRN Reason: SBP Greater Than 180 Magnesium Oxide (Magnesium Oxide) 400 mg PO BIDPRN PRN PRN Reason: FOR SERUM MAG 1.4 - 2.0 Magnesium Oxide (Magnesium Oxide) 800 mg PO PRN PRN PRN Reason: FOR SERUM MAG < 1.4 Melatonin (Melatonin) 3 mg PO HS PRN PRN Reason: Insomnia Last Admin: 02/21/18 23:48 Dose: 3 mg Methylprednisolone Sodium Succinate (Solu-Medrol) 40 mg IVP DAILY [facility] Last Admin: 02/22/18 09:30 Dose: 40 mg Miscellaneous Medication (Phos-Nak) 1 pkt PO TIDPRN PRN PRN Reason: FOR PHOS LEVEL 1.0 - 1.8 Miscellaneous Medication (Phos-Nak) 2 pkt PO TIDPRN PRN PRN Reason: FOR PHOS LEVEL 0.5 - 1.0 Nitroglycerin (Nitrostat) 0.4 mg PO Q5MIN PRN PRN Reason: Chest Pain Discontinue Previous Narcotic Pain Medications And Benzodiazepines 1 each FS .ONE [facility] Stop: 03/19/18 15:40 Ccu Electrolyte (Replacement Protocol) 0 each FS PRN PRN PRN Reason: FOR ELECTROLYTE REPLACEMENT Ondansetron HCl (Zofran Odt) 4 mg PO Q6H PRN PRN Reason: Nausea/Vomiting Ondansetron HCl (Zofran) 4 mg IVP Q6H PRN PRN Reason: Nausea/Vomiting Polyethylene Glycol (Miralax) 17 gm PO BID [facility] Last Admin: 02/21/18 21:35 Dose: Not Given Potassium Chloride (K-Dur) 40 meq PO ASDIR PRN PRN Reason: FOR SERUM K+ 2.5 - 3.5 Potassium Chloride (Klor-Con) 40 meq PER TUBE ASDIR PRN PRN Reason: FOR SERUM K+ 2.5-3.5 Last Admin: 02/19/18 09:40 Dose: 40 meq Senna/Docusate Sodium (Senokot S) 1 tab PO BID [facility] Last Admin: 02/21/18 21:35 Dose: Not Given Sodium Chloride (Flush - Normal Saline) 10 ml IVF Q12HR [facility] Last Admin: 02/22/18 09:29 Dose: 10 ml Sodium Chloride (Flush - Normal Saline) 10 ml IVF PRN PRN PRN Reason: Saline Flush Trazodone HCl (Desyrel) 50 mg PO HS PRN PRN Reason: Insomnia Last Admin: 02/21/18 21:35 Dose: 50 mg
[2018-02-22] MEDS: Polyethylene Glycol 3350 17 GM Packet PO SCH ×2 (13:42→21:08)
[2018-02-22] MEDS: Senokot S 8.6-50 MG TAB PO SCH ×2 (13:43→21:08)
[2018-02-22 13:49] LABS: Bilirubin Negative (Negative); Blood, Urine Negative (Negative); Clarity CLEAR (Clear); Glucose, Urine (Dipstick) Negative (Negative); Leukocyte Negative (Negative); Nitrite Negative (Negative); Protein, Urine (Dipstick) Negative (Neg-Trace); Urobilinogen 0.2 mg/dL (0.2-1.0); pH, Urine 5.5 (5.0-9.0)
[2018-02-22] MEDS ORDERED: Potassium Chloride 20 MEQ TAB PO SCH (19:45)
[2018-02-22] MEDS: traZODone HCl 50 MG TAB PO PRN (21:13)
[2018-02-22] MEDS: Melatonin 3 MG TAB PO PRN (22:30)
[2018-02-23] MEDS: Acetaminophen 500 MG TAB PO PRN ×2 (05:11→10:22)
[2018-02-23 05:54] LABS: Anion Gap 19 mmol/L (10-20); BUN (Urea Nitrogen) 67 mg/dL (8.4-25.7); Calc. Creatinine Clearance 47 mL/min (70-130); Calcium 8.4 mg/dL (7.8-10.44); Carbon Dioxide 24 mmol/L (23-31); Chloride 103 mmol/L (98-107); Estimated GFR-MDRD 41; Glucose 75 mg/dL (80-115); Magnesium 1.6 mg/dL (1.6-2.6); Potassium 3.5 mmol/L (3.5-5.1); Sodium 142 mmol/L (136-145)
[2018-02-23 06:12] LABS: Band 9 % (5-11); Eosinophils 1 % (0-10); Lymphocytes 5 % (21-51); MDiff Complete? YES; Mean Corpuscular Hemoglobin 30.1 pg (27.0-31.0); Mean Corpuscular Volume 91.3 fL (78.0-98.0); Mean Platelet Volume 7.5 fL (7.4-10.4); Metamyelocyte 1 % (0-0); Monocytes 4 % (0-10); Myelocyte 1 % (0-0); Neutrophil 79 % (42-75); Platelet Count 193 thou/uL (130-400); RBC Distribution Width 12.3 % (11.5-14.5); Red Blood Cell (RBC) Count 2.99 mill/uL (4.70-6.10); White Blood Cell (WBC) Count 14.9 thou/uL (4.8-10.8)
[2018-02-23] MEDS: Furosemide 40 MG TAB PO SCH (07:59)
[2018-02-23] MEDS: Polyethylene Glycol 3350 17 GM Packet PO SCH ×2 (07:59→21:39)
[2018-02-23] MEDS: Famotidine 20 MG TAB PO SCH (07:59)
[2018-02-23] MEDS: ALPRAZolam 0.25 MG TAB PO PRN ×3 (07:59→20:27)
[2018-02-23] MEDS: Folic Acid 1 MG TAB PO SCH ×2 (07:59→20:26)
[2018-02-23] MEDS: Carvedilol 6.25 MG TAB PO SCH ×2 (07:59→17:37)
[2018-02-23] MEDS: Heparin 5,000 UNITS/ML VIAL SC SCH ×2 (08:00→20:29)
[2018-02-23] MEDS: hydrALAZINE 25 MG TAB PO SCH ×2 (08:00→20:30)
[2018-02-23] MEDS: Senokot S 8.6-50 MG TAB PO SCH ×2 (08:00→20:26)
--- NOTE | 2018-02-23 09:22 | PRG ---
DATE OF SERVICE: 02/23/2018 This morning he remains encephalopathic. PHYSICAL EXAMINATION: VITAL SIGNS: Blood pressure 114/56, temperature 98, pulse 73, sats are 92% on room air. GENERAL: He is awake, alert, responsive. CHEST: Chest reveals decreased breath sounds, no wheezing. CARDIAC: Normal S1, S2, no gallops. ABDOMEN: Soft, no mass. LABORATORY: His calcium level is 8.6. A bone scan is being ordered. Creatinine 1.68. IMPRESSION: 1. Renal failure. 2. Metastatic head and neck cancer. 3. Right pleural effusion. 4. Anemia. 5. Encephalopathy. PLAN: Continue PT and supportive care, eventually rehab. Pulmonary will follow while in the hospital. He has a right-sided small bore chest tube in place.
--- NOTE | 2018-02-23 09:45 | PRG ---
DATE OF SERVICE: 02/23/2018 SUBJECTIVE: Mr. Villalobos is a 67-year-old white male with known history of tonsillar carcinoma, status post radiation/chemotherapy ? and initially admitted for severe hypercalcemia. Serum calcium is now much improved after calcitonin and Zometa. We are following this patient for his acute kidney injury . Acute kidney injury was thought to be initially from an acute tubular necrosis. Slowly improving with time. He still has occasional confusion. No complaints of chest pain or shortness of breath. PHYSICAL EXAMINATION: VITAL SIGNS: Blood pressure is 114/56, heart rate 84, respiratory rate 18, temperature 98.2, pulse o x 92%. GENERAL: Awake, comfortable, not in overt distress. SKIN: Adequate turgor. HEENT: Pinkish conjunctivae, anicteric sclerae. NECK: No neck mass, no carotid bruits, no JVD. CHEST: No deformities. LUNGS: Decreased breath sounds. HEART: Normal sinus rhythm. No murmur, no gallops, no rubs. ABDOMEN: Globular, soft, nontender. EXTREMITIES: Trace edema. MEDICATIONS: 02/23/2018 - Reviewed. LABORATORY DATA: 02/23/2018 - White count 14.9, hemoglobin 9, sodium 142, potassium 3.5, chloride 10 3, carbon dioxide 24, BUN 67, creatinine 1.68, glucose 75, calcium 8.4, magnesium 1.6. ASSESSMENT AND PLAN: 1. Acute kidney injury - superimposed acute tubular necrosis. Slowly improving over time. No indic ation for any dialytic intervention. He is also tolerating current diuretic regimen Lasix 40 mg tab once a day. 2. Hypercalcemia, resolved. 3. Tonsillar carcinoma with pulmonary mets. The patient is being followed by Oncology. A planned b one scan is due today. I agree with current management.
--- NOTE | 2018-02-23 12:07 | PDOC.PN ---
- Subjective Encounter Start Date: 02/23/18 Encounter Start Time: 07:00 -: old records requested/rev pt feels tired in hospital, he is doing well, he is still physically weak and needs assistance, no dyspnea,, he is on room air - Objective Resuscitation Status: Resuscitation Status DNR:Do Not Resuscitate MAR Reviewed: Yes Vital Signs & Weight: Vital Signs (12 hours) Temp Pulse Resp BP BP Pulse Ox 02/23/18 08:00 83 02/23/18 07:59 114/56 L 02/23/18 07:35 98.2 F 84 18 101/54 L 92 L 02/23/18 06:22 92 L 02/23/18 06:21 83 16 92 L Weight Admit Weight 179 lb 7.3 oz Weight 174 lb 2.643 oz Most Recent Monitor Data Heart Rate from ECG 88 NIBP 122/62 NIBP BP-Mean 77 Respiration from ECG 16 SpO2 94 I&O: 02/22/18 02/23/18 02/24/18 06:59 06:59 06:59 Intake Total 360 2010 Output Total 200 450 Balance 160 1560 Result Diagrams: 02/23/18 05:00 02/23/18 05:00 Additional Labs: Accuchecks 02/22/18 20:58 POC Glucose 162 H Radiology Reviewed by me: Yes Phys Exam - Physical Examination Constitutional: NAD HEENT: PERRLA, moist MMs, sclera anicteric Neck: no JVD, supple Respiratory: no wheezing, no rales, no rhonchi reduced air entry at right side, pleurex catheter in place Cardiovascular: RRR, no significant murmur, no rub Gastrointestinal: soft, non-tender, no distention, positive bowel sounds Musculoskeletal: no edema, pulses present Neurological: non-focal, normal sensation, moves all 4 limbs Lymphatic: no nodes Psychiatric: normal affect, A&O x 3 Skin: no rash, normal turgor Dx/Plan (1) Acute renal failure superimposed on stage 3 chronic kidney disease Code(s): N17.9 - ACUTE KIDNEY FAILURE, UNSPECIFIED; N18.3 - CHRONIC KIDNEY DISEASE, STAGE 3 (MODERATE) Status: Acute Comment: improved to baseline (2) Pleural effusion Code(s): J90 - PLEURAL EFFUSION, NOT ELSEWHERE CLASSIFIED Status: Acute Comment: s/p R Thoracentesis.Cx negative so far.Pathology +ve for Metastatic Cancer. R Pleurx cathter in place (3) CAD (coronary artery disease) Code(s): I25.10 - ATHSCL HEART DISEASE OF [place] CORONARY ARTERY W/O ANG PCTRS Status: Chronic Qualifiers: Coronary Disease-Associated Artery/Lesion type: [place] artery [place] vs. transplanted heart: [place] heart Associated angina: without angina Qualified Code(s): I25.10 - Atherosclerotic heart disease of [place] coronary artery without angina pectoris (4) Carotid stenosis, left Code(s): I65.22 - OCCLUSION AND STENOSIS OF LEFT CAROTID ARTERY Status: Chronic Comment: s/p angioplasty, stable (5) Chronic diastolic CHF (congestive heart failure) Code(s): I50.32 - CHRONIC DIASTOLIC (CONGESTIVE) HEART FAILURE Status: Chronic (6) HLD (hyperlipidemia) Code(s): E78.5 - HYPERLIPIDEMIA, UNSPECIFIED Status: Chronic Comment: Lipitor 40mg HS (7) HTN (hypertension) Code(s): I10 - ESSENTIAL (PRIMARY) HYPERTENSION Status: Chronic Qualifiers: Hypertension type: essential hypertension Qualified Code(s): I10 - Essential (primary) hypertension Comment: stable, (8) History of malignant neoplasm of tonsil Code(s): Z85.818 - PRSNL HX OF MALIG NEOPLM OF SITE OF LIP, ORAL CAV, & PHARYNX Status: Chronic Comment: s/p Chemo and XRT ,finished in 06/2017. (9) PAD (peripheral artery disease) Code(s): I73.9 - PERIPHERAL VASCULAR DISEASE, UNSPECIFIED Status: Chronic Comment: s/p angioplasty in past, stable (10) S/P CABG x 3 Code(s): Z95.1 - PRESENCE OF AORTOCORONARY BYPASS GRAFT Status: Chronic (11) Aspiration pneumonia due to regurgitated food Code(s): J69.0 - PNEUMONITIS DUE TO INHALATION OF FOOD AND VOMIT Status: Suspected Comment: (12) Acute respiratory failure with hypoxia Code(s): J96.01 - ACUTE RESPIRATORY FAILURE WITH HYPOXIA Status: Resolved Comment: improved.s/p IV Abx,IV steroids.extubated (13) Hypercalcemia of malignancy Code(s): E83.52 - HYPERCALCEMIA Status: Resolved (14) Hypokalemia Code(s): E87.6 - HYPOKALEMIA Status: Resolved (15) Hypomagnesemia Code(s): E83.42 - HYPOMAGNESEMIA Status: Resolved - Plan cont current plan of care, plan discussed w/ family * discussed with bedside * overall medically stable with current treatment * at this point waiting for his snu/rehab placement as he needs that for his weakness * medication reviewed as below * symptomatic treatment * expecting discharge soon. Review of Systems - Review of Systems Eyes: negative: Pain, Vision Change, Conjunctivae Inflammation, Eyelid Inflammation, Redness, Other ENT: negative: Ear Pain, Ear Discharge, Nose Pain, Nose Discharge, Nose Congestion, Mouth Pain, Mouth Swelling, Throat Pain, Throat Swelling, Other Respiratory: negative: Cough, Dry, Shortness of Breath, Hemoptysis, SOB with Excertion, Pleuritic Pain, Sputum, Wheezing Cardiovascular: negative: chest pain, palpitations, orthopnea, paroxysmal nocturnal dyspnea, edema, light headedness, other Gastrointestinal: negative: Nausea, Vomiting, Abdominal Pain, Diarrhea, Constipation, Melena, Hematochezia, Other Genitourinary: negative: Dysuria, Frequency, Incontinence, Hematuria, Retention , Other Musculoskeletal: negative: Neck Pain, Shoulder Pain, Arm Pain, Back Pain, Hand Pain, Leg Pain, Foot Pain, Other Skin: negative: Rash, Lesions, Adelfo, Bruising, Other - Medications/Allergies Allergies/Adverse Reactions: Allergies Allergy/AdvReac Type Severity Reaction Status Date / Time No Known Allergies Allergy Verified 02/12/18 20:47 Medications: Current Medications Acetaminophen (Tylenol) 1,000 mg PO Q6H PRN PRN Reason: Headache/Fever or Pain Last Admin: 02/23/18 10:22 Dose: 1,000 mg Al Hydroxide/Mg Hydroxide (Maalox) 30 ml PO Q6H PRN PRN Reason: Heartburn or Indigestion Albuterol/Ipratropium (Duoneb) 3 ml NEB [id number] SHANTHI Last Admin: 02/23/18 06:21 Dose: 3 ml Alprazolam (Xanax) 0.25 mg PO TIDPRN PRN PRN Reason: Anxiety Last Admin: 02/23/18 07:59 Dose: 0.25 mg Aspirin (Aspirin Chewable) 81 mg PO DAILY SHANTHI Last Admin: 02/23/18 08:00 Dose: 81 mg Bisacodyl (Dulcolax) 10 mg GA Q24H PRN PRN Reason: Constipation Carvedilol (Coreg) 6.25 mg PO BID-WM [facility] Last Admin: 02/23/18 07:59 Dose: 6.25 mg Famotidine (Pepcid) 20 mg PO DAILY [facility] Last Admin: 02/23/18 07:59 Dose: 20 mg Folic Acid (Folvite) 1 mg PO BID [facility] Last Admin: 02/23/18 07:59 Dose: 1 mg Furosemide (Lasix) 40 mg PO DAILY-AC [facility] Last Admin: 02/23/18 07:59 Dose: 40 mg Heparin Sodium (Porcine) (Heparin) 5,000 units SC BID [facility] Last Admin: 02/23/18 08:00 Dose: 5,000 units Hydralazine HCl (Apresoline) 10 mg SLOW IVP Q4H PRN PRN Reason: SBP Greater Than 180 Last Admin: 02/17/18 05:02 Dose: 10 mg Hydralazine HCl (Apresoline) 25 mg PO BID [facility] Last Admin: 02/23/18 08:00 Dose: 25 mg Labetalol HCl (Normodyne) 10 mg SLOW IVP Q4H PRN PRN Reason: SBP Greater Than 180 Melatonin (Melatonin) 3 mg PO HS PRN PRN Reason: Insomnia Last Admin: 02/22/18 22:30 Dose: 3 mg Nitroglycerin (Nitrostat) 0.4 mg PO Q5MIN PRN PRN Reason: Chest Pain Discontinue Previous Narcotic Pain Medications And Benzodiazepines 1 each FS .ONE [facility] Stop: 03/19/18 15:40 Ondansetron HCl (Zofran Odt) 4 mg PO Q6H PRN PRN Reason: Nausea/Vomiting Ondansetron HCl (Zofran) 4 mg IVP Q6H PRN PRN Reason: Nausea/Vomiting Polyethylene Glycol (Miralax) 17 gm PO BID [facility] Last Admin: 02/23/18 07:59 Dose: 17 gm Senna/Docusate Sodium (Senokot S) 1 tab PO BID [facility] Last Admin: 02/23/18 08:00 Dose: 1 tab Sodium Chloride (Flush - Normal Saline) 10 ml IVF Q12HR [facility] Last Admin: 02/23/18 08:00 Dose: 10 ml Sodium Chloride (Flush - Normal Saline) 10 ml IVF PRN PRN PRN Reason: Saline Flush Trazodone HCl (Desyrel) 50 mg PO HS PRN PRN Reason: Insomnia Last Admin: 02/22/18 21:13 Dose: 50 mg
--- NOTE | 2018-02-23 17:51 | NM ---
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 RADIOPHARMACEUTICAL: 30.6 mCi technetium-99m MDP injected intravenously. FINDINGS: There are foci of increased uptake in the left parietal bone, left supraorbital rim, right humeral sh aft, proximal femurs, and heterogeneity with probably increased foci of uptake in the ribs. Tracer ex cretion through the kidneys is within normal limits. IMPRESSION: Findings are suspicious for osseous metastatic disease. POS: ANNE
[2018-02-23] MEDS: traZODone HCl 50 MG TAB PO PRN (20:27)
[2018-02-23] MEDS: Melatonin 3 MG TAB PO PRN (21:02)
[2018-02-24] MEDS: Acetaminophen 500 MG TAB PO PRN (02:44)
[2018-02-24 05:22] LABS: Anion Gap 20 mmol/L (10-20); BUN (Urea Nitrogen) 66 mg/dL (8.4-25.7); Calc. Creatinine Clearance 53 mL/min (70-130); Calcium 8.5 mg/dL (7.8-10.44); Carbon Dioxide 24 mmol/L (23-31); Chloride 103 mmol/L (98-107); Estimated GFR-MDRD 47; Glucose 92 mg/dL (80-115); Magnesium 1.7 mg/dL (1.6-2.6); Potassium 3.5 mmol/L (3.5-5.1); Sodium 143 mmol/L (136-145)
[2018-02-24 06:04] LABS: Band 5 % (5-11); Hemoglobin 8.2 g/dL (14.0-18.0); Lymphocytes 4 % (21-51); MDiff Complete? YES; Mean Corpuscular HGB CONC 32.4 g/dL (32.0-36.0); Mean Corpuscular Hemoglobin 29.5 pg (27.0-31.0); Mean Platelet Volume 7.2 fL (7.4-10.4); Metamyelocyte 1 % (0-0); Monocytes 7 % (0-10); Neutrophil 83 % (42-75); Platelet Count 193 thou/uL (130-400); RBC Distribution Width 12.5 % (11.5-14.5); Red Blood Cell (RBC) Count 2.78 mill/uL (4.70-6.10); White Blood Cell (WBC) Count 15.1 thou/uL (4.8-10.8)
--- NOTE | 2018-02-24 08:34 | PRG ---
DATE OF SERVICE: 02/24/2018 SUBJECTIVE: Mr. 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 He is being followed by Oncology. He has had a thoracentesis and chest tu be placement previously. We are following him up for his renal dysfunction as well as hypercalcemia. Hypercalcemia has resolved with Zometa and calcitonin. Renal function is slowly improving over rudi e. He has a superimposed acute tubular necrosis this morning. No other complaints, no chest pain or shortness of breath. He still has intermittent confusion. PHYSICAL EXAMINATION: VITAL SIGNS: Blood pressure is 119/63, heart rate 79, respiratory rate 22, temperature 98.7, pulse o ximetry 92%. GENERAL: Noted to be awake, confused, not in overt distress. SKIN: Adequate turgor. HEENT: He has slightly pale conjunctivae, anicteric sclerae. NECK: No neck mass, no carotid bruits, no JVD. CHEST: No deformities. LUNGS: Decreased breath sounds. HEART: Normal sinus rhythm. No murmur, no gallops, no rubs. ABDOMEN: Globular, soft, nontender, no masses. EXTREMITIES: No edema, no deformities. MEDICATIONS: 02/24/2018 - Reviewed. LABORATORY DATA: 02/24/2018 - White count 15.1, hemoglobin 8.2. Sodium 143, potassium 3.5, chloride 103, carbon dioxide 24, BUN 66, creatinine 1.48, glucose 92, calcium 8.5, magnesium 1.7. Bone scan - 02/23/2018 - suspicious for osseous metastatic disease. ASSESSMENT AND PLAN: 1. Acute kidney injury - superimposed acute tubular necrosis. Slowly improving over time. Continue supportive care. No indication for any dialytic intervention. Creatinine is now noted to be much i mproved. In addition, he is tolerating the current diuretic regimen of Lasix 40 mg tab once a day. 2. Tonsillar carcinoma - metastatic lesions noted. Oncology is following. 3. Anemia. Continue to observe, p.r.n. blood transfusion. 4. Hypercalcemia, resolved. 5. I agree with current management. Continue supportive care. We will be rechecking base met and C BC in a.m.
[2018-02-24] MEDS: Cyanocobalamin (Vitamin B-12) 1,000 MCG TAB PO SCH (09:35)
[2018-02-24] MEDS: Senokot S 8.6-50 MG TAB PO SCH ×2 (09:35→21:56)
[2018-02-24] MEDS: Heparin 5,000 UNITS/ML VIAL SC SCH ×2 (09:35→21:57)
[2018-02-24] MEDS: Furosemide 40 MG TAB PO SCH (09:36)
[2018-02-24] MEDS: Famotidine 20 MG TAB PO SCH (09:36)
[2018-02-24] MEDS: hydrALAZINE 25 MG TAB PO SCH ×2 (09:36→21:52)
[2018-02-24] MEDS: Carvedilol 6.25 MG TAB PO SCH ×2 (09:36→17:10)
[2018-02-24] MEDS: Folic Acid 1 MG TAB PO SCH ×2 (09:37→21:56)
[2018-02-24] MEDS: Polyethylene Glycol 3350 17 GM Packet PO SCH ×2 (09:37→21:57)
--- NOTE | 2018-02-24 09:52 | PRG ---
DATE OF SERVICE: 02/24/2018 This morning he is still encephalopathic. His bone scan shows extensive metastatic disease. PHYSICAL EXAMINATION: VITAL SIGNS: Sats are 92% on room air, respiration 22, temperature 98, blood pressure 196/63. CHEST: Chest revealed decreased breath sounds, no wheezing. CARDIAC: Normal S1, S2, no gallops. . ABDOMEN: Soft. No masses. Calcium 8.5. Creatinine 1.48. White count is 15,000, H&H 8 and 26. IMPRESSION: 1. Metastatic squamous cell carcinoma. 2. Hypercalcemia. 3. Encephalopathy. 4. Renal failure. PLAN: Pulmonary arroyo he is stable enough to be discharged home as per family and Oncology. Comfort care.
[2018-02-24] MEDS: HYDROcodone/Acetaminophen 5/325 mg Tablet PO PRN ×3 (10:12→22:07)
--- NOTE | 2018-02-24 11:12 | PDOC.PN ---
- Subjective Encounter Start Date: 02/24/18 Encounter Start Time: 07:00 Patient seen and examined. No new complaints. No overnight events - Objective Resuscitation Status: Resuscitation Status DNR:Do Not Resuscitate MAR Reviewed: Yes Vital Signs & Weight: Vital Signs (12 hours) Temp Pulse Resp BP BP Pulse Ox 02/24/18 09:36 79 119/63 02/24/18 07:33 98.7 F 79 22 H 119/63 92 L Weight Admit Weight 179 lb 7.3 oz Weight 174 lb 2.643 oz Most Recent Monitor Data Heart Rate from ECG 88 NIBP 122/62 NIBP BP-Mean 77 Respiration from ECG 16 SpO2 94 I&O: 02/23/18 02/24/18 02/25/18 06:59 06:59 06:59 Intake Total 2009 1530 Output Total 450 Balance 1560 1530 Result Diagrams: 02/24/18 04:52 02/24/18 04:52 Phys Exam - Physical Examination Constitutional: NAD HEENT: PERRLA, moist MMs, sclera anicteric Neck: no JVD, supple Respiratory: no wheezing, no rales, no rhonchi pleurex catheter in place Cardiovascular: RRR, no significant murmur, no rub Gastrointestinal: soft, non-tender, no distention, positive bowel sounds Musculoskeletal: no edema, pulses present Neurological: non-focal, normal sensation, moves all 4 limbs Psychiatric: normal affect, A&O x 3 Skin: no rash, normal turgor Dx/Plan (1) Acute renal failure superimposed on stage 3 chronic kidney disease Code(s): N17.9 - ACUTE KIDNEY FAILURE, UNSPECIFIED; N18.3 - CHRONIC KIDNEY DISEASE, STAGE 3 (MODERATE) Status: Acute Comment: improved to baseline (2) Pleural effusion Code(s): J90 - PLEURAL EFFUSION, NOT ELSEWHERE CLASSIFIED Status: Acute Comment: s/p R Thoracentesis.Cx negative so far.Pathology +ve for Metastatic Cancer. R Pleurx cathter in place (3) CAD (coronary artery disease) Code(s): I25.10 - ATHSCL HEART DISEASE OF [place] CORONARY ARTERY W/O ANG PCTRS Status: Chronic Qualifiers: Coronary Disease-Associated Artery/Lesion type: [place] artery [place] vs. transplanted heart: [place] heart Associated angina: without angina Qualified Code(s): I25.10 - Atherosclerotic heart disease of [place] coronary artery without angina pectoris (4) Carotid stenosis, left Code(s): I65.22 - OCCLUSION AND STENOSIS OF LEFT CAROTID ARTERY Status: Chronic Comment: s/p angioplasty, stable (5) Chronic diastolic CHF (congestive heart failure) Code(s): I50.32 - CHRONIC DIASTOLIC (CONGESTIVE) HEART FAILURE Status: Chronic (6) HLD (hyperlipidemia) Code(s): E78.5 - HYPERLIPIDEMIA, UNSPECIFIED Status: Chronic Comment: Lipitor 40mg HS (7) HTN (hypertension) Code(s): I10 - ESSENTIAL (PRIMARY) HYPERTENSION Status: Chronic Qualifiers: Hypertension type: essential hypertension Qualified Code(s): I10 - Essential (primary) hypertension Comment: stable, (8) History of malignant neoplasm of tonsil Code(s): Z85.818 - PRSNL HX OF MALIG NEOPLM OF SITE OF LIP, ORAL CAV, & PHARYNX Status: Chronic Comment: s/p Chemo and XRT ,finished in 06/2017. (9) PAD (peripheral artery disease) Code(s): I73.9 - PERIPHERAL VASCULAR DISEASE, UNSPECIFIED Status: Chronic Comment: s/p angioplasty in past, stable (10) S/P CABG x 3 Code(s): Z95.1 - PRESENCE OF AORTOCORONARY BYPASS GRAFT Status: Chronic (11) Aspiration pneumonia due to regurgitated food Code(s): J69.0 - PNEUMONITIS DUE TO INHALATION OF FOOD AND VOMIT Status: Suspected Comment: (12) Acute respiratory failure with hypoxia Code(s): J96.01 - ACUTE RESPIRATORY FAILURE WITH HYPOXIA Status: Resolved Comment: improved.s/p IV Abx,IV steroids.extubated (13) Hypercalcemia of malignancy Code(s): E83.52 - HYPERCALCEMIA Status: Resolved (14) Hypokalemia Code(s): E87.6 - HYPOKALEMIA Status: Resolved (15) Hypomagnesemia Code(s): E83.42 - HYPOMAGNESEMIA Status: Resolved (16) Pain from bone metastases Code(s): G89.3 - NEOPLASM RELATED PAIN (ACUTE) (CHRONIC); C79.51 - SECONDARY MALIGNANT NEOPLASM OF BONE Status: Acute - Plan cont current plan of care, plan discussed w/ family, PT/OT, social work supervisor, respiratory therapy * discussed with * discussed with manager case * await placement pending insurance auth * medication reviewed as below * symptomatic treatment. Review of Systems - Review of Systems Eyes: negative: Pain, Vision Change, Conjunctivae Inflammation, Eyelid Inflammation, Redness, Other ENT: negative: Ear Pain, Ear Discharge, Nose Pain, Nose Discharge, Nose Congestion, Mouth Pain, Mouth Swelling, Throat Pain, Throat Swelling, Other Respiratory: negative: Cough, Dry, Shortness of Breath, Hemoptysis, SOB with Excertion, Pleuritic Pain, Sputum, Wheezing Cardiovascular: negative: chest pain, palpitations, orthopnea, paroxysmal nocturnal dyspnea, edema, light headedness, other Gastrointestinal: negative: Nausea, Vomiting, Abdominal Pain, Diarrhea, Constipation, Melena, Hematochezia, Other Genitourinary: negative: Dysuria, Frequency, Incontinence, Hematuria, Retention , Other Musculoskeletal: Leg Pain. negative: Neck Pain, Shoulder Pain, Arm Pain, Back Pain, Hand Pain, Foot Pain, Other Skin: negative: Rash, Lesions, Adelfo, Bruising, Other - Medications/Allergies Allergies/Adverse Reactions: Allergies Allergy/AdvReac Type Severity Reaction Status Date / Time No Known Allergies Allergy Verified 02/12/18 20:47 Medications: Current Medications Acetaminophen (Tylenol) 1,000 mg PO Q6H PRN PRN Reason: Headache/Fever or Pain Last Admin: 02/24/18 02:44 Dose: 1,000 mg Hydrocodone Bitart/Acetaminophen ([place] 5/325) 1 tab PO Q4H PRN PRN Reason: Breakthrough Pain Last Admin: 02/24/18 10:12 Dose: 1 tab Al Hydroxide/Mg Hydroxide (Maalox) 30 ml PO Q6H PRN PRN Reason: Heartburn or Indigestion Albuterol/Ipratropium (Duoneb) 3 ml NEB [id number] SHANTHI Last Admin: 02/24/18 06:49 Dose: Not Given Alprazolam (Xanax) 0.25 mg PO TIDPRN PRN PRN Reason: Anxiety Last Admin: 02/23/18 20:27 Dose: 0.25 mg Aspirin (Aspirin Chewable) 81 mg PO DAILY SHANTHI Last Admin: 02/24/18 09:36 Dose: 81 mg Bisacodyl (Dulcolax) 10 mg VT Q24H PRN PRN Reason: Constipation Carvedilol (Coreg) 6.25 mg PO BID-WM [facility] Last Admin: 02/24/18 09:36 Dose: 6.25 mg Cyanocobalamin (Vitamin B-12) 1,000 mcg PO DAILY [facility] Last Admin: 02/24/18 09:35 Dose: 1,000 mcg Famotidine (Pepcid) 20 mg PO DAILY [facility] Last Admin: 02/24/18 09:36 Dose: 20 mg Folic Acid (Folvite) 1 mg PO BID [facility] Last Admin: 02/24/18 09:37 Dose: 1 mg Furosemide (Lasix) 40 mg PO DAILY-AC [facility] Last Admin: 02/24/18 09:36 Dose: 40 mg Heparin Sodium (Porcine) (Heparin) 5,000 units SC BID [facility] Last Admin: 02/24/18 09:35 Dose: 5,000 units Hydralazine HCl (Apresoline) 10 mg SLOW IVP Q4H PRN PRN Reason: SBP Greater Than 180 Last Admin: 02/17/18 05:02 Dose: 10 mg Hydralazine HCl (Apresoline) 25 mg PO BID [facility] Last Admin: 02/24/18 09:36 Dose: 25 mg Labetalol HCl (Normodyne) 10 mg SLOW IVP Q4H PRN PRN Reason: SBP Greater Than 180 Melatonin (Melatonin) 3 mg PO HS PRN PRN Reason: Insomnia Last Admin: 02/23/18 21:02 Dose: 3 mg Nitroglycerin (Nitrostat) 0.4 mg PO Q5MIN PRN PRN Reason: Chest Pain Discontinue Previous Narcotic Pain Medications And Benzodiazepines 1 each FS .ONE [facility] Stop: 03/19/18 15:40 Ondansetron HCl (Zofran Odt) 4 mg PO Q6H PRN PRN Reason: Nausea/Vomiting Ondansetron HCl (Zofran) 4 mg IVP Q6H PRN PRN Reason: Nausea/Vomiting Polyethylene Glycol (Miralax) 17 gm PO BID [facility] Last Admin: 02/24/18 09:37 Dose: Not Given Senna/Docusate Sodium (Senokot S) 1 tab PO BID [facility] Last Admin: 02/24/18 09:35 Dose: 1 tab Sodium Chloride (Flush - Normal Saline) 10 ml IVF Q12HR [facility] Last Admin: 02/24/18 09:37 Dose: 10 ml Sodium Chloride (Flush - Normal Saline) 10 ml IVF PRN PRN PRN Reason: Saline Flush Trazodone HCl (Desyrel) 50 mg PO HS PRN PRN Reason: Insomnia Last Admin: 02/23/18 20:27 Dose: 50 mg
[2018-02-24] MEDS ORDERED: traMADol HCl 50 MG TAB PO PRN (16:43)
[2018-02-24] MEDS: traZODone HCl 50 MG TAB PO PRN (21:53)
[2018-02-24] MEDS: ALPRAZolam 0.25 MG TAB PO PRN (21:56)
[2018-02-25] MEDS: HYDROcodone/Acetaminophen 10/325 mg Tablet PO PRN ×3 (02:05→15:55)
[2018-02-25 06:14] LABS: Anion Gap 17 mmol/L (10-20); BUN (Urea Nitrogen) 57 mg/dL (8.4-25.7); Calc. Creatinine Clearance 53 mL/min (70-130); Calcium 9.2 mg/dL (7.8-10.44); Carbon Dioxide 29 mmol/L (23-31); Chloride 104 mmol/L (98-107); Estimated GFR-MDRD 47; Glucose 83 mg/dL (80-115); Magnesium 1.6 mg/dL (1.6-2.6); Potassium 3.6 mmol/L (3.5-5.1); Sodium 146 mmol/L (136-145)
[2018-02-25 06:44] LABS: Hemoglobin 9.5 g/dL (14.0-18.0); Mean Corpuscular HGB CONC 32.3 g/dL (32.0-36.0); Mean Corpuscular Hemoglobin 29.6 pg (27.0-31.0); Mean Corpuscular Volume 91.7 fL (78.0-98.0); Mean Platelet Volume 6.9 fL (7.4-10.4); Platelet Count 254 thou/uL (130-400); RBC Distribution Width 12.8 % (11.5-14.5); Red Blood Cell (RBC) Count 3.22 mill/uL (4.70-6.10); White Blood Cell (WBC) Count 16.2 thou/uL (4.8-10.8)
[2018-02-25 06:56] LABS: Band 8 % (5-11); Eosinophils 1 % (0-10); Lymphocytes 5 % (21-51); MDiff Complete? YES; Monocytes 12 % (0-10); Neutrophil 74 % (42-75); PLT Morphology Comment Appears Adequate; RBC Morphology Normal
[2018-02-25] MEDS: hydrALAZINE 25 MG TAB PO SCH ×2 (07:49→21:53)
[2018-02-25] MEDS: Polyethylene Glycol 3350 17 GM Packet PO SCH ×2 (07:50→22:00)
[2018-02-25] MEDS: Folic Acid 1 MG TAB PO SCH ×2 (07:50→21:53)
[2018-02-25] MEDS: Carvedilol 6.25 MG TAB PO SCH ×2 (07:50→15:55)
[2018-02-25] MEDS: Famotidine 20 MG TAB PO SCH (07:50)
[2018-02-25] MEDS: Furosemide 40 MG TAB PO SCH (07:50)
[2018-02-25] MEDS: Senokot S 8.6-50 MG TAB PO SCH ×2 (07:50→21:53)
[2018-02-25] MEDS: Cyanocobalamin (Vitamin B-12) 1,000 MCG TAB PO SCH (07:51)
[2018-02-25] MEDS: Heparin 5,000 UNITS/ML VIAL SC SCH ×2 (07:59→21:52)
--- NOTE | 2018-02-25 10:24 | PRG ---
DATE OF SERVICE: 02/25/2018 RENAL MEDICINE SUBJECTIVE: Mr. Villalobos is a 67-year-old white male being followed by the Renal Service for his acute kidney injury. This is secondary to presumed acute tubular necrosis. Renal function has been improv ing over time. He has also known history of tonsillar carcinoma with diffuse metastasis. Oncology i s following. He was also seen for the hypercalcemia, which is now resolved. However, the patient co ntinues to be having intermittent confusion. No acute chest pain or shortness of breath. PHYSICAL EXAMINATION: VITAL SIGNS: Blood pressure is 183/85, heart rate 102, respiratory rate 20, temperature 97.7, pulse ox 92%. GENERAL: Noted to be awake, supine, comfortable, not in overt distress, confused. SKIN: Adequate turgor. HEENT: Slightly pale conjunctivae, anicteric sclerae. NECK: No neck mass, no carotid bruits, no JVD. CHEST: No deformities. LUNGS: Decreased breath sounds. HEART: Normal sinus rhythm. No murmur, no gallops, no rubs. ABDOMEN: Globular, soft, nontender, no masses. EXTREMITIES: Trace edema. MEDICATIONS: 02/25/2018, was reviewed. LABORATORY DATA: 02/25/2018, white count 16.2, hemoglobin 9.5. Sodium 146, potassium 3.6, chloride 104, carbon dioxide 29, BUN 57, creatinine 1.5, glucose 83, calcium 9.2, magnesium 1.6. ASSESSMENT AND PLAN: 1. Acute kidney injury - most likely from acute tubular necrosis. Stabilizing renal function. I no herminio the creatinine is slightly higher today at 1.5. Yesterday it was 1.48. Due to the decreased p.o . intake of this patient, my plan is to discontinue the furosemide. 2. Tonsillar carcinoma with diffuse metastasis. Oncology is following. Continue supportive care. 3. Hypercalcemia, resolved. Recheck base met and CBC in a.m.
--- NOTE | 2018-02-25 11:10 | PDOC.PN ---
- Subjective Encounter Start Date: 02/25/18 Encounter Start Time: 07:00 Patient seen and examined. No new complaints. No overnight events - Objective Resuscitation Status: Resuscitation Status DNR:Do Not Resuscitate MAR Reviewed: Yes Vital Signs & Weight: Vital Signs (12 hours) Temp Pulse Resp BP Pulse Ox 02/25/18 08:07 97.7 F 102 H 20 183/85 H 92 L 02/25/18 08:00 97.7 F 102 H 20 02/25/18 07:49 85 02/25/18 07:42 85 20 93 L Weight Admit Weight 179 lb 7.3 oz Weight 174 lb 2.643 oz Most Recent Monitor Data Heart Rate from ECG 88 NIBP 122/62 NIBP BP-Mean 77 Respiration from ECG 16 SpO2 94 I&O: 02/24/18 02/25/18 02/26/18 06:59 06:59 06:59 Intake Total 1530 500 Output Total 900 Balance 1530 -400 Result Diagrams: 02/25/18 05:40 02/25/18 05:40 Phys Exam - Physical Examination Constitutional: NAD HEENT: PERRLA, moist MMs, sclera anicteric Neck: no JVD, supple Respiratory: no wheezing, no rales, no rhonchi Cardiovascular: RRR, no significant murmur, no rub Gastrointestinal: soft, non-tender, no distention, positive bowel sounds Musculoskeletal: no edema, pulses present Neurological: non-focal, normal sensation, moves all 4 limbs Lymphatic: no nodes Psychiatric: normal affect, A&O x 3 Skin: no rash, normal turgor Dx/Plan (1) Acute renal failure superimposed on stage 3 chronic kidney disease Code(s): N17.9 - ACUTE KIDNEY FAILURE, UNSPECIFIED; N18.3 - CHRONIC KIDNEY DISEASE, STAGE 3 (MODERATE) Status: Acute Comment: improved to baseline (2) Pleural effusion Code(s): J90 - PLEURAL EFFUSION, NOT ELSEWHERE CLASSIFIED Status: Acute Comment: s/p R Thoracentesis.Cx negative so far.Pathology +ve for Metastatic Cancer. R Pleurx cathter in place (3) CAD (coronary artery disease) Code(s): I25.10 - ATHSCL HEART DISEASE OF [place] CORONARY ARTERY W/O ANG PCTRS Status: Chronic Qualifiers: Coronary Disease-Associated Artery/Lesion type: [place] artery [place] vs. transplanted heart: [place] heart Associated angina: without angina Qualified Code(s): I25.10 - Atherosclerotic heart disease of [place] coronary artery without angina pectoris (4) Carotid stenosis, left Code(s): I65.22 - OCCLUSION AND STENOSIS OF LEFT CAROTID ARTERY Status: Chronic Comment: s/p angioplasty, stable (5) Chronic diastolic CHF (congestive heart failure) Code(s): I50.32 - CHRONIC DIASTOLIC (CONGESTIVE) HEART FAILURE Status: Chronic (6) HLD (hyperlipidemia) Code(s): E78.5 - HYPERLIPIDEMIA, UNSPECIFIED Status: Chronic Comment: Lipitor 40mg HS (7) HTN (hypertension) Code(s): I10 - ESSENTIAL (PRIMARY) HYPERTENSION Status: Chronic Qualifiers: Hypertension type: essential hypertension Qualified Code(s): I10 - Essential (primary) hypertension Comment: stable, (8) History of malignant neoplasm of tonsil Code(s): Z85.818 - PRSNL HX OF MALIG NEOPLM OF SITE OF LIP, ORAL CAV, & PHARYNX Status: Chronic Comment: s/p Chemo and XRT ,finished in 06/2017. (9) PAD (peripheral artery disease) Code(s): I73.9 - PERIPHERAL VASCULAR DISEASE, UNSPECIFIED Status: Chronic Comment: s/p angioplasty in past, stable (10) S/P CABG x 3 Code(s): Z95.1 - PRESENCE OF AORTOCORONARY BYPASS GRAFT Status: Chronic (11) Aspiration pneumonia due to regurgitated food Code(s): J69.0 - PNEUMONITIS DUE TO INHALATION OF FOOD AND VOMIT Status: Suspected Comment: (12) Acute respiratory failure with hypoxia Code(s): J96.01 - ACUTE RESPIRATORY FAILURE WITH HYPOXIA Status: Resolved Comment: improved.s/p IV Abx,IV steroids.extubated (13) Hypercalcemia of malignancy Code(s): E83.52 - HYPERCALCEMIA Status: Resolved (14) Hypokalemia Code(s): E87.6 - HYPOKALEMIA Status: Resolved (15) Hypomagnesemia Code(s): E83.42 - HYPOMAGNESEMIA Status: Resolved (16) Pain from bone metastases Code(s): G89.3 - NEOPLASM RELATED PAIN (ACUTE) (CHRONIC); C79.51 - SECONDARY MALIGNANT NEOPLASM OF BONE Status: Acute - Plan cont current plan of care, PT/OT, social media director * medication reviewed as below * symptomatic treatment. * await placement to snu/rehab pending insurance approval * his pain controlled * lasix discontinued Review of Systems - Review of Systems Constitutional: negative: fever, chills, sweats, weakness, malaise, other ENT: negative: Ear Pain, Ear Discharge, Nose Pain, Nose Discharge, Nose Congestion, Mouth Pain, Mouth Swelling, Throat Pain, Throat Swelling, Other Respiratory: negative: Cough, Dry, Shortness of Breath, Hemoptysis, SOB with Excertion, Pleuritic Pain, Sputum, Wheezing Cardiovascular: negative: chest pain, palpitations, orthopnea, paroxysmal nocturnal dyspnea, edema, light headedness, other Gastrointestinal: negative: Nausea, Vomiting, Abdominal Pain, Diarrhea, Constipation, Melena, Hematochezia, Other Genitourinary: negative: Dysuria, Frequency, Incontinence, Hematuria, Retention , Other Skin: negative: Rash, Lesions, Adelfo, Bruising, Other - Medications/Allergies Allergies/Adverse Reactions: Allergies Allergy/AdvReac Type Severity Reaction Status Date / Time No Known Allergies Allergy Verified 02/12/18 20:47 Medications: Current Medications Acetaminophen (Tylenol) 1,000 mg PO Q6H PRN PRN Reason: Headache/Fever or Pain Last Admin: 02/24/18 02:44 Dose: 1,000 mg Hydrocodone Bitart/Acetaminophen ([place] 5/325) 1 tab PO Q4H PRN PRN Reason: Breakthrough Pain Last Admin: 02/24/18 22:07 Dose: 1 tab Hydrocodone Bitart/Acetaminophen ([place] 10/325) 1 tab PO Q4H PRN PRN Reason: Moderate to Severe Pain (4-10) Last Admin: 02/25/18 07:51 Dose: 1 tab Al Hydroxide/Mg Hydroxide (Maalox) 30 ml PO Q6H PRN PRN Reason: Heartburn or Indigestion Albuterol/Ipratropium (Duoneb) 3 ml NEB [id number] SHANTHI Alprazolam (Xanax) 0.25 mg PO TIDPRN PRN PRN Reason: Anxiety Last Admin: 02/24/18 21:56 Dose: 0.25 mg Aspirin (Aspirin Chewable) 81 mg PO DAILY SHANTHI Last Admin: 08/08/18 07:50 Dose: 81 mg Bisacodyl (Dulcolax) 10 mg MD Q24H PRN PRN Reason: Constipation Carvedilol (Coreg) 6.25 mg PO BID-[facility] Last Admin: 02/25/18 07:50 Dose: 6.25 mg Cyanocobalamin (Vitamin B-12) 1,000 mcg PO DAILY [facility] Last Admin: 02/25/18 07:51 Dose: 1,000 mcg Famotidine (Pepcid) 20 mg PO DAILY [facility] Last Admin: 02/25/18 07:50 Dose: 20 mg Folic Acid (Folvite) 1 mg PO BID [facility] Last Admin: 02/25/18 07:50 Dose: 1 mg Heparin Sodium (Porcine) (Heparin) 5,000 units SC BID [facility] Last Admin: 02/25/18 07:59 Dose: 5,000 units Hydralazine HCl (Apresoline) 10 mg SLOW IVP Q4H PRN PRN Reason: SBP Greater Than 180 Last Admin: 02/17/18 05:02 Dose: 10 mg Hydralazine HCl (Apresoline) 25 mg PO BID [facility] Last Admin: 02/25/18 07:49 Dose: 25 mg Labetalol HCl (Normodyne) 10 mg SLOW IVP Q4H PRN PRN Reason: SBP Greater Than 180 Melatonin (Melatonin) 3 mg PO HS PRN PRN Reason: Insomnia Last Admin: 02/23/18 21:02 Dose: 3 mg Nitroglycerin (Nitrostat) 0.4 mg PO Q5MIN PRN PRN Reason: Chest Pain Ondansetron HCl (Zofran Odt) 4 mg PO Q6H PRN PRN Reason: Nausea/Vomiting Ondansetron HCl (Zofran) 4 mg IVP Q6H PRN PRN Reason: Nausea/Vomiting Polyethylene Glycol (Miralax) 17 gm PO BID [facility] Last Admin: 02/25/18 07:50 Dose: 17 gm Senna/Docusate Sodium (Senokot S) 1 tab PO BID [facility] Last Admin: 02/25/18 07:50 Dose: 1 tab Sodium Chloride (Flush - Normal Saline) 10 ml IVF PRN PRN PRN Reason: Saline Flush Tramadol HCl (Ultram) 50 mg PO Q6H PRN PRN Reason: Moderate Pain (4-6) Trazodone HCl (Desyrel) 50 mg PO HS PRN PRN Reason: Insomnia Last Admin: 02/24/18 21:53 Dose: 50 mg
[2018-02-25] MEDS: traZODone HCl 50 MG TAB PO PRN (21:53)
[2018-02-25] MEDS: ALPRAZolam 0.25 MG TAB PO PRN (21:53)
[2018-02-26] MEDS: Senokot S 8.6-50 MG TAB PO SCH ×2 (07:59→21:37)
[2018-02-26] MEDS: ALPRAZolam 0.25 MG TAB PO PRN (07:59)
[2018-02-26] MEDS: Folic Acid 1 MG TAB PO SCH ×2 (07:59→21:38)
[2018-02-26] MEDS: Famotidine 20 MG TAB PO SCH (08:00)
[2018-02-26] MEDS: Polyethylene Glycol 3350 17 GM Packet PO SCH ×2 (08:00→21:36)
[2018-02-26] MEDS: Carvedilol 6.25 MG TAB PO SCH ×2 (08:00→16:39)
[2018-02-26] MEDS: Cyanocobalamin (Vitamin B-12) 1,000 MCG TAB PO SCH (08:00)
[2018-02-26] MEDS: HYDROcodone/Acetaminophen 10/325 mg Tablet PO PRN ×2 (08:00→16:40)
[2018-02-26] MEDS: hydrALAZINE 25 MG TAB PO SCH ×2 (08:01→21:30)
[2018-02-26] MEDS: Heparin 5,000 UNITS/ML VIAL SC SCH ×2 (08:01→21:37)
[2018-02-26 09:12] LABS: Anion Gap 15 mmol/L (10-20); BUN (Urea Nitrogen) 49 mg/dL (8.4-25.7); Calc. Creatinine Clearance 56 mL/min (70-130); Calcium 8.7 mg/dL (7.8-10.44); Carbon Dioxide 29 mmol/L (23-31); Chloride 103 mmol/L (98-107); Estimated GFR-MDRD 50; Glucose 102 mg/dL (80-115); Magnesium 1.4 mg/dL (1.6-2.6); Potassium 3.5 mmol/L (3.5-5.1); Sodium 143 mmol/L (136-145)
[2018-02-26 09:37] LABS: Hemoglobin 8.2 g/dL (14.0-18.0); Mean Corpuscular HGB CONC 32.4 g/dL (32.0-36.0); Mean Corpuscular Hemoglobin 29.6 pg (27.0-31.0); Mean Corpuscular Volume 91.6 fL (78.0-98.0); Mean Platelet Volume 6.9 fL (7.4-10.4); Platelet Count 204 thou/uL (130-400); RBC Distribution Width 12.9 % (11.5-14.5); Red Blood Cell (RBC) Count 2.77 mill/uL (4.70-6.10); White Blood Cell (WBC) Count 11.5 thou/uL (4.8-10.8)
[2018-02-26 10:10] LABS: Band 8 % (5-11); Eosinophils 1 % (0-10); Lymphocytes 3 % (21-51); MDiff Complete? YES; Monocytes 12 % (0-10); Myelocyte 1 % (0-0); Neutrophil 75 % (42-75); PLT Morphology Comment Appears Adequate; Polychromasia SLIGHT = 2-3 cells (100X) (0-2/hpf)
[2018-02-26] MEDS ORDERED: Magnesium Oxide 400 MG TAB PO SCH (10:30)
--- NOTE | 2018-02-26 11:49 | PDOC.PN ---
- Subjective Encounter Start Date: 02/26/18 Encounter Start Time: 07:00 diaz spoor po intake, he is weak, can not take care of him - Objective Resuscitation Status: Resuscitation Status DNR:Do Not Resuscitate MAR Reviewed: Yes Vital Signs & Weight: Vital Signs (12 hours) Temp Pulse Resp BP BP Pulse Ox 02/26/18 08:01 102 H 02/26/18 08:00 99.8 F H 102 H 22 H 133/77 92 L 02/26/18 07:49 99.8 F H 102 H 22 H 118/60 92 L 02/26/18 06:55 92 16 92 L Weight Admit Weight 179 lb 7.3 oz Weight 174 lb 2.643 oz Most Recent Monitor Data Heart Rate from ECG 88 NIBP 122/62 NIBP BP-Mean 77 Respiration from ECG 16 SpO2 94 I&O: 02/25/18 02/26/18 02/27/18 06:59 06:59 06:59 Intake Total 500 1500 Output Total 900 1400 Balance -400 100 Result Diagrams: 02/26/18 08:31 02/26/18 08:31 Phys Exam - Physical Examination Constitutional: NAD HEENT: PERRLA, moist MMs, sclera anicteric Neck: no JVD, supple Respiratory: no wheezing, no rales, no rhonchi pleurex catheter on right side Cardiovascular: RRR, no significant murmur, no rub Gastrointestinal: soft, non-tender, no distention, positive bowel sounds Musculoskeletal: no edema, pulses present Neurological: non-focal, normal sensation Lymphatic: no nodes Psychiatric: normal affect Skin: no rash, normal turgor Dx/Plan (1) Acute renal failure superimposed on stage 3 chronic kidney disease Code(s): N17.9 - ACUTE KIDNEY FAILURE, UNSPECIFIED; N18.3 - CHRONIC KIDNEY DISEASE, STAGE 3 (MODERATE) Status: Acute Comment: improved to baseline (2) Pleural effusion Code(s): J90 - PLEURAL EFFUSION, NOT ELSEWHERE CLASSIFIED Status: Acute Comment: s/p R Thoracentesis.Cx negative so far.Pathology +ve for Metastatic Cancer. R Pleurx cathter in place (3) CAD (coronary artery disease) Code(s): I25.10 - ATHSCL HEART DISEASE OF [place] CORONARY ARTERY W/O ANG PCTRS Status: Chronic Qualifiers: Coronary Disease-Associated Artery/Lesion type: [place] artery [place] vs. transplanted heart: [place] heart Associated angina: without angina Qualified Code(s): I25.10 - Atherosclerotic heart disease of [place] coronary artery without angina pectoris (4) Carotid stenosis, left Code(s): I65.22 - OCCLUSION AND STENOSIS OF LEFT CAROTID ARTERY Status: Chronic Comment: s/p angioplasty, stable (5) Chronic diastolic CHF (congestive heart failure) Code(s): I50.32 - CHRONIC DIASTOLIC (CONGESTIVE) HEART FAILURE Status: Chronic (6) HLD (hyperlipidemia) Code(s): E78.5 - HYPERLIPIDEMIA, UNSPECIFIED Status: Chronic Comment: Lipitor 40mg HS (7) HTN (hypertension) Code(s): I10 - ESSENTIAL (PRIMARY) HYPERTENSION Status: Chronic Qualifiers: Hypertension type: essential hypertension Qualified Code(s): I10 - Essential (primary) hypertension Comment: stable, (8) History of malignant neoplasm of tonsil Code(s): Z85.818 - PRSNL HX OF MALIG NEOPLM OF SITE OF LIP, ORAL CAV, & PHARYNX Status: Chronic Comment: s/p Chemo and XRT ,finished in 06/2017. (9) PAD (peripheral artery disease) Code(s): I73.9 - PERIPHERAL VASCULAR DISEASE, UNSPECIFIED Status: Chronic Comment: s/p angioplasty in past, stable (10) S/P CABG x 3 Code(s): Z95.1 - PRESENCE OF AORTOCORONARY BYPASS GRAFT Status: Chronic (11) Aspiration pneumonia due to regurgitated food Code(s): J69.0 - PNEUMONITIS DUE TO INHALATION OF FOOD AND VOMIT Status: Suspected Comment: (12) Acute respiratory failure with hypoxia Code(s): J96.01 - ACUTE RESPIRATORY FAILURE WITH HYPOXIA Status: Resolved Comment: improved.s/p IV Abx,IV steroids.extubated (13) Hypercalcemia of malignancy Code(s): E83.52 - HYPERCALCEMIA Status: Resolved (14) Hypokalemia Code(s): E87.6 - HYPOKALEMIA Status: Resolved (15) Hypomagnesemia Code(s): E83.42 - HYPOMAGNESEMIA Status: Resolved (16) Pain from bone metastases Code(s): G89.3 - NEOPLASM RELATED PAIN (ACUTE) (CHRONIC); C79.51 - SECONDARY MALIGNANT NEOPLASM OF BONE Status: Acute - Plan cont current plan of care, plan discussed w/ family, PT/OT, oncology social worker * WILL ADD MEGACE TO STIMULATE APATITE * MEDICATION REVIEWED BELOW * SYMPTOMATIC TREATMENT * AWAIT PLACEMENT * NEEDS SNU. Review of Systems - Review of Systems Eyes: negative: Pain, Vision Change, Conjunctivae Inflammation, Eyelid Inflammation, Redness, Other ENT: negative: Ear Pain, Ear Discharge, Nose Pain, Nose Discharge, Nose Congestion, Mouth Pain, Mouth Swelling, Throat Pain, Throat Swelling, Other Respiratory: negative: Cough, Dry, Shortness of Breath, Hemoptysis, SOB with Excertion, Pleuritic Pain, Sputum, Wheezing Cardiovascular: negative: chest pain, palpitations, orthopnea, paroxysmal nocturnal dyspnea, edema, light headedness, other Gastrointestinal: negative: Nausea, Vomiting, Abdominal Pain, Diarrhea, Constipation, Melena, Hematochezia, Other Genitourinary: negative: Dysuria, Frequency, Incontinence, Hematuria, Retention , Other Musculoskeletal: negative: Neck Pain, Shoulder Pain, Arm Pain, Back Pain, Hand Pain, Leg Pain, Foot Pain, Other Skin: negative: Rash, Lesions, Adelfo, Bruising, Other - Medications/Allergies Allergies/Adverse Reactions: Allergies Allergy/AdvReac Type Severity Reaction Status Date / Time No Known Allergies Allergy Verified 02/12/18 20:47 Medications: Current Medications Acetaminophen (Tylenol) 1,000 mg PO Q6H PRN PRN Reason: Headache/Fever or Pain Last Admin: 02/24/18 02:44 Dose: 1,000 mg Hydrocodone Bitart/Acetaminophen ([place] 5/325) 1 tab PO Q4H PRN PRN Reason: Breakthrough Pain Last Admin: 02/24/18 22:07 Dose: 1 tab Hydrocodone Bitart/Acetaminophen ([place] 10/325) 1 tab PO Q4H PRN PRN Reason: Moderate to Severe Pain (4-10) Last Admin: 02/26/18 08:00 Dose: 1 tab Al Hydroxide/Mg Hydroxide (Maalox) 30 ml PO Q6H PRN PRN Reason: Heartburn or Indigestion Albuterol/Ipratropium (Duoneb) 3 ml NEB [id number] SHANTHI Last Admin: 02/26/18 06:55 Dose: 3 ml Alprazolam (Xanax) 0.25 mg PO TIDPRN PRN PRN Reason: Anxiety Last Admin: 02/26/18 07:59 Dose: 0.25 mg Aspirin (Aspirin Chewable) 81 mg PO DAILY [facility] Last Admin: 02/26/18 08:00 Dose: 81 mg Bisacodyl (Dulcolax) 10 mg SD Q24H PRN PRN Reason: Constipation Carvedilol (Coreg) 6.25 mg PO BID-[facility] Last Admin: 02/26/18 08:00 Dose: 6.25 mg Cyanocobalamin (Vitamin B-12) 1,000 mcg PO DAILY [facility] Last Admin: 02/26/18 08:00 Dose: 1,000 mcg Famotidine (Pepcid) 20 mg PO DAILY [facility] Last Admin: 02/26/18 08:00 Dose: 20 mg Folic Acid (Folvite) 1 mg PO BID [facility] Last Admin: 02/26/18 07:59 Dose: 1 mg Heparin Sodium (Porcine) (Heparin) 5,000 units SC BID [facility] Last Admin: 02/26/18 08:01 Dose: 5,000 units Hydralazine HCl (Apresoline) 10 mg SLOW IVP Q4H PRN PRN Reason: SBP Greater Than 180 Last Admin: 02/17/18 05:02 Dose: 10 mg Hydralazine HCl (Apresoline) 25 mg PO BID [facility] Last Admin: 02/26/18 08:01 Dose: Not Given Iron/Minerals/Multivitamins (Theragran M) 1 tab PO DAILY [facility] Labetalol HCl (Normodyne) 10 mg SLOW IVP Q4H PRN PRN Reason: SBP Greater Than 180 Magnesium Oxide (Magnesium Oxide) 400 mg PO BID [facility] Magnesium Oxide (Magnesium Oxide) 400 mg PO NOW [facility] Stop: 02/26/18 12:00 Megestrol Acetate (Megace) 40 mg PO DAILY [facility] Melatonin (Melatonin) 3 mg PO HS PRN PRN Reason: Insomnia Last Admin: 02/23/18 21:02 Dose: 3 mg Nitroglycerin (Nitrostat) 0.4 mg PO Q5MIN PRN PRN Reason: Chest Pain Ondansetron HCl (Zofran Odt) 4 mg PO Q6H PRN PRN Reason: Nausea/Vomiting Ondansetron HCl (Zofran) 4 mg IVP Q6H PRN PRN Reason: Nausea/Vomiting Polyethylene Glycol (Miralax) 17 gm PO BID [facility] Last Admin: 02/26/18 08:00 Dose: 17 gm Senna/Docusate Sodium (Senokot S) 1 tab PO BID [facility] Last Admin: 02/26/18 07:59 Dose: 1 tab Sodium Chloride (Flush - Normal Saline) 10 ml IVF PRN PRN PRN Reason: Saline Flush Tramadol HCl (Ultram) 50 mg PO Q6H PRN PRN Reason: Moderate Pain (4-6) Trazodone HCl (Desyrel) 50 mg PO HS PRN PRN Reason: Insomnia Last Admin: 02/25/18 21:53 Dose: 50 mg
--- NOTE | 2018-02-26 11:59 | DIS ---
DATE OF ADMISSION: 02/12/2018 DATE OF DISCHARGE: 02/26/2018 PRIMARY CARE PHYSICIAN: Shun Cunningham M.D. DISCHARGE DISPOSITION: group home home. PRIMARY DISCHARGE DIAGNOSES: 1. Acute kidney failure on chronic kidney disease stage 3. 2. Intractable pain from bony metastasis. 3. Hypercalcemia of malignancy. 4. Hypomagnesemia, corrected. 5. Hypokalemia, corrected. 6. Malignant pleural effusion, status post thoracentesis and PleurX catheter. 7. Status post acute respiratory failure with hypoxia. 8. Suspected aspiration pneumonia. SECONDARY DISCHARGE DIAGNOSES: Hypertension, dyslipidemia, peripheral arterial disease, carotid sten osis on the left, history of coronary artery bypass grafting, coronary artery disease, malignant neop lasm of tonsil, chronic diastolic heart failure, physical deconditioning. PRIMARY PROCEDURE/OPERATION: PleurX catheter was placed by Dr. Bassett. Thoracentesis was done while in hospital. RADIOLOGICAL INVESTIGATION: CT brain, chest x-ray, renal ultrasound, abdominal ultrasound, several c hest x-ray, echocardiography, modified barium swallow. SIGNIFICANT LABORATORY DATA: WBC 11.5, hemoglobin 8.2, platelet 204. Sodium 143, potassium 3.5, BUN 49, creatinine 1.41, calcium 8.7, magnesium 1.4. Urinalysis normal. Pleural fluid; WBC 766, LDH 41 9. DISCHARGE MEDICATIONS: Aspirin 81 mg p.o. daily, Coreg 6.25 mg p.o. b.i.d., vitamin B12 1000 mcg p.o . daily, Pepcid 20 mg p.o. daily, folic acid 1 mg p.o. b.i.d., hydralazine 25 mg p.o. b.i.d., DuoNeb q.6 hourly p.r.n., magnesium oxide 400 mg p.o. b.i.d., Megace 40 mg p.o. daily, multivitamin 1 tablet p.o. daily, MiraLax 17 grams p.o. daily, Senokot 1 tablet p.o. b.i.d., Xanax 0.25 mg p.o. t.i.d. p.r .n., melatonin 3 mg p.o. at bedtime p.r.n., tramadol 50 mg q.6 hourly p.r.n. CONTRAINDICATIONS: None. CODE STATUS: DNR. INPATIENT CONSULTANTS: Pulmonary Group was consulted for pleural effusion. Dr. Francois was following fo r renal failure. Oncology Group was following for malignancy. TEST RESULTS PENDING ON DISCHARGE: None. ALLERGIES: No known drug allergy. DISCHARGE PLAN: Patient is planned for discharge to prison home. Subsequently, patient daksha l follow up with primary care physician. The patient will follow up with Oncology and Pulmonary Grou p. HOSPITAL COURSE: A 67-year-old male who was admitted on 02/13/2018. The patient was admitted by Dr. Saud Christy. Please see his H&P for further detail. On admission, patient was diagnosed with sever e hypercalcemia which we suspected hypercalcemia for malignancy. We sent PTHrP that came back normal . The patient was treated with forced diuresis with improvement in his calcium level. On admission, the patient also had acute on chronic kidney failure that was also improved with hydrat ion. He was dehydrated and volume depleted from his poor p.o. intake that was resolved after hydrati on. He does have abnormal LFT which he is suspected for some metastasis but the patient is planned for ou tpatient PET scan for further evaluation. The patient does have protein calorie malnutrition from poor p.o. intake and failure to thrive, which we suspected from tumor necrosis factor. The patient's appetite is very poor and to stimulate that we started Megace and multivitamin therapy while in hospital. The patient had right-sided pleural effusion, that is why seated he required thoracentesis and pleura l fluid was consistent with malignancy and that is why PleurX catheter was placed. Patient also had a code while in hospital, required intubation. Subsequently, he was extubated and the patient was tr ansferred to Oncology floor. At this point, his renal function is improved to baseline level. His e lectrolytes were corrected while in hospital with magnesium replacement as well as potassium replacem ent. His dehydration was corrected. He is at risk for recurrent admission from his malignant pleura l effusion and his physical deconditioning as well as poor p.o. intake. During this admission, patient was made DNR. Patient's long-term prognosis is very poor. Patient's family member wanted to discuss with Dr. Mederos about his prognosis and goal of care and depending u paulette their evaluation and recommendation, the patient and family member will consider next level of ca re. At this point, the patient has physical deconditioning and that is why we were planning to let maddison white go to rehab, but his insurance declined and that is why we are working on his prison home placement. Bone scan was done which showed bony metastasis and he will get outpatient PET scan as w ell as further evaluation with Oncology to determine plan of care. During this admission, echocardio graphy showed diastolic dysfunction. Overall, patient is currently stable. His vitals were stable. He will follow up with above-mentione d consultants after discharge. By the time of dictation, patient is still waiting for prison home approval.
[2018-02-26] MEDS: Magnesium Oxide 400 MG TAB PO SCH (21:38)
[2018-02-26] MEDS: traZODone HCl 50 MG TAB PO PRN (21:39)
[2018-02-27 08:15] LABS: Anion Gap 17 mmol/L (10-20); BUN (Urea Nitrogen) 43 mg/dL (8.4-25.7); Calc. Creatinine Clearance 54 mL/min (70-130); Calcium 8.7 mg/dL (7.8-10.44); Carbon Dioxide 29 mmol/L (23-31); Chloride 105 mmol/L (98-107); Estimated GFR-MDRD 48; Glucose 83 mg/dL (80-115); Magnesium 1.5 mg/dL (1.6-2.6); Sodium 147 mmol/L (136-145)
[2018-02-27] MEDS: HYDROcodone/Acetaminophen 10/325 mg Tablet PO PRN ×3 (08:15→21:46)
[2018-02-27] MEDS: ALPRAZolam 0.25 MG TAB PO PRN (08:17)
[2018-02-27] MEDS: Carvedilol 6.25 MG TAB PO SCH ×2 (08:19→17:46)
[2018-02-27] MEDS: Megestrol Acetate 40 MG TAB PO SCH (08:22)
[2018-02-27] MEDS: Magnesium Oxide 400 MG TAB PO SCH ×2 (08:23→21:46)
[2018-02-27] MEDS: hydrALAZINE 25 MG TAB PO SCH ×2 (08:26→21:33)
[2018-02-27 08:51] LABS: Band 6 % (5-11); Eosinophils 1 % (0-10); Hemoglobin 8.7 g/dL (14.0-18.0); Lymphocytes 6 % (21-51); MDiff Complete? YES; Mean Corpuscular Hemoglobin 30.3 pg (27.0-31.0); Mean Corpuscular Volume 91.8 fL (78.0-98.0); Mean Platelet Volume 6.7 fL (7.4-10.4); Monocytes 7 % (0-10); Neutrophil 80 % (42-75); PLT Morphology Comment Appears Adequate; Platelet Count 190 thou/uL (130-400); Polychromasia SLIGHT = 2-3 cells (100X) (0-2/hpf); RBC Distribution Width 12.9 % (11.5-14.5); Red Blood Cell (RBC) Count 2.85 mill/uL (4.70-6.10); White Blood Cell (WBC) Count 13.1 thou/uL (4.8-10.8)
[2018-02-27] MEDS: Folic Acid 1 MG TAB PO SCH ×2 (08:55→21:46)
[2018-02-27] MEDS: Cyanocobalamin (Vitamin B-12) 1,000 MCG TAB PO SCH (08:55)
[2018-02-27] MEDS: Multivitamin W/ Minerals 1 TAB PO SCH (08:55)
[2018-02-27] MEDS: Heparin 5,000 UNITS/ML VIAL SC SCH ×2 (09:05→21:46)
[2018-02-27] MEDS: Famotidine 20 MG TAB PO SCH (09:05)
[2018-02-27] MEDS: Senokot S 8.6-50 MG TAB PO SCH ×2 (09:07→22:06)
[2018-02-27] MEDS: Polyethylene Glycol 3350 17 GM Packet PO SCH ×2 (09:07→22:05)
--- NOTE | 2018-02-27 11:37 | PDOC.PN ---
- Subjective Encounter Start Date: 02/27/18 Encounter Start Time: 07:00 Patient seen and examined. No new complaints. No overnight events - Objective Resuscitation Status: Resuscitation Status DNR:Do Not Resuscitate MAR Reviewed: Yes Vital Signs & Weight: Vital Signs (12 hours) Temp Pulse Resp BP BP Pulse Ox 02/27/18 08:26 115/59 L 02/27/18 08:19 115/59 L 02/27/18 07:57 98.1 F 129 H 16 107/67 92 L 02/27/18 06:55 96 02/27/18 06:50 96 16 02/27/18 03:49 92 L 02/26/18 23:53 93 L Weight Admit Weight 179 lb 7.3 oz Weight 174 lb 2.643 oz Most Recent Monitor Data Heart Rate from ECG 88 NIBP 122/62 NIBP BP-Mean 77 Respiration from ECG 16 SpO2 94 I&O: 02/26/18 02/27/18 02/28/18 06:59 06:59 06:59 Intake Total 1500 1870 Output Total 1400 2937 Balance 100 -1067 Result Diagrams: 02/27/18 07:46 02/27/18 07:46 Phys Exam - Physical Examination Constitutional: NAD HEENT: PERRLA, moist MMs, sclera anicteric, oral pharynx no lesions Neck: no JVD, supple Respiratory: no wheezing, no rales, no rhonchi Cardiovascular: RRR, no significant murmur, no rub Gastrointestinal: soft, non-tender, no distention, positive bowel sounds Musculoskeletal: no edema, pulses present Neurological: non-focal, normal sensation Lymphatic: no nodes Psychiatric: normal affect Skin: no rash, normal turgor Dx/Plan (1) Acute renal failure superimposed on stage 3 chronic kidney disease Code(s): N17.9 - ACUTE KIDNEY FAILURE, UNSPECIFIED; N18.3 - CHRONIC KIDNEY DISEASE, STAGE 3 (MODERATE) Status: Acute Comment: improved to baseline (2) Pleural effusion Code(s): J90 - PLEURAL EFFUSION, NOT ELSEWHERE CLASSIFIED Status: Acute Comment: s/p R Thoracentesis.Cx negative so far.Pathology +ve for Metastatic Cancer. R Pleurx cathter in place (3) CAD (coronary artery disease) Code(s): I25.10 - ATHSCL HEART DISEASE OF [place] CORONARY ARTERY W/O ANG PCTRS Status: Chronic Qualifiers: Coronary Disease-Associated Artery/Lesion type: [place] artery [place] vs. transplanted heart: [place] heart Associated angina: without angina Qualified Code(s): I25.10 - Atherosclerotic heart disease of [place] coronary artery without angina pectoris (4) Carotid stenosis, left Code(s): I65.22 - OCCLUSION AND STENOSIS OF LEFT CAROTID ARTERY Status: Chronic Comment: s/p angioplasty, stable (5) Chronic diastolic CHF (congestive heart failure) Code(s): I50.32 - CHRONIC DIASTOLIC (CONGESTIVE) HEART FAILURE Status: Chronic (6) HLD (hyperlipidemia) Code(s): E78.5 - HYPERLIPIDEMIA, UNSPECIFIED Status: Chronic Comment: Lipitor 40mg HS (7) HTN (hypertension) Code(s): I10 - ESSENTIAL (PRIMARY) HYPERTENSION Status: Chronic Qualifiers: Hypertension type: essential hypertension Qualified Code(s): I10 - Essential (primary) hypertension Comment: stable, (8) History of malignant neoplasm of tonsil Code(s): Z85.818 - PRSNL HX OF MALIG NEOPLM OF SITE OF LIP, ORAL CAV, & PHARYNX Status: Chronic Comment: s/p Chemo and XRT ,finished in 06/2017. (9) PAD (peripheral artery disease) Code(s): I73.9 - PERIPHERAL VASCULAR DISEASE, UNSPECIFIED Status: Chronic Comment: s/p angioplasty in past, stable (10) S/P CABG x 3 Code(s): Z95.1 - PRESENCE OF AORTOCORONARY BYPASS GRAFT Status: Chronic (11) Aspiration pneumonia due to regurgitated food Code(s): J69.0 - PNEUMONITIS DUE TO INHALATION OF FOOD AND VOMIT Status: Suspected Comment: (12) Acute respiratory failure with hypoxia Code(s): J96.01 - ACUTE RESPIRATORY FAILURE WITH HYPOXIA Status: Resolved Comment: improved.s/p IV Abx,IV steroids.extubated (13) Hypercalcemia of malignancy Code(s): E83.52 - HYPERCALCEMIA Status: Resolved (14) Hypokalemia Code(s): E87.6 - HYPOKALEMIA Status: Resolved (15) Hypomagnesemia Code(s): E83.42 - HYPOMAGNESEMIA Status: Resolved (16) Pain from bone metastases Code(s): G89.3 - NEOPLASM RELATED PAIN (ACUTE) (CHRONIC); C79.51 - SECONDARY MALIGNANT NEOPLASM OF BONE Status: Acute - Plan cont current plan of care, plan discussed w/ family, socially responsible investment adviser * oncology recommended hospice * await placement * medication reviewed as below * supportive treatment. Review of Systems - Review of Systems Eyes: negative: Pain, Vision Change, Conjunctivae Inflammation, Eyelid Inflammation, Redness, Other ENT: negative: Ear Pain, Ear Discharge, Nose Pain, Nose Discharge, Nose Congestion, Mouth Pain, Mouth Swelling, Throat Pain, Throat Swelling, Other Respiratory: negative: Cough, Dry, Shortness of Breath, Hemoptysis, SOB with Excertion, Pleuritic Pain, Sputum, Wheezing Cardiovascular: negative: chest pain, palpitations, orthopnea, paroxysmal nocturnal dyspnea, edema, light headedness, other Gastrointestinal: negative: Nausea, Vomiting, Abdominal Pain, Diarrhea, Constipation, Melena, Hematochezia, Other Genitourinary: negative: Dysuria, Frequency, Incontinence, Hematuria, Retention , Other Musculoskeletal: negative: Neck Pain, Shoulder Pain, Arm Pain, Back Pain, Hand Pain, Leg Pain, Foot Pain, Other Skin: negative: Rash, Lesions, [place], Bruising, Other - Medications/Allergies Allergies/Adverse Reactions: Allergies Allergy/AdvReac Type Severity Reaction Status Date / Time No Known Allergies Allergy Verified 02/12/18 20:47 Medications: Current Medications Acetaminophen (Tylenol) 1,000 mg PO Q6H PRN PRN Reason: Headache/Fever or Pain Last Admin: 02/24/18 02:44 Dose: 1,000 mg Hydrocodone Bitart/Acetaminophen ([place] 5/325) 1 tab PO Q4H PRN PRN Reason: Breakthrough Pain Last Admin: 02/24/18 22:07 Dose: 1 tab Hydrocodone Bitart/Acetaminophen ([place] 10/325) 1 tab PO Q4H PRN PRN Reason: Moderate to Severe Pain (4-10) Last Admin: 02/27/18 08:15 Dose: 1 tab Al Hydroxide/Mg Hydroxide (Maalox) 30 ml PO Q6H PRN PRN Reason: Heartburn or Indigestion Albuterol/Ipratropium (Duoneb) 3 ml NEB [id number] SHANTHI Last Admin: 02/27/18 06:50 Dose: 3 ml Alprazolam (Xanax) 0.25 mg PO TIDPRN PRN PRN Reason: Anxiety Last Admin: 02/27/18 08:17 Dose: 0.25 mg Aspirin (Aspirin Chewable) 81 mg PO DAILY [facility] Last Admin: 02/27/18 09:06 Dose: 81 mg Bisacodyl (Dulcolax) 10 mg [place] Q24H PRN PRN Reason: Constipation Carvedilol (Coreg) 6.25 mg PO BID-[facility] Last Admin: 02/27/18 08:19 Dose: 6.25 mg Cyanocobalamin (Vitamin B-12) 1,000 mcg PO DAILY [facility] Last Admin: 02/27/18 08:55 Dose: 1,000 mcg Famotidine (Pepcid) 20 mg PO DAILY [facility] Last Admin: 02/27/18 09:05 Dose: 20 mg Folic Acid (Folvite) 1 mg PO BID [facility] Last Admin: 02/27/18 08:55 Dose: 1 mg Heparin Sodium (Porcine) (Heparin) 5,000 units SC BID [facility] Last Admin: 02/27/18 09:05 Dose: 5,000 units Hydralazine HCl (Apresoline) 10 mg SLOW IVP Q4H PRN PRN Reason: SBP Greater Than 180 Last Admin: 02/17/18 05:02 Dose: 10 mg Hydralazine HCl (Apresoline) 25 mg PO BID [facility] Last Admin: 02/27/18 08:26 Dose: Not Given Iron/Minerals/Multivitamins (Theragran M) 1 tab PO DAILY [facility] Last Admin: 02/27/18 08:55 Dose: 1 tab Labetalol HCl (Normodyne) 10 mg SLOW IVP Q4H PRN PRN Reason: SBP Greater Than 180 Magnesium Oxide (Magnesium Oxide) 400 mg PO BID [facility] Last Admin: 02/27/18 08:23 Dose: 400 mg Megestrol Acetate (Megace) 40 mg PO DAILY [facility] Last Admin: 02/27/18 08:22 Dose: 40 mg Melatonin (Melatonin) 3 mg PO HS PRN PRN Reason: Insomnia Last Admin: 02/23/18 21:02 Dose: 3 mg Nitroglycerin (Nitrostat) 0.4 mg PO Q5MIN PRN PRN Reason: Chest Pain Ondansetron HCl (Zofran Odt) 4 mg PO Q6H PRN PRN Reason: Nausea/Vomiting Ondansetron HCl (Zofran) 4 mg IVP Q6H PRN PRN Reason: Nausea/Vomiting Polyethylene Glycol (Miralax) 17 gm PO BID [facility] Last Admin: 02/27/18 09:07 Dose: Not Given Senna/Docusate Sodium (Senokot S) 1 tab PO BID [facility] Last Admin: 02/27/18 09:07 Dose: Not Given Sodium Chloride (Flush - Normal Saline) 10 ml IVF PRN PRN PRN Reason: Saline Flush Tramadol HCl (Ultram) 50 mg PO Q6H PRN PRN Reason: Moderate Pain (4-6) Trazodone HCl (Desyrel) 50 mg PO HS PRN PRN Reason: Insomnia Last Admin: 02/26/18 21:39 Dose: 50 mg
[2018-02-27] MEDS: traZODone HCl 50 MG TAB PO PRN (21:46)
[2018-02-28 06:48] LABS: Anion Gap 14 mmol/L (10-20); BUN (Urea Nitrogen) 44 mg/dL (8.4-25.7); Calc. Creatinine Clearance 56 mL/min (70-130); Calcium 8.5 mg/dL (7.8-10.44); Carbon Dioxide 31 mmol/L (23-31); Chloride 103 mmol/L (98-107); Estimated GFR-MDRD 50; Glucose 83 mg/dL (80-115); Magnesium 1.8 mg/dL (1.6-2.6); Potassium 3.8 mmol/L (3.5-5.1); Sodium 144 mmol/L (136-145)
[2018-02-28 06:50] LABS: Band 12 % (5-11); Eosinophils 2 % (0-10); Hemoglobin 8.7 g/dL (14.0-18.0); Lymphocytes 4 % (21-51); MDiff Complete? YES; Mean Corpuscular HGB CONC 32.8 g/dL (32.0-36.0); Mean Corpuscular Hemoglobin 30.2 pg (27.0-31.0); Mean Corpuscular Volume 91.9 fL (78.0-98.0); Mean Platelet Volume 6.6 fL (7.4-10.4); Monocytes 10 % (0-10); Neutrophil 72 % (42-75); PLT Morphology Comment Appears Adequate; Platelet Count 193 thou/uL (130-400); RBC Distribution Width 13.1 % (11.5-14.5); Red Blood Cell (RBC) Count 2.88 mill/uL (4.70-6.10); White Blood Cell (WBC) Count 10.9 thou/uL (4.8-10.8)
[2018-02-28] MEDS: Carvedilol 6.25 MG TAB PO SCH ×2 (09:07→18:11)
[2018-02-28] MEDS: Famotidine 20 MG TAB PO SCH (09:07)
[2018-02-28] MEDS: hydrALAZINE 25 MG TAB PO SCH ×2 (09:07→20:26)
[2018-02-28] MEDS: Heparin 5,000 UNITS/ML VIAL SC SCH ×2 (09:07→20:28)
[2018-02-28] MEDS: Magnesium Oxide 400 MG TAB PO SCH ×2 (09:08→20:27)
[2018-02-28] MEDS: Folic Acid 1 MG TAB PO SCH ×2 (09:08→20:27)
[2018-02-28] MEDS: Cyanocobalamin (Vitamin B-12) 1,000 MCG TAB PO SCH (09:08)
[2018-02-28] MEDS: Senokot S 8.6-50 MG TAB PO SCH ×2 (09:09→20:27)
[2018-02-28] MEDS: Megestrol Acetate 40 MG TAB PO SCH (09:09)
[2018-02-28] MEDS: Polyethylene Glycol 3350 17 GM Packet PO SCH ×2 (09:09→20:28)
[2018-02-28] MEDS: Multivitamin W/ Minerals 1 TAB PO SCH (09:09)
[2018-02-28] MEDS: HYDROcodone/Acetaminophen 10/325 mg Tablet PO PRN ×2 (09:11→18:10)
--- NOTE | 2018-02-28 10:56 | PDOC.PN ---
- Subjective Encounter Start Date: 02/28/18 Encounter Start Time: 07:00 pt is confused, now family decided to let him go with hospice, Patient seen and examined. No overnight events - Objective Resuscitation Status: Resuscitation Status DNR:Do Not Resuscitate MAR Reviewed: Yes Vital Signs & Weight: Vital Signs (12 hours) Temp Pulse Resp BP BP Pulse Ox 02/28/18 09:07 101 H 121/58 L 02/28/18 07:48 98.2 F 101 H 16 121/58 L 90 L 02/28/18 06:34 94 L 02/28/18 06:31 95 16 02/28/18 03:54 98.1 F 94 L 02/28/18 00:00 99.7 F H 16 96 Weight Admit Weight 179 lb 7.3 oz Weight 174 lb 2.643 oz Most Recent Monitor Data Heart Rate from ECG 88 NIBP 122/62 NIBP BP-Mean 77 Respiration from ECG 16 SpO2 94 I&O: 02/27/18 02/28/18 03/01/18 06:59 06:59 06:59 Intake Total 1870 840 Output Total 2937 2340 Balance -1067 -1500 Result Diagrams: 02/28/18 06:21 02/28/18 06:21 Phys Exam - Physical Examination Constitutional: NAD HEENT: PERRLA, moist MMs, sclera anicteric Neck: no JVD, supple Respiratory: no wheezing, no rales, no rhonchi pleurex catheter in place reduced air entry right side Cardiovascular: RRR, no significant murmur, no rub Gastrointestinal: soft, non-tender, no distention, positive bowel sounds Musculoskeletal: no edema, pulses present Neurological: moves all 4 limbs confused Lymphatic: no nodes Psychiatric: normal affect Skin: no rash, normal turgor Dx/Plan (1) Acute renal failure superimposed on stage 3 chronic kidney disease Code(s): N17.9 - ACUTE KIDNEY FAILURE, UNSPECIFIED; N18.3 - CHRONIC KIDNEY DISEASE, STAGE 3 (MODERATE) Status: Acute Comment: improved to baseline (2) Pleural effusion Code(s): J90 - PLEURAL EFFUSION, NOT ELSEWHERE CLASSIFIED Status: Acute Comment: s/p R Thoracentesis.Cx negative so far.Pathology +ve for Metastatic Cancer. R Pleurx cathter in place (3) CAD (coronary artery disease) Code(s): I25.10 - ATHSCL HEART DISEASE OF [place] CORONARY ARTERY W/O ANG PCTRS Status: Chronic Qualifiers: Coronary Disease-Associated Artery/Lesion type: [place] artery [place] vs. transplanted heart: [place] heart Associated angina: without angina Qualified Code(s): I25.10 - Atherosclerotic heart disease of [place] coronary artery without angina pectoris (4) Carotid stenosis, left Code(s): I65.22 - OCCLUSION AND STENOSIS OF LEFT CAROTID ARTERY Status: Chronic Comment: s/p angioplasty, stable (5) Chronic diastolic CHF (congestive heart failure) Code(s): I50.32 - CHRONIC DIASTOLIC (CONGESTIVE) HEART FAILURE Status: Chronic (6) HLD (hyperlipidemia) Code(s): E78.5 - HYPERLIPIDEMIA, UNSPECIFIED Status: Chronic Comment: Lipitor 40mg HS (7) HTN (hypertension) Code(s): I10 - ESSENTIAL (PRIMARY) HYPERTENSION Status: Chronic Qualifiers: Hypertension type: essential hypertension Qualified Code(s): I10 - Essential (primary) hypertension Comment: stable, (8) History of malignant neoplasm of tonsil Code(s): Z85.818 - PRSNL HX OF MALIG NEOPLM OF SITE OF LIP, ORAL CAV, & PHARYNX Status: Chronic Comment: s/p Chemo and XRT ,finished in 06/2017. (9) PAD (peripheral artery disease) Code(s): I73.9 - PERIPHERAL VASCULAR DISEASE, UNSPECIFIED Status: Chronic Comment: s/p angioplasty in past, stable (10) S/P CABG x 3 Code(s): Z95.1 - PRESENCE OF AORTOCORONARY BYPASS GRAFT Status: Chronic (11) Aspiration pneumonia due to regurgitated food Code(s): J69.0 - PNEUMONITIS DUE TO INHALATION OF FOOD AND VOMIT Status: Suspected Comment: (12) Acute respiratory failure with hypoxia Code(s): J96.01 - ACUTE RESPIRATORY FAILURE WITH HYPOXIA Status: Resolved Comment: improved.s/p IV Abx,IV steroids.extubated (13) Hypercalcemia of malignancy Code(s): E83.52 - HYPERCALCEMIA Status: Resolved (14) Hypokalemia Code(s): E87.6 - HYPOKALEMIA Status: Resolved (15) Hypomagnesemia Code(s): E83.42 - HYPOMAGNESEMIA Status: Resolved (16) Pain from bone metastases Code(s): G89.3 - NEOPLASM RELATED PAIN (ACUTE) (CHRONIC); C79.51 - SECONDARY MALIGNANT NEOPLASM OF BONE Status: Acute - Plan cont current plan of care, drug abuse social worker * medication reviewed as below * symptomatic treatment * will consider discharge tomorrow home with hospice Review of Systems - Review of Systems Other: not reliable today as pt is confused - Medications/Allergies Allergies/Adverse Reactions: Allergies Allergy/AdvReac Type Severity Reaction Status Date / Time No Known Allergies Allergy Verified 02/12/18 20:47 Medications: Current Medications Acetaminophen (Tylenol) 1,000 mg PO Q6H PRN PRN Reason: Headache/Fever or Pain Last Admin: 02/24/18 02:44 Dose: 1,000 mg Hydrocodone Bitart/Acetaminophen ([place] 5/325) 1 tab PO Q4H PRN PRN Reason: Breakthrough Pain Last Admin: 02/24/18 22:07 Dose: 1 tab Hydrocodone Bitart/Acetaminophen ([place] 10/325) 1 tab PO Q4H PRN PRN Reason: Moderate to Severe Pain (4-10) Last Admin: 02/28/18 09:11 Dose: 1 tab Al Hydroxide/Mg Hydroxide (Maalox) 30 ml PO Q6H PRN PRN Reason: Heartburn or Indigestion Albuterol/Ipratropium (Duoneb) 3 ml NEB [id number] Last Admin: 02/28/18 06:31 Dose: 3 ml Alprazolam (Xanax) 0.25 mg PO TIDPRN PRN PRN Reason: Anxiety Last Admin: 02/27/18 08:17 Dose: 0.25 mg Aspirin (Aspirin Chewable) 81 mg PO DAILY [facility] Last Admin: 02/28/18 09:07 Dose: 81 mg Bisacodyl (Dulcolax) [address] Q24H PRN PRN Reason: Constipation Carvedilol (Coreg) 6.25 mg PO BID-[facility] Last Admin: 02/28/18 09:07 Dose: 6.25 mg Cyanocobalamin (Vitamin B-12) 1,000 mcg PO DAILY [facility] Last Admin: 02/28/18 09:08 Dose: Not Given Famotidine (Pepcid) 20 mg PO DAILY [facility] Last Admin: 02/28/18 09:07 Dose: 20 mg Folic Acid (Folvite) 1 mg PO BID [facility] Last Admin: 02/28/18 09:08 Dose: Not Given Heparin Sodium (Porcine) (Heparin) 5,000 units SC BID [facility] Last Admin: 02/28/18 09:07 Dose: 5,000 units Hydralazine HCl (Apresoline) 10 mg SLOW IVP Q4H PRN PRN Reason: SBP Greater Than 180 Last Admin: 02/17/18 05:02 Dose: 10 mg Hydralazine HCl (Apresoline) 25 mg PO BID [facility] Last Admin: 02/28/18 09:07 Dose: 25 mg Iron/Minerals/Multivitamins (Theragran M) 1 tab PO DAILY [facility] Last Admin: 02/28/18 09:09 Dose: Not Given Labetalol HCl (Normodyne) 10 mg SLOW IVP Q4H PRN PRN Reason: SBP Greater Than 180 Magnesium Oxide (Magnesium Oxide) 400 mg PO BID [facility] Last Admin: 02/28/18 09:08 Dose: Not Given Megestrol Acetate (Megace) 40 mg PO DAILY [facility] Last Admin: 02/28/18 09:09 Dose: 40 mg Melatonin (Melatonin) 3 mg PO HS PRN PRN Reason: Insomnia Last Admin: 02/23/18 21:02 Dose: 3 mg Nitroglycerin (Nitrostat) 0.4 mg PO Q5MIN PRN PRN Reason: Chest Pain Ondansetron HCl (Zofran Odt) 4 mg PO Q6H PRN PRN Reason: Nausea/Vomiting Ondansetron HCl (Zofran) 4 mg IVP Q6H PRN PRN Reason: Nausea/Vomiting Polyethylene Glycol (Miralax) 17 gm PO BID [facility] Last Admin: 02/28/18 09:09 Dose: Not Given Senna/Docusate Sodium (Senokot S) 1 tab PO BID [facility] Last Admin: 02/28/18 09:09 Dose: Not Given Sodium Chloride (Flush - Normal Saline) 10 ml IVF PRN PRN PRN Reason: Saline Flush Tramadol HCl (Ultram) 50 mg PO Q6H PRN PRN Reason: Moderate Pain (4-6) Trazodone HCl (Desyrel) 50 mg PO HS PRN PRN Reason: Insomnia Last Admin: 02/27/18 21:46 Dose: 50 mg
[2018-03-01] MEDS: HYDROcodone/Acetaminophen 10/325 mg Tablet PO PRN ×2 (02:40→08:53)
[2018-03-01 07:34] VITALS: TEMP 98.9
[2018-03-01] MEDS: ALPRAZolam 0.25 MG TAB PO PRN (08:54)
[2018-03-01] MEDS: Megestrol Acetate 40 MG TAB PO SCH (08:55)
[2018-03-01] MEDS: hydrALAZINE 25 MG TAB PO SCH (08:55)
[2018-03-01] MEDS: Magnesium Oxide 400 MG TAB PO SCH (08:55)
[2018-03-01] MEDS: Cyanocobalamin (Vitamin B-12) 1,000 MCG TAB PO SCH (08:55)
[2018-03-01] MEDS: Senokot S 8.6-50 MG TAB PO SCH (08:56)
[2018-03-01] MEDS: Famotidine 20 MG TAB PO SCH (08:56)
[2018-03-01] MEDS: Folic Acid 1 MG TAB PO SCH (08:57)
[2018-03-01] MEDS: Carvedilol 6.25 MG TAB PO SCH (08:57)
[2018-03-01] MEDS: Multivitamin W/ Minerals 1 TAB PO SCH (08:57)
[2018-03-01] MEDS: Heparin 5,000 UNITS/ML VIAL SC SCH (08:59)
[2018-03-01] MEDS: Polyethylene Glycol 3350 17 GM Packet PO SCH (09:00)
--- NOTE | 2018-03-01 09:01 | PDOC.PN ---
- Subjective Encounter Start Date: 03/01/18 Encounter Start Time: 07:10 Patient seen and examined. No new complaints. No overnight events pt is pleasently confused, he does not have pain, on room air, vitals stable - Objective Resuscitation Status: Resuscitation Status DNR:Do Not Resuscitate MAR Reviewed: Yes Vital Signs & Weight: Vital Signs (12 hours) Temp Pulse Resp BP Pulse Ox 03/01/18 07:32 98.9 F 79 16 110/54 L 84 L 03/01/18 06:34 92 L 03/01/18 06:32 95 16 Weight Admit Weight 179 lb 7.3 oz Weight 174 lb 2.643 oz Most Recent Monitor Data Heart Rate from ECG 88 NIBP 122/62 NIBP BP-Mean 77 Respiration from ECG 16 SpO2 94 I&O: 02/28/18 03/01/18 03/02/18 06:59 06:59 06:59 Intake Total 840 1150 Output Total 2340 500 Balance -1500 650 Result Diagrams: 02/28/18 06:21 02/28/18 06:21 Phys Exam - Physical Examination Constitutional: NAD HEENT: PERRLA, moist MMs, sclera anicteric Neck: no JVD, supple Respiratory: no wheezing, no rales, no rhonchi Cardiovascular: RRR, no significant murmur, no rub Gastrointestinal: soft, non-tender, no distention, positive bowel sounds Musculoskeletal: no edema, pulses present Neurological: non-focal, normal sensation Lymphatic: no nodes Psychiatric: normal affect Skin: no rash, normal turgor Dx/Plan (1) Acute renal failure superimposed on stage 3 chronic kidney disease Code(s): N17.9 - ACUTE KIDNEY FAILURE, UNSPECIFIED; N18.3 - CHRONIC KIDNEY DISEASE, STAGE 3 (MODERATE) Status: Acute Comment: improved to baseline (2) Pleural effusion Code(s): J90 - PLEURAL EFFUSION, NOT ELSEWHERE CLASSIFIED Status: Acute Comment: s/p R Thoracentesis.Cx negative so far.Pathology +ve for Metastatic Cancer. R Pleurx cathter in place (3) CAD (coronary artery disease) Code(s): I25.10 - ATHSCL HEART DISEASE OF [place] CORONARY ARTERY W/O ANG PCTRS Status: Chronic Qualifiers: Coronary Disease-Associated Artery/Lesion type: [place] artery [place] vs. transplanted heart: [place] heart Associated angina: without angina Qualified Code(s): I25.10 - Atherosclerotic heart disease of [place] coronary artery without angina pectoris (4) Carotid stenosis, left Code(s): I65.22 - OCCLUSION AND STENOSIS OF LEFT CAROTID ARTERY Status: Chronic Comment: s/p angioplasty, stable (5) Chronic diastolic CHF (congestive heart failure) Code(s): I50.32 - CHRONIC DIASTOLIC (CONGESTIVE) HEART FAILURE Status: Chronic (6) HLD (hyperlipidemia) Code(s): E78.5 - HYPERLIPIDEMIA, UNSPECIFIED Status: Chronic Comment: Lipitor 40mg HS (7) HTN (hypertension) Code(s): I10 - ESSENTIAL (PRIMARY) HYPERTENSION Status: Chronic Qualifiers: Hypertension type: essential hypertension Qualified Code(s): I10 - Essential (primary) hypertension Comment: stable, (8) History of malignant neoplasm of tonsil Code(s): Z85.818 - PRSNL HX OF MALIG NEOPLM OF SITE OF LIP, ORAL CAV, & PHARYNX Status: Chronic Comment: s/p Chemo and XRT ,finished in 06/2017. (9) PAD (peripheral artery disease) Code(s): I73.9 - PERIPHERAL VASCULAR DISEASE, UNSPECIFIED Status: Chronic Comment: s/p angioplasty in past, stable (10) S/P CABG x 3 Code(s): Z95.1 - PRESENCE OF AORTOCORONARY BYPASS GRAFT Status: Chronic (11) Aspiration pneumonia due to regurgitated food Code(s): J69.0 - PNEUMONITIS DUE TO INHALATION OF FOOD AND VOMIT Status: Suspected Comment: (12) Acute respiratory failure with hypoxia Code(s): J96.01 - ACUTE RESPIRATORY FAILURE WITH HYPOXIA Status: Resolved Comment: improved.s/p IV Abx,IV steroids.extubated (13) Hypercalcemia of malignancy Code(s): E83.52 - HYPERCALCEMIA Status: Resolved (14) Hypokalemia Code(s): E87.6 - HYPOKALEMIA Status: Resolved (15) Hypomagnesemia Code(s): E83.42 - HYPOMAGNESEMIA Status: Resolved (16) Pain from bone metastases Code(s): G89.3 - NEOPLASM RELATED PAIN (ACUTE) (CHRONIC); C79.51 - SECONDARY MALIGNANT NEOPLASM OF BONE Status: Acute - Plan cont current plan of care, social psychologist * medication reviewed as below * symptomatic treatment * will consider discharge to home with home hospice when family ready * his prison prognosis is very poor. Review of Systems - Review of Systems Other: not reliable with pt due to his level of cognitive status - Medications/Allergies Allergies/Adverse Reactions: Allergies Allergy/AdvReac Type Severity Reaction Status Date / Time No Known Allergies Allergy Verified 02/12/18 20:47 Medications: Current Medications Acetaminophen (Tylenol) 1,000 mg PO Q6H PRN PRN Reason: Headache/Fever or Pain Last Admin: 02/24/18 02:44 Dose: 1,000 mg Hydrocodone Bitart/Acetaminophen ([place] 5/325) 1 tab PO Q4H PRN PRN Reason: Breakthrough Pain Last Admin: 02/24/18 22:07 Dose: 1 tab Hydrocodone Bitart/Acetaminophen ([place] 10/325) 1 tab PO Q4H PRN PRN Reason: Moderate to Severe Pain (4-10) Last Admin: 03/01/18 02:40 Dose: 1 tab Al Hydroxide/Mg Hydroxide (Maalox) 30 ml PO Q6H PRN PRN Reason: Heartburn or Indigestion Albuterol/Ipratropium (Duoneb) 3 ml NEB [id number] [facility] Last Admin: 03/01/18 06:32 Dose: 3 ml Alprazolam (Xanax) 0.25 mg PO TIDPRN PRN PRN Reason: Anxiety Last Admin: 02/27/18 08:17 Dose: 0.25 mg Aspirin (Aspirin Chewable) 81 mg PO DAILY [facility] Last Admin: 02/28/18 09:07 Dose: 81 mg Bisacodyl (Dulcolax) 10 mg [place] Q24H PRN PRN Reason: Constipation Carvedilol (Coreg) 6.25 mg PO BID-WM [facility] Last Admin: 02/28/18 18:11 Dose: 6.25 mg Cyanocobalamin (Vitamin B-12) 1,000 mcg PO DAILY [facility] Last Admin: 02/28/18 09:08 Dose: Not Given Famotidine (Pepcid) 20 mg PO DAILY [facility] Last Admin: 02/28/18 09:07 Dose: 20 mg Folic Acid (Folvite) 1 mg PO BID [facility] Last Admin: 02/28/18 20:27 Dose: 1 mg Heparin Sodium (Porcine) (Heparin) 5,000 units SC BID [facility] Last Admin: 02/28/18 20:28 Dose: 5,000 units Hydralazine HCl (Apresoline) 10 mg SLOW IVP Q4H PRN PRN Reason: SBP Greater Than 180 Last Admin: 02/17/18 05:02 Dose: 10 mg Hydralazine HCl (Apresoline) 25 mg PO BID [facility] Last Admin: 02/28/18 20:26 Dose: 25 mg Iron/Minerals/Multivitamins (Theragran M) 1 tab PO DAILY [facility] Last Admin: 02/28/18 09:09 Dose: Not Given Labetalol HCl (Normodyne) 10 mg SLOW IVP Q4H PRN PRN Reason: SBP Greater Than 180 Magnesium Oxide (Magnesium Oxide) 400 mg PO BID [facility] Last Admin: 02/28/18 20:27 Dose: 400 mg Megestrol Acetate (Megace) 40 mg PO DAILY [facility] Last Admin: 02/28/18 09:09 Dose: 40 mg Melatonin (Melatonin) 3 mg PO HS PRN PRN Reason: Insomnia Last Admin: 02/23/18 21:02 Dose: 3 mg Nitroglycerin (Nitrostat) 0.4 mg PO Q5MIN PRN PRN Reason: Chest Pain Ondansetron HCl (Zofran Odt) 4 mg PO Q6H PRN PRN Reason: Nausea/Vomiting Ondansetron HCl (Zofran) 4 mg IVP Q6H PRN PRN Reason: Nausea/Vomiting Polyethylene Glycol (Miralax) 17 gm PO BID [facility] Last Admin: 02/28/18 20:28 Dose: 17 gm Senna/Docusate Sodium (Senokot S) 1 tab PO BID [facility] Last Admin: 02/28/18 20:27 Dose: 1 tab Sodium Chloride (Flush - Normal Saline) 10 ml IVF PRN PRN PRN Reason: Saline Flush Tramadol HCl (Ultram) 50 mg PO Q6H PRN PRN Reason: Moderate Pain (4-6) Trazodone HCl (Desyrel) 50 mg PO HS PRN PRN Reason: Insomnia Last Admin: 02/27/18 21:46 Dose: 50 mg
[2018-03-01 09:04] VITALS: BP 115/57
[2018-03-01] MEDS: HYDROcodone/Acetaminophen 5/325 mg Tablet PO PRN (11:58)
--- NOTE | 2018-03-02 15:30 | ADD-DIS ---
ADDENDUM Please see my discharge summary dictated on 02/26/2018 for more detail. There is no change in my dis charge medication. This patient was planned for discharging to rehab, but the patient was declined f or rehab placement. The patient was having physical deconditioning and he was not in good position t o do rehabilitation anyways. Subsequently, rehabilitation case coordinator was working on [facility] t. The patient's was interested in seeing Dr. Mederos, who saw this patient afterward and Dr. Devon bowen recommended that there is no more chemotherapy and his prognosis is very poor and he recommend ed hospice. The patient has significant physical deconditioning and he has confusion. He does not h ave any focal neurological deficit. Palliative care was following while in hospital and they discuss ed with the patient's about discharge planning and subsequently, he decided to let him go home w [facility] family support and hospice. Hospice arranged. All necessary equipment for him at home. This pa nubia's long-term prognosis is very poor. The patient is seen and examined at bedside today. Please see my progress note from today for further details. The patient is planned for discharge to home w [facility] hospice.
== END 2018-03-01 12:13 | disposition hospice, home (50) | DRG 208 ==
LOC: ERS 15:55 → ERHOLD 18:26 → 2NO 20:31 → CCU 02-17 15:25 → ONC 02-20 17:26
PROVIDERS: ADMIT Internal Medicine; ATTEND Internal Medicine
PROC: 0W993ZZ Drainage of Right Pleural Cavity, Percutaneous Approach (ICD-10-PCS; 2018-02-13)
PROC: 0BH17EZ Insertion of Endotracheal Airway into Trachea, Via Natural or Artificial Opening (ICD-10-PCS; principal; 2018-02-17)
PROC: 5A1945Z Respiratory Ventilation, 24-96 Consecutive Hours (ICD-10-PCS; 2018-02-17)
PROC: 0W993ZZ Drainage of Right Pleural Cavity, Percutaneous Approach (ICD-10-PCS; 2018-02-18)
DX: C78.00 Secondary malignant neoplasm of unspecified lung (principal); N17.0 Acute kidney failure with tubular necrosis; J69.0 Pneumonitis due to inhalation of food and vomit; J96.01 Acute respiratory failure with hypoxia; G93.40 Encephalopathy, unspecified; I13.0 Hypertensive heart and chronic kidney disease with heart failure and stage 1 through stage 4 chronic kidney disease, or unspecified chronic kidney disease; I50.32 Chronic diastolic (congestive) heart failure; C79.51 Secondary malignant neoplasm of bone; J91.0 Malignant pleural effusion; E44.0 Moderate protein-calorie malnutrition; E83.52 Hypercalcemia; E86.0 Dehydration; N18.3 Chronic kidney disease, stage 3 (moderate); I25.10 Atherosclerotic heart disease of native coronary artery without angina pectoris; I65.22 Occlusion and stenosis of left carotid artery; E78.5 Hyperlipidemia, unspecified; Z85.89 Personal history of malignant neoplasm of other organs and systems; I73.9 Peripheral vascular disease, unspecified; Z95.1 Presence of aortocoronary bypass graft; E87.6 Hypokalemia; E83.42 Hypomagnesemia; G89.3 Neoplasm related pain (acute) (chronic); Z66 Do not resuscitate; D64.9 Anemia, unspecified; Z68.23 Body mass index [BMI] 23.0-23.9, adult
CPT/HCPCS: 32554; 36415; 36416; 36430; 70450; 71045; 74230; 76705; 76770; 78306; 80048; 80053; 80069; 80076; 81002; 81003; 81015; 82140; 82150; 82306; 82533; 82553; 82607; 82652; 82746; 82805; 82945; 83615; 83690; 83735; 83880; 83970; 83986; 84100; 84157; 84443; 84478; 84484; 85025; 85060; 86850; 86900; 86901; 87040; 87070; 87086; 87116; 87205; 87206; 88112; 88305; 88341; 88342; 89051; 92950; 93005; 93306; 94002; 94003; 94640; 94760; 96361; 96365; A4216; A9503; C1729; G8978-GP-CL; G8979-GP-CJ; G8987-GO-CK; G8988-GO-CI; G8996-GN-CK; G8997-GN-CI; G8997-GN-CJ; J0131; J0360; J0696; J1644; J1940; J2001; J2060; J2370; J2704; J2920; J2930; J3010; J3475; J3480; J3489; J7050; J7620; P9016; P9047; S0179